=== PATIENT | female | born 1945 | race Caucasian/White ===

== ENCOUNTER → 2016-11-26 | Outpatient (CLI) | payer OTHER ==
--- NOTE | 2016-11-26 12:15 | MA ---
Screening Digital Mammogram With iCAD Analysis Clinical Indications: Routine screening. Technique: Standard cephalocaudal and mediolateral oblique projections were obtained. This examinatio n was processed by the iCAD computer aided detection system. Comparison: November 2015, October 2014, August 2013, July 2012, June 2011, June 2010, January 2009. Breast density: Type B; Scattered fibroglandular densities. Findings: CAD was reviewed. No masses, suspicious calcifications or other signs of malignancy are id entified. There has been no significant change in the appearance of either breast. Impression: Negative mammogram. BI-RADS 1. Recommendation: Routine mammographic screening in one year. [facility] will send a result letter to the patient. Negative mammography should not preclude additional workup of a clinically suspicious finding. The patient's information is entered into a reminder system with a target due date for her next mammo gram.
== END ==
LOC: FIMAGING 09:47
DX: Z12.31 Encounter for screening mammogram for malignant neoplasm of breast (principal)
CPT/HCPCS: G0202

== ENCOUNTER 2017-01-06 11:38 | Emergency (ER) | payer OTHER ==
[2017-01-06 12:06] VITALS: BP 157/88; PULSE 71; RESP 16; TEMP 98.4; O2SAT 91
--- NOTE | 2017-01-06 14:15 | EDPHY ---
H & P Time Seen by Provider: 01/06/17 14:12 HPI/ROS: HPI: 71-year-old female presents to emergency department with chief concern left wrist pain. Onset at 10:00 a.m. when she slipped on a grape while shopping at [employer]. Purely a mechanical fall. Fell on her right knee, and outstretched left hand. Did not strike her head. No headache, neck pain, or back pain. Denies left shoulder, left elbow, or left arm pain. Reports pain of the radial aspect of the left wrist with swelling and mild ecchymosis. Denies weakness, numbness, tingling. Left hand dominant. Denies previous injury of the left wrist. 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 No acute distress. Head: Normalocephalic. Atraumatic. EENT: PERRLA. EOMI. Neck: Supple, nontender. No midline tenderness, full ROM. Respiratory: Breathing unlabored. CV: Chest nontender, atraumatic. Distal pulses 2+. Brisk cap refill all extremities. GI: Deferred Back: No midline thoracic or lumbar tenderness Neuro: Alert. Oriented x 3. Sensation intact all extremities. Skin: Skin warm, dry, intact. No ecchymosis, abrasions, or lacerations. Extremities: No discomfort to palpation of the left shoulder, elbow. Full ROM. Ecchymosis and swelling of the radial aspect of the left wrist. There is discomfort to palpation of the left scaphoid region. Decreased range of motion left wrist. Opposition intact. Neurovascular status intact. 2+ left radial pulse. Right hip, right knee, right ankle, right foot with full range of motion , nontender, atraumatic. DP/PT right lower extremity 2+. Constitutional: Initial Vital Signs Temperature (C) 36.9 C 01/06/17 12:02 Heart Rate 71 01/06/17 12:02 Respiratory Rate 16 01/06/17 12:02 Blood Pressure 157/88 H 01/06/17 12:02 O2 Sat (%) 91 L 01/06/17 12:02 O2 Delivery Mode Room Air Allergies/Adverse Reactions: tramadol Allergy (Severe, Verified 01/06/17 12:07) Other-Enter Comments Home Medications: Medication Instructions Recorded Ascorbic Acid [Vitamin C] 1,000 mg PO DAILY 06/09/15 Aspirin [Aspirin 81mg (*)] 81 mg PO DAILY 06/09/15 Cholecalciferol (Vitamin D3) 5,000 unit PO DAILY 06/09/15 [Vitamin D3] Fish Oil/Dha/Epa [Fish Oil 1,200 1 each PO DAILY 06/09/15 mg Fish Oil] Levothyroxine [Synthroid 125 mcg 125 mcg PO DAILY06 06/09/15 (*)] Multivitamins [Multivitamin (*)] 1 each PO DAILY 06/09/15 Rosuvastatin Calcium [Crestor 5mg] 2.5 mg PO MOTUWETHFRSA 06/09/15 Vit C/Dl-E AC/Lut/Copper/Znox 1 each PO BID 06/09/15 [Preservision Softgel] Fluticasone Nasal 08/25/16 Albuterol 01/06/17 Medical Decision Making - Diagnostics Imaging: Left Hand - 3 views Indication: Fall. Pain. Technique: AP, oblique, and lateral views. Comparison: None Findings: The bones are anatomically aligned. No acute fracture. Minimal osteoarthritis involves the interphalangeal joints and first metacarpocarpal joint. Impression: Negative. No acute fracture. Left Wrist Series, 4 views Indication: Pain. Fall. Comparison: None Findings: The demineralized bones are anatomically aligned. No acute fracture. Joint spaces are preserved. Mild productive arthropathy involves the first metacarpocarpal joint. The scapholunate ligament is borderline wide (3 mm). A small benign erosion is present along the distal navicular bone. Impression: 1. No acute fracture. 2. Laxity versus tear of the scapholunate ligament. Dictated By: Jose Hong MD ED Course/Re-evaluation: 71-year-old female presents to emergency department with injury of the left wrist. She sustained a mechanical fall when she slipped on a grape at [employer] today. She denies other injury. No neck or back pain. Left wrist x-ray shows possible scapholunate dissociation, patient has positive scaphoid tenderness of the left hand. Patient placed in a Velcro wrist splint- neurovascular status intact after application, referred to hand specialist on- call Dr. Kraft Differential Diagnosis: Differential diagnosis includes but is not limited to fracture, occult fracture , strain, ligament injury Departure - Departure Disposition: Home, Routine, Self-Care Clinical Impression: Left wrist injury, Scapholunate instability of left wrist Condition: Good Instructions: Wrist Injury (ED) Additional Instructions: Plan: You may use 400 mg of ibuprofen every 6 hours for fever, inflammation, or pain. Always take ibuprofen with food and stay well hydrated while taking. Do not exceed the maximum allowable dose in a 24 hour period which is 2400 mg. ice every 1-2 hours for 20 minutes for the the next 2-3 days Wear Velcro wrist splint while up and about Follow up with hand specialist Dr. Kraft listed in your paperwork by Friday or of this week--When you call to schedule appointment, please let the office know you are an "ER follow up" appointment" Minimize activity of the left wrist Referrals: Bruna Mercado MD [Primary Care Provider] - As per Instructions Musa Kraft MD [Medical Doctor] - As per Instructions
== END 2017-01-06 14:45 | disposition home or self-care (01) ==
DX: S69.92XA Unspecified injury of left wrist, hand and finger(s), initial encounter (principal); M25.332 Other instability, left wrist; Z87.891 Personal history of nicotine dependence; Z79.82 Long term (current) use of aspirin; W01.0XXA Fall on same level from slipping, tripping and stumbling without subsequent striking against object, initial encounter; Y92.512 Supermarket, store or market as the place of occurrence of the external cause; Y99.8 Other external cause status; Y93.89 Activity, other specified

== ENCOUNTER → 2017-11-07 | Outpatient (CLI) | payer OTHER ==
[~2017-11-07] MED LIST: GADOBUTROL 10 ML VIAL IVP ONE
== END ==
LOC: FIMAGING 08:33
PROVIDERS: ATTEND Psychiatry & Neurology Neurology
DX: R29.810 Facial weakness (principal)
CPT/HCPCS: 70553; 93880; A9585

== ENCOUNTER 2017-11-11 22:02 | Emergency (ER) | payer OTHER ==
[2017-11-11 22:11] VITALS: BP 148/93; PULSE 96; RESP 18; TEMP 98.4; O2SAT 90
--- NOTE | 2017-11-11 23:32 | EDPHY ---
H & P Stated Complaint: hx of tga, says found pt unconscious for 5-10 mins, now amnesia Time Seen by Provider: 11/11/17 22:56 HPI/ROS: HPI The patient presents with an episode of collapse associated with amnesia. The patient had a relatively normal day today, saw her primary care doctor, went to see a movie. She when out to dinner and had 2 glasses of wine. She went home and was in the hot tub for about 15 min. Her had gone to bed and was lying in bed when he heard a thud and he noticed that she had collapsed on the ground and was unconscious. It took her a few minutes to wake up but then she was able to stand up, though walks with an unsteady gait. Her noticed that the patient was very confused and did not remember what happened during the entire day today. She was also confused about upcoming events and could not recall a trip to [facility] which she is taking in a few weeks. Currently, the patient denies any complaints at all, she says she feels fine. She denies any chest pain, shortness of breath, headache, vomiting, vision changes, dizziness, lightheadedness. She has had 2 previous episodes which were identical according to her . These were in 2009 in 2014. She was seen in the emergency department in 2015 and was diagnosed with transient global amnesia after an evaluation versus presyncope. She has been followed by Neurology ever since. She had a neurology evaluation last week and underwent MRI of her brain about 1 week ago which was completely normal she says.. REVIEW OF SYSTEMS Constitutional: No fever, no chills. Eyes: No discharge. ENT: No sore throat. Cardiovascular: No chest pain, no palpitations. Respiratory: No cough, no shortness of breath. Gastrointestinal: No abdominal pain, no vomiting. Genitourinary: No hematuria. Musculoskeletal: No back pain. Skin: No rashes. Neurological: No headache. PMHx: History of transient global amnesia Soc Hx: Lives at home with , has multiple grandchildren, likes to travel PHYSICAL General Appearance: Alert, no distress Head, atraumatic Eyes: Pupils equal and round no pallor or injection ENT, Mouth: Mucous membranes moist Respiratory: There are no retractions, lungs are clear to auscultation Cardiovascular: Regular rate and rhythm Gastrointestinal: Abdomen is soft and non-tender, no masses, bowel sounds normal Neurological: A&O x4, cranial nerves 2-12 intact, 5/5 strength in upper and lower extremities which is symmetric, normal gait; no recall of the events of the last 24 hr Skin: Warm and dry, no rashes Musculoskeletal: Neck is supple non tender Extremities: symmetrical, full range of motion Psychiatric: Patient is oriented X 3, there is no agitation Source: Patient, Family Exam Limitations: Physical impairment - Personal History Tetanus Vaccine Date: < 10 years - Medical/Surgical History Hx Asthma: No Hx Chronic Respiratory Disease: No Hx Diabetes: No Hx Cardiac Disease: Yes Hx Renal Disease: No Hx Cirrhosis: No Hx Alcoholism: No Hx HIV/AIDS: No Hx Splenectomy or Spleen Trauma: No Other PMH: hypothyroid,high cholesterol,temporary global amnesia, bilateral cataract surgery, hysterectomy.R elbow ORIF. - Social History Smoking Status: Former smoker Constitutional: Initial Vital Signs Temperature (C) 36.9 C 11/11/17 22:06 Heart Rate 96 11/11/17 22:06 Respiratory Rate 18 11/11/17 22:06 Blood Pressure 148/93 H 11/11/17 22:06 O2 Sat (%) 90 L 11/11/17 22:06 O2 Delivery Mode Room Air Allergies/Adverse Reactions: tramadol Allergy (Severe, Verified 11/11/17 22:11) Other-Enter Comments Home Medications: Medication Instructions Recorded Ascorbic Acid [Vitamin C] 1,000 mg PO DAILY 06/09/15 Aspirin [Aspirin 81mg (*)] 81 mg PO DAILY 06/09/15 Cholecalciferol (Vitamin D3) 5,000 unit PO DAILY 06/09/15 [Vitamin D3] Fish Oil/Dha/Epa [Fish Oil 1,200 1 each PO DAILY 06/09/15 mg Fish Oil] Levothyroxine [Synthroid 125 mcg 125 mcg PO DAILY06 06/09/15 (*)] Multivitamins [Multivitamin (*)] 1 each PO DAILY 06/09/15 Rosuvastatin Calcium [Crestor 5mg] 2.5 mg PO MOTUWETHFRSA 06/09/15 Vit C/Dl-E AC/Lut/Copper/Znox 1 each PO BID 06/09/15 [Preservision Softgel] Fluticasone Nasal 08/25/16 Albuterol 03/20/17 Medical Decision Making Differential Diagnosis: This is a 72-year-old female, previously diagnosed with transient global amnesia who presents from home with an episode of collapse and subsequent amnesia. The patient has no recall of the event whatsoever. However, her heard her fall and he awoke to find her lying on the ground unconscious. She was able to wake fairly quickly and walk, initially with an unsteady gait which became more steady quickly. Her neurologic exam currently is normal except she does not recall any of the events of today. Her reports that her short-term memory seems to be improving since she has been in the emergency department. Differential diagnosis includes transient global amnesia, TIA, syncope, presyncope, arrhythmia, electrolyte disturbance, intracranial hemorrhage. I explained to the patient and would like to proceed with CT scan of head, EKG, laboratory testing. However both she and her declined any further testing. They feel this episode is identical to her prior episodes and previously all testing has been unrevealing. They would prefer to take her home to get some rest and have her follow up with her neurologist and primary care doctor in the morning. I explained that without the above testing we cannot rule out serious pathology such is life-threatening arrhythmia, intracranial hemorrhage, electrolyte disturbance. They accept these risks and would still like to go home. They are able to come back to the emergency department if her condition changes. They will be discharged home. I have advised them that if they change their mind they can return at any time. Departure - Departure Disposition: Home, Routine, Self-Care Clinical Impression: Loss of consciousness, Amnesia Condition: Good Instructions: Transient Global Amnesia (ED) Additional Instructions: Please follow-up with your primary care doctor and neurologist in 1-2 days. You should return to the emergency room if you would like to pursue further testing for this event. Referrals: Bruna Mercado MD [Primary Care Provider] - As per Instructions
== END 2017-11-11 23:36 | disposition home or self-care (01) ==
DX: R41.3 Other amnesia (principal); R55 Syncope and collapse; Z87.891 Personal history of nicotine dependence; Z79.82 Long term (current) use of aspirin

== ENCOUNTER 2017-11-12 11:39 | Emergency (ER) | payer OTHER ==
[2017-11-12 11:44] VITALS: RESP 18; TEMP 97.9
--- NOTE | 2017-11-12 12:07 | EDPHY ---
H & P Stated Complaint: seen in ed yesteerday post fall/is now concerned r/t pain at l clavicle Time Seen by Provider: 11/12/17 12:06 HPI/ROS: HPI: This is a 72-year-old female presents with Chief Complaint: seen in ed yesterday post fall/is now concerned r/t pain at l clavicle Location: Left collarbone Quality: Bruising Duration: Less than 12 hr Signs and Symptoms: No bleeding, no radiation, no numbness, no weakness, no tingling, no incontinence, no decreased range of motion, + swelling, + pain Timing: Gradual onset Severity: [id number] Context: Patient is left hand dominant, presents with complaints of left collarbone bruising and pain with coughing episodes. Patient is able to use her left shoulder and arm without any difficulty. He was seen in the emergency room last night status post collapse with amnesia. reports that she accidentally fell out of bed and landed between the wall in bed. At baseline walks with unsteady gait. Yesterday was offered head CT scan, EKG, laboratory testing, urinalysis but patient declined as this was like her other episodes. and patient both feel that there baseline today. They are just requesting an x-ray of the collarbone. Denies paresthesias/weakness/ decreased range of movement. Modifying Factors: Comment: ROS: see HPI Constitutional: No fever, no chills, no weight loss Eyes: No blurred vision Respiratory: No shortness of breath, no cough Cardiovascular: No chest pain Gastrointestinal: No nausea, no vomiting no diarrhea Genitourinary: No dysuria Extremities: No myalgias Neurologic: No weakness, no numbness Skin: No rashes Hematologic: No bruising, no bleeding MEDICAL/SURGICAL/SOCIAL HISTORY: Medical/surgical history: hypothyroid,high cholesterol,temporary global amnesia , bilateral cataract surgery, hysterectomy.R elbow ORIF. Social history: Lives at home with her . Has children and grandchildren. CONSTITUTIONAL: Pleasant elderly white female, awake and alert, no obvious distress HEENT: Atraumatic and normocephalic, PERRL, EOMI. Tympanic membranes clear. Oropharynx clear, no exudate and moist pink mucosa. Airway patent. No lymphadenopathy. No meningismus. Cardiovascular: Normal S1/S2, regular rate, regular rhythm, without murmur rub or gallop. PULMONARY/CHEST: Symmetrical and nontender. Clear to auscultation bilaterally. Good air movement. No accessory muscle usage. ABDOMEN: Soft, nondistended, nontender, no rebound, no guarding, no peritoneal signs, no masses or organomegaly. No CVAT. EXTREMITIES: 2/2 pulses, strength 5/5, left SHOULDER: Crepitus noted with any movement; Arc test abduction to 180, abduction to 45, horizontal flexion 130 , horizontal extension to 45, deltoid strength 5/5. No pain with Neer test/ Mahoney test (impingement). No Tenderness to palpation over AC joint. Distal aspect of collarbone shows ecchymosis; no tenting of skin; no crepitus. no deformities, no clubbing, no cyanosis or edema. NEUROLOGICAL: no focal neuro deficits. GCS 15. SKIN: Warm and dry, no erythema. no rash. Good capillary refill. Source: Patient, Family () Exam Limitations: No limitations - Personal History Current Tetanus/Diphtheria Vaccine: Yes Tetanus Vaccine Date: < 10 years - Medical/Surgical History Hx Asthma: No Hx Chronic Respiratory Disease: No Hx Diabetes: No Hx Cardiac Disease: Yes Hx Renal Disease: No Hx Cirrhosis: No Hx Alcoholism: No Hx HIV/AIDS: No Hx Splenectomy or Spleen Trauma: No Other PMH: hypothyroid,high cholesterol,temporary global amnesia, bilateral cataract surgery, hysterectomy.R elbow ORIF. - Social History Smoking Status: Former smoker Constitutional: Initial Vital Signs Temperature (C) 36.6 C 11/12/17 11:41 Heart Rate 97 11/12/17 11:41 Respiratory Rate 18 11/12/17 11:41 Blood Pressure 163/118 H 11/12/17 11:41 O2 Sat (%) 91 L 11/12/17 11:41 O2 Delivery Mode Room Air Allergies/Adverse Reactions: tramadol Allergy (Severe, Verified 11/12/17 11:40) Other-Enter Comments Home Medications: Medication Instructions Recorded Ascorbic Acid [Vitamin C] 1,000 mg PO DAILY 06/09/15 Aspirin [Aspirin 81mg (*)] 81 mg PO DAILY 06/09/15 Cholecalciferol (Vitamin D3) 5,000 unit PO DAILY 06/09/15 [Vitamin D3] Fish Oil/Dha/Epa [Fish Oil 1,200 1 each PO DAILY 06/09/15 mg Fish Oil] Levothyroxine [Synthroid 125 mcg 125 mcg PO DAILY06 06/09/15 (*)] Multivitamins [Multivitamin (*)] 1 each PO DAILY 06/09/15 Rosuvastatin Calcium [Crestor 5mg] 2.5 mg PO MOTUWETHFRSA 06/09/15 Vit C/Dl-E AC/Lut/Copper/Znox 1 each PO BID 06/09/15 [Preservision Softgel] Fluticasone Nasal 08/25/16 Albuterol 01/06/17 oxyCODONE/APAP 5/325 [Percocet 1 - 2 tab PO Q4H PRN #10 tab 11/12/17 5/325 (*)] Medical Decision Making - Diagnostics Imaging Results: Imaging Impressions Shoulder X-Ray 11/12/17 11:49 Impression: Nothing acute identified. 2. Left Clavicle, 2 views History: Pain, recent dislocation Comparison: Chest x-ray July 07, 2015 Findings: There is a fracture deformity of the mid left clavicle shaft that may be acute. It is overlapping approximately 3 cm. Impression: Indeterminant age midclavicular shaft fracture with overlap. The appearance is certainly new since June 2015. Correlation with the site of symptoms is recommended. Clavicle X-Ray 11/12/17 12:12 Impression: Nothing acute identified. 2. Left Clavicle, 2 views History: Pain, recent dislocation Comparison: Chest x-ray July 07, 2015 Findings: There is a fracture deformity of the mid left clavicle shaft that may be acute. It is overlapping approximately 3 cm. Impression: Indeterminant age midclavicular shaft fracture with overlap. The appearance is certainly new since June 2015. Correlation with the site of symptoms is recommended. Procedures: Procedure: Splint placement. A left sling was applied the Emergency Room pharmacy technician program director. After application of the splint I returned and re-examined the patient. The splint was adequately immobilizing the joint and distal to the splint the patient's circulation and sensation was intact. ED Course/Re-evaluation: Left collarbone x-ray, left shoulder x-ray ordered No signs of neurovascular compromise/tenting of skin/compartment syndrome/ extremities and joints examined above and below area of concern and are neurovascularly intact. Left collarbone x-ray my read shows midshaft fracture; mildly displaced; overlapping Placed in sling Patient reports that she does not tolerate tramadol; Percocet given with adequate pain relief; follow-up with Dr. Kumar. This patient was seen under the supervision of my secondary supervising physician. I evaluated care for this patient independently. Differential Diagnosis: Differential diagnosis lose but is not limited to collarbone fracture, AC joint sprain, humerus fracture, contusion, left shoulder sprain. Departure - Departure Disposition: Home, Routine, Self-Care Clinical Impression: Closed left clavicular fracture Qualifiers: Encounter type: initial encounter Clavicle location: shaft Fracture alignment: displaced Qualified Code(s): S42.022A - Displaced fracture of shaft of left clavicle, initial encounter for closed fracture Condition: Good Instructions: Clavicle Fracture (ED), Closed Reduction Internal Fixation of an Upper Extremity Fracture (DC) Additional Instructions: Wear the sling except to shower until seen by orthopedics. Take Tylenol 650 mg every 4 hours and/or Ibuprofen 600 mg every 8 hours with food as needed for pain. Use Percocet every 6 hours as needed for severe/breakthrough pain. Do not use Tylenol and Percocet concominantly. Apply ice for 30 minutes at a time; 2-3 times per day for the next 1-2 days. Follow up with Orthopedics in 3-5 days at which time they will evaluate and recommend with you if conservative management versus surgery is indicated. Referrals: Bruna Mercado MD [Primary Care Provider] - As per Instructions Harris Kumar MD [Medical Doctor] - As per Instructions Prescriptions: oxyCODONE/APAP 5/325 [Percocet 5/325 (*)] 1 - 2 tab PO Q4H PRN #10 tab PRN Reason: Pain, Severe
[2017-11-12] MEDS ORDERED: OXYCODONE/APAP 5/325 TAB PO ONE (13:01)
[2017-11-12 13:15] VITALS: BP 152/76; PULSE 74; O2SAT 98
== END 2017-11-12 13:16 | disposition home or self-care (01) ==
DX: S42.022D Displaced fracture of shaft of left clavicle, subsequent encounter for fracture with routine healing (principal); Z79.82 Long term (current) use of aspirin; Z87.891 Personal history of nicotine dependence; W06.XXXD Fall from bed, subsequent encounter
CPT/HCPCS: 73000; 73030; 99283; A4565

== ENCOUNTER 2017-11-13 12:18 | Observation (INO) | payer OTHER ==
--- NOTE | 2017-11-13 13:08 | EDPHY ---
H & P Stated Complaint: Dizziness, falls 24 hours, visit yesterday. Time Seen by Provider: 11/13/17 13:03 HPI/ROS: HPI: This is a 72-year-old female who presents with Chief Complaint: Dizziness, falls 24 hours, visit yesterday. Location: Head Quality: Dizziness Duration: 24 hr Signs and Symptoms: No fever, no chest pain, no shortness of breath, no diarrhea, no nausea, no vomiting Timing: Intermittent episodes Severity: Faux-du-pyzkchui Context: Patient has a history of temporary global amnesia,presents to the emergency room for the 3rd time with complaints of dizziness yesterday evening causing her to feel "woozy" and multiple falls. reports he was able to catch her and there was no hitting of her head. Although 2 days ago, patient also fell at that time and hit her head. She was offered a head CT scan and laboratory examination the emergency room but both patient and politely declined. I saw patient yesterday for left shoulder pain. Diagnosed her with a left minimally displaced collarbone fracture; she was placed in a sling. Patient was recently increased from 81 mg to 325 mg of aspirin within the last week. Denies fever, shortness of breath, chest pain, radiation, weakness, aphasia. Patient looks to her to complete the history. Modifying Factors: None Comment: ROS: see HPI Constitutional: No fever, no chills, no weight loss Eyes: No blurred vision Respiratory: No shortness of breath, no cough Cardiovascular: No chest pain Gastrointestinal: No nausea, no vomiting, no diarrhea Genitourinary: No dysuria Extremities: No myalgias Neurologic: No weakness, no numbness Skin: No rashes Hematologic: No bruising, no bleeding MEDICAL/SURGICAL/SOCIAL HISTORY: Medical/surgical history: hypothyroid,high cholesterol,temporary global amnesia , bilateral cataract surgery, hysterectomy.R elbow ORIF. Social history: CONSTITUTIONAL: Elderly pleasant nontoxic appearing female, talkative, awake and alert, no obvious distress HEENT: Atraumatic and normocephalic, PERRL, EOMI. Tympanic membranes clear. Oropharynx clear, no exudate and moist pink mucosa. Airway patent. No lymphadenopathy. No meningismus. Cardiovascular: Normal S1/S2, regular rate, regular rhythm, without murmur rub or gallop. PULMONARY/CHEST: Symmetrical and nontender. Clear to auscultation bilaterally. Good air movement. No accessory muscle usage. ABDOMEN: Soft, nondistended, nontender, no rebound, no guarding, no peritoneal signs, no masses or organomegaly. No CVAT. EXTREMITIES: 2/2 radial pulses, strength 5/5, left clavicle shows ecchymosis. Left SHOULDER: Arc test abduction to 1000, abduction to 45, horizontal flexion 100, horizontal extension to 45, deltoid strength 5/5. No pain with Neer test/Mahoney test (impingement). No Tenderness to palpation over AC joint. no clubbing, no cyanosis or edema. NEUROLOGICAL: no focal neuro deficits. GCS 15. Memory deficits noted. SKIN: Warm and dry, no erythema. no rash. Good capillary refill. Source: Patient, Family () - Personal History Current Tetanus/Diphtheria Vaccine: Unsure Current Tetanus Diphtheria and Acellular Pertussis (TDAP): Unsure Tetanus Vaccine Date: < 10 years - Medical/Surgical History Hx Asthma: No Hx Chronic Respiratory Disease: No Hx Diabetes: No Hx Cardiac Disease: Yes Hx Renal Disease: No Hx Cirrhosis: No Hx Alcoholism: No Hx HIV/AIDS: No Hx Splenectomy or Spleen Trauma: No Other PMH: hypothyroid,high cholesterol,temporary global amnesia, bilateral cataract surgery, hysterectomy.R elbow ORIF. - Social History Smoking Status: Former smoker Constitutional: Initial Vital Signs Temperature (C) 36.7 C 11/13/17 12:45 Heart Rate 89 11/13/17 12:45 Respiratory Rate 16 11/13/17 12:45 Blood Pressure 195/130 H 11/13/17 12:45 O2 Sat (%) 93 11/13/17 12:45 O2 Delivery Mode Room Air Allergies/Adverse Reactions: tramadol Allergy (Severe, Verified 11/13/17 12:45) Other-Enter Comments Home Medications: Medication Instructions Recorded Ascorbic Acid [Vitamin C] 1,000 mg PO DAILY 06/09/15 Cholecalciferol (Vitamin D3) 5,000 unit PO DAILY 06/09/15 [Vitamin D3] Multivitamins [Multivitamin (*)] 1 each PO DAILY 06/09/15 Fluticasone Nasal [Flonase Nasal 1 sprays NASAL DAILY PRN 08/25/16 [facility] (RX)] Albuterol [Proventil Inhaler HFA 1 - 2 puffs IH DAILY PRN 01/06/17 (*)] Aspirin [Aspirin 325 mg (*)] 325 mg PO DAILY 11/13/17 C/E/Zn/Cu/OM3/DHA/EPA/LUT/ZEAX 2 each PO DAILY 11/13/17 [Preservision Areds 2 Softgel] Escitalopram Oxalate [Lexapro] 10 mg PO DAILY 11/13/17 Levothyroxine [Synthroid 100 mcg 100 mcg PO DAILY06 11/13/17 (*)] [place]-3 Fatty Acids [Fish Oil 1000 1,000 mg PO DAILY 11/13/17 mg (*)] Omeprazole [Prilosec 20 mg] 20 mg PO DAILY 11/13/17 Phospserin/[place]-3/Dha/Epa 1 each PO DAILY 11/13/17 [Vayacog Capsules] Rosuvastatin Calcium [Crestor 10mg 10 mg PO DAILY 11/13/17 (RX)] Medical Decision Making - Diagnostics EKG Interpretation: 12 lead EKG: Indication: Dizziness Rhythm: Normal sinus rhythm, rate 84 beats per minute [place]: Normal Intervals: Normal QRS: Normal ST segments: Nonspecific changes INTERPRETATION: No acute ischemic changes The 12 lead EKG was interpreted by myself and with attending. Imaging Results: Imaging Impressions Head CT 11/13/17 13:08 Impression: 1. Subarachnoid hemorrhage in the right sylvian fissure and over the right frontal lobe. 2. Tiny right frontal hemorrhage in the periventricular white matter. 3. Additional findings as above. Findings discussed with Re Foster PA-C, on November 13, 2017 at 1346 hours. ED Course/Re-evaluation: EKG, labs, urinalysis, head CT scan ordered 1355: Called by radiologist who advised that there is a subarachnoid hemorrhage in the right sylvian fissure. New from MR on 11/07/2017. Patient noted to be hypertensive of systolic 180-190 upon arrival. Urinalysis shows signs of infection; urine culture sent; IV Rocephin given ED decision to consult for admission. Spoke with Neurology, Dr. Zamora, who kindly agrees to admit to provide further care. This patient was seen under the supervision of my secondary supervising physician. I evaluated care for this patient independently. Differential Diagnosis: Head injury including but not limited to concussion, skull fracture, intraparenchymal contusion, subarachnoid, subdural and epidural hematoma. - Data Points Laboratory Results: Laboratory Results 11/13/17 13:14 11/13/17 13:14 11/13/17 11/13/17 13:14 13:14 WBC 10.30 10^3/uL H 10^3/uL (3.80-9.50) RBC 4.51 10^6/uL 10^6/uL (4.18-5.33) Hgb 14.1 g/dL g/dL (12.6-16.3) Hct 41.7 % % (38.0-47.0) MCV 92.5 fL fL (81.5-99.8) MCH 31.3 pg pg (27.9-34.1) MCHC 33.8 g/dL g/dL (32.4-36.7) RDW 13.2 % % (11.5-15.2) Plt Count 292 10^3/uL 10^3/uL (150-400) MPV 8.6 fL L fL (8.7-11.7) Neut % (Auto) 64.0 % % (39.3-74.2) Lymph % (Auto) 23.8 % % (15.0-45.0) Cache % (Auto) 10.9 % % (4.5-13.0) Eos % (Auto) 0.3 % L % (0.6-7.6) Baso % (Auto) 0.6 % % (0.3-1.7) Nucleat RBC Rel Count 0.0 % % (0.0-0.2) Absolute Neuts (auto) 6.60 10^3/uL H 10^3/uL (1.70-6.50) Absolute Lymphs (auto) 2.45 10^3/uL 10^3/uL (1.00-3.00) Absolute Monos (auto) 1.12 10^3/uL H 10^3/uL (0.30-0.80) Absolute Eos (auto) 0.03 10^3/uL 10^3/uL (0.03-0.40) Absolute Basos (auto) 0.06 10^3/uL 10^3/uL (0.02-0.10) Absolute Nucleated RBC 0.00 10^3/uL 10^3/uL (0-0.01) Immature Gran % 0.4 % % (0.0-1.1) Immature Gran # 0.04 10^3/uL 10^3/uL (0.00-0.10) Sodium 136 mEq/L mEq/L (135-145) Potassium 4.5 mEq/L mEq/L (3.5-5.2) Chloride 99 mEq/L mEq/L (97-110) Carbon Dioxide 26 mEq/l mEq/l (22-31) Anion Gap 11 mEq/L mEq/L (8-16) BUN 17 mg/dL mg/dL (7-23) Creatinine 0.6 mg/dL mg/dL (0.6-1.0) Estimated GFR > 60 Glucose 115 mg/dL H mg/dL (70-100) Calcium 9.8 mg/dL mg/dL (8.5-10.4) Total Bilirubin 0.5 mg/dL mg/dL (0.1-1.4) Conjugated Bilirubin 0.3 mg/dL mg/dL (0.0-0.5) Unconjugated Bilirubin 0.2 mg/dL mg/dL (0.0-1.1) AST 35 IU/L IU/L (14-46) ALT 31 IU/L IU/L (9-52) Alkaline Phosphatase 103 IU/L IU/L (38-126) Troponin I < 0.012 ng/mL ng/mL (0.000-0.034) Total Protein 7.1 g/dL g/dL (6.3-8.2) Albumin 4.2 g/dL g/dL (3.5-5.0) Departure - Departure Disposition: [facility] Acute Clinical Impression: Subarachnoid hemorrhage Hypertension Qualifiers: Hypertension type: essential hypertension Qualified Code(s): I10 - Essential ( primary) hypertension Condition: Fair
--- NOTE | 2017-11-13 13:15 | CPEKG ---
Heart Rate: 84 RR Interval: 714 P-R Interval: 144 QRSD Interval: 64 QT Interval: 372 QTC Interval: 440 P [place]: 74 QRS [place]: 51 T Wave Broughton: 43 EKG Severity - NORMAL ECG - EKG Impression: SINUS RHYTHM Electronically Signed By: Yon Fuentes 13-Nov-2017 14:50:25
[2017-11-13 13:25] LABS: PLATELET COUNT 292 10^3/uL (150-400)
[2017-11-13] MEDS ORDERED: cefTRIAXone 1 GM in STERILE WATER INJ 10 ML IV ONE (15:19)
[2017-11-13] MEDS ORDERED: FLUTICASONE NASAL 120 SPRAYS/16 GM MDI NS PRN (20:47)
[2017-11-13] MEDS ORDERED: ALBUTEROL 60 PUFFS/8 GM MDI IH PRN (20:47)
[2017-11-13] MEDS ORDERED: ONDANSETRON 4 MG/2 ML VIAL IVP PRN (20:58)
[2017-11-13] MEDS ORDERED: ACETAMINOPHEN 325 MG TAB PO PRN (20:58)
[2017-11-13] MEDS ORDERED: ONDANSETRON DISINTEGRATING 4 MG TAB PO PRN (20:58)
[2017-11-13] MEDS ORDERED: NS 1,000 ML IV SCH (21:00)
--- NOTE | 2017-11-13 21:06 | GCON ---
[f rep st] CONSULTATION NEUROSURGERY CONSULTATION DATE OF CONSULTATION: 11/13/2017 TIME SEEN: The patient was seen and evaluated and [facility] at 4 p.m. HPI: The patient is a 72-year-old lady with some unusual recent episodes, which she and her call transient global amnesia. Apparently, she gets woozy and then apparently has syncopal episodes. They then say that her memory is delayed for approximately 4-5 hours after these episodes. She did have a fall about 2 days ago where she fell and had a clavicle fracture. She then again got dizzy i n the middle of the night last night and fell, but did not hit her head. Again, today, she was somew hat dizzy so she came into the ER, and a CT of the head showed a very tiny amount of right sylvian tr aumatic subarachnoid hemorrhage. There is no shift or mass effect. She is currently completely asym ptomatic and feels fine with the exception of the shoulder pain. Her dizziness is gone. She does linn ve an outpatient neurologist, Dr. Lizette Pitts, in [place], and they have been working up her syncop al issues. REVIEW OF SYSTEMS: A 10-point review of systems is negative other than described above in HPI. PAST MEDICAL AND SURGICAL HISTORY: 1. Hypothyroidism. 2. Hypercholesterolemia. 3. Temporary global amnesia. 4. Bilateral cataract. 5. Hysterectomy. 6. Right elbow open reduction internal fixation. SOCIAL HISTORY: The patient is . She is accompanied by her . She denies any alcohol, tobacco, or other drug use. FAMILY HISTORY: Negative for any neurologic disease and remaining medical history is noncontributory to this admission. ALLERGIES: Tramadol. MEDICATIONS: 1. Vitamin C. 2. Vitamin D. 3. Multivitamin. 4. Flonase. 5. Albuterol. 6. Aspirin. 7. Lexapro. 8. Synthroid. 9. Fish oil. 10. Prilosec. 11. Rosuvastatin. PHYSICAL EXAMINATION: VITAL SIGNS: Currently, she is afebrile with normal stable vital signs. GENE RAL: She is awake, alert, and oriented x3. HEENT: Pupils are equal, round, reactive to light. Ext raocular movements are intact. Face symmetric. Tongue is midline. Palate is symmetric. EXTREMITIE S: She has 5/5 strength at the deltoids, biceps, triceps, wrist flexion, extension, and fisher eel bilater ally. Lower extremities: She has 5/5 strength of the hip flexors and extensors, knee flexors and ex tensors, and plantar and dorsiflexion bilaterally. NEUROLOGIC: Her sensation is normal, deep tendon reflexes are normal, and her speech is normal. IMAGING: See HPI. LABORATORY DATA: White count is 10.3, hemoglobin 14.1, hematocrit 41.7, platelet count is 292,000. Sodium is 136, potassium 4.5, BUN 17, creatinine 0.6, glucose 115. ASSESSMENT AND PLAN: The patient is a 72-year-old woman who has suffered multiple recent falls with what she is describing as temporary global amnesia. She is in the process of getting these falls wor ked up. With her fall of 2 days ago, it appears as though she may have had a tiny traumatic subarach noid hemorrhage. I do not think that had anything to do with any of her symptoms that caused her to come to the hospital, namely the dizziness, however this seems to be more related to her underlying p athology. I do not think that any further CT scans or imaging for the subarachnoid hemorrhage are ne cessary and the medicine team is going to work her up for the other issues. We will see the patient again tomorrow morning to be sure that she is neurologically stable, but othe rwise will likely sign off. Please let us know if we can be of any further assistance in the future. I do not think that it is necessary to stop her aspirin given this tiny amount of traumatic subarac hnoid hemorrhage. Thanks for the kind consultation. /[id number]/MODL
[2017-11-13] MEDS ORDERED: IOPAMIDOL (ISOVUE 370) 100 ML BTL IV ONE (21:15)
[2017-11-13] MEDS ORDERED: OXYCODONE/APAP 5/325 TAB PO PRN (21:20)
--- NOTE | 2017-11-13 21:52 | GHP ---
[f rep st] HISTORY AND PHYSICAL DATE OF ADMISSION: 11/13/2017 HISTORY OF PRESENT ILLNESS: The patient is a pleasant 72-year-old female, with a history of transien t global amnesia which has in her been described as some loss of memory with falls. She has actually been in the ER a couple of times over the last few days with falls and she actually hit her head and wreath maker her shoulder. She was here on the , the , and then again today. She declined head C T a couple of days ago but ultimately got one today, showing a small subarachnoid hemorrhage. She al so fractured her mid left clavicle. She re-presented today with the complaints of dizziness causing her to feel woozy with falls. She linn s never had an outpatient desk monitor. She has never had an EEG. She denies any history of prio r cardiac morbidity. On the , she was diagnosed with a clavicular fracture and given a sling. She was seen by Neurosurgery, who felt that further management of her subarachnoid hemorrhage was unn ecessary given its small size. To clarify, it sounds like she had an episode 2 days ago where she fell and hit her clavicle and then she got dizzy last night and fell but did not hit her head. Again, she felt dizzy today where she h ad a small amount of subarachnoid and intraparenchymal hemorrhage. The patient denies exertional angina. She does have a history of hyperlipidemia and she takes an asp irin daily. REVIEW OF SYSTEMS: A complete 10-point review of systems was conducted and negative except as noted in the HPI. PAST MEDICAL HISTORY: 1. Hypothyroidism. 2. Hyperlipidemia. 3. Reactive airway disease. 4. Reflux. ALLERGIES: Tramadol. HOME MEDICATIONS: 1. Aspirin. 2. Ascorbic acid. 3. Albuterol. 4. Oxycodone. 5. PreserVision. 6. Vitamin D3. 7. Escitalopram. 8. Levothyroxine. 9. Multivitamin. 10. Fish oil. 11. Omeprazole. 12. Vayacog capsules. 13. Rosuvastatin. SOCIAL HISTORY: No tobacco, no alcohol. 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 FAMILY HISTORY: Parents . PHYSICAL EXAM: VITAL SIGNS: Today, presenting blood pressure 195/130, pulse 89, breathing 16 times a minute, 92% on room air. She has become tachycardic. She had orthostatic vital signs checked whic h showed that while her heart rate went from 116 to 131, she did not become hypotensive. GENERAL: N o acute distress. HEENT: Sclerae anicteric. Oropharynx clear. Mucous membranes are moist. NECK: Supple without lymphadenopathy or JVD. LUNGS: Clear to auscultation bilaterally. HEART: S1, S2. Tachycardic. ABDOMEN: Soft, nontender, nondistended. LOWER EXTREMITIES: Without edema. Calves a re nontender. She has bruising over the left shoulder and clavicle area. SKIN: Without rash. NEUR OLOGIC: Nonfocal. STUDIES: EKG interpreted by me shows sinus at 84 with normal axis and intervals. Q-wave in lead 3 t hat is pretty small. No ST or T-wave changes. Head CT shows subarachnoid hemorrhage in the right sy lvian fissure and over the right frontal lobe, entire right frontal hemorrhage with periventricular w thelma matter. I discussed the case with Dr. Roc Zamora of Neurosurgery. LABORATORY DATA: White count 10.3, hematocrit 42, platelets of 292,000. Sodium 136, potassium 4.5, chloride 99, bicarb 26, BUN 17, creatinine 0.6, glucose 115. Troponin negative. UA shows 5-10 white cells. ASSESSMENT AND PLAN: This is a 72-year-old female with falls with injury, characterized as transient global amnesia. 1. Transient global amnesia. This is not consistent with this diagnosis. Typically, these people h ave no other neurologic symptoms other than a lapse of memory that this slowly resolves. I have seri ous concerns that this test represents this. 2. Falls with injury. This is concerning for seizures and/or cardiac arrhythmia. I have placed the patient on telemetry. I have ordered an EEG for the morning. She should be discharged with a 30-da y event monitor at least. Cardiology can be consulted in the morning on the . 3. Sinus tachycardia with falls. This warrants evaluation for pulmonary embolism. I will also chec k a TSH. I have ordered a CT angiogram. Certainly, if it is positive for pulmonary embolism, then a nticoagulation will need to be discussed with Neurosurgery. 4. Hyperlipidemia. Continue her statin. 5. Reactive airway disease. Continue her albuterol. DISPOSITION: Inpatient status. /[id number]/MODL
[2017-11-13] MEDS ORDERED: hydrALAZINE 20 MG/ML VIAL IVP PRN (22:24)
[2017-11-14 05:27] LABS: PLATELET COUNT 255 10^3/uL (150-400)
[2017-11-14] MEDS ORDERED: OXYCODONE/APAP 5/325 TAB PO PRN (06:00)
[2017-11-14] MEDS ORDERED: LEVOTHYROXINE 100 MCG TAB PO SCH (06:00)
[2017-11-14 07:56] VITALS: BP 137/77; PULSE 94; RESP 15; TEMP 98.5; O2SAT 91
--- NOTE | 2017-11-14 08:44 | SOAPPROG ---
SOAP Progress Note Assessment/Plan: Assessment: 72 female with left clavicle fracture. minimally painful small old TSAH on CTH. Neuro intact. Plan: We will sign off. No follow up needed. Discussed with Dr. Zamora Subjective: Awake, alert, feeling fine. Denies JIMENES or focal neuro changes She wants to go home Objective: Vital Signs Temp Pulse Resp BP Pulse Ox 36.9 C 94 15 137/77 H 91 L 11/14/17 07:51 11/14/17 07:51 11/14/17 07:51 11/14/17 07:51 11/14/17 07:51 Laboratory Results 11/14/17 05:17 11/14/17 05:17 11/13/17 11/14/17 11/15/17 05:59 05:59 05:59 Intake Total 1325 Balance 1325 Neuro: A+0x4 no facial droop no pronator drift equal strength throughout follows commands ICD10 Worksheet Patient Problems: Problems Problem Status Onset Hypertension Acute Subarachnoid hemorrhage Acute TIA (transient ischemic attack) Acute
[2017-11-14] MEDS ORDERED: MULTIVITAMINS 1 EACH TAB PO SCH (09:00)
[2017-11-14] MEDS ORDERED: PRESERVISION AREDS2 FORMULA EYE VIT 1 EACH PO SCH (09:00)
[2017-11-14] MEDS ORDERED: CHOLECALCIFEROL VIT D3 2,000 UNITS TAB/CAP PO SCH (09:00)
[2017-11-14] MEDS ORDERED: ESCITALOPRAM OXALATE 10 MG TAB PO SCH (09:00)
[2017-11-14] MEDS ORDERED: ASCORBIC ACID 500 MG TAB PO SCH (09:00)
[2017-11-14] MEDS ORDERED: ENOXAPARIN 40 MG/0.4 ML SYR SC SCH (09:00)
[2017-11-14] MEDS ORDERED: ROSUVASTATIN CALCIUM 10 MG TAB PO SCH (09:00)
[2017-11-14] MEDS ORDERED: ASPIRIN 325 MG TAB PO SCH (09:00)
[2017-11-14] MEDS ORDERED: VAYACOG PO SCH (09:00)
[2017-11-14] MEDS ORDERED: OMEGA-3 FATTY ACIDS 1,000 MG CAP PO SCH (09:00)
[2017-11-14] MEDS ORDERED: PANTOPRAZOLE SODIUM 40 MG TAB PO SCH (09:00)
--- NOTE | 2017-11-14 12:50 | GDS ---
[f rep st] DISCHARGE SUMMARY ALL DIAGNOSES: 1. Multiple recent falls. 2. History of transient global amnesia. 3. Subarachnoid hemorrhage. 4. Broken clavicle. 5. Sinus tachycardia. 6. Hyperlipidemia. 7. Reactive airways disease. HOSPITAL COURSE: A 72-year-old female with multiple falls over the last 3 days , described as loss of consciousness, no real postictal period. Workup here included telemetry monitoring, which is negative for arrhythmia. Additionally, she had a CT angiogram, which was negative for pulmonary embolus. She had a head CT, which showed a subarachnoid hemorrhage. She was seen by Neurosurgery, who has cleared her for discharge, recommends no followup for this. I offered her ongoing admission to further evaluate the etiology of her falls versus syncope. She is very anxious for discharge at this time. I offered an inpatient EEG, echocardiogram, cardiology evaluation. She would prefer to do this as an outpatient. I have set her up to olive picker a Holter monitor at [facility] today after discharge. She also has an outpatient echocardiogram ordered. She will also make a followup in the next 3-4 days, with a aircraft painter apprentice or PA/ACCOUNTS RECEIVABLE BOOKKEEPER , to review the results of this testing. She will follow up with her neurologist , Lizette Candelario in [place], for outpatient EEG. I have stressed to her that I am very concerned about her multiple falls. She expresses understanding and will follow up appropriately. BILLING: I spent more than 30 minutes on the day of discharge coordinating care. Addendum: urine culture with GNR NLF. Previous cultures with e. coli, susceptible to ancef. RX called into pharmacy for keflex x 6 days. Left for patient. /[id number]/MODL MTDD
== END 2017-11-14 14:08 | disposition home or self-care (01) ==
LOC: INTOOBSV 14:01 → F2N 16:32
PROVIDERS: ADMIT Neurological Surgery; ATTEND Student in an Organized Health Care Education/Training Program
DX: S06.6X0A Traumatic subarachnoid hemorrhage without loss of consciousness, initial encounter (principal); R29.6 Repeated falls; S42.022A Displaced fracture of shaft of left clavicle, initial encounter for closed fracture; N39.0 Urinary tract infection, site not specified; B96.20 Unspecified Escherichia coli [E. coli] as the cause of diseases classified elsewhere; Z16.11 Resistance to penicillins; R42 Dizziness and giddiness; R41.3 Other amnesia; R03.0 Elevated blood-pressure reading, without diagnosis of hypertension; R00.0 Tachycardia, unspecified; E78.5 Hyperlipidemia, unspecified; J98.4 Other disorders of lung; E03.9 Hypothyroidism, unspecified; W19.XXXD Unspecified fall, subsequent encounter; K21.9 Gastro-esophageal reflux disease without esophagitis; Z79.82 Long term (current) use of aspirin; Z87.891 Personal history of nicotine dependence; Z66 Do not resuscitate
CPT/HCPCS: 70450; 71275; 92507; 92523; 93005; 96374; 97161; 99285; G0378; G8978; G8979; G8980; G9168; G9169; G9170; J0360; J0696; Q9967; 84481-90

== ENCOUNTER 2017-11-24 15:37 | Emergency (ER) | payer OTHER ==
--- NOTE | 2017-11-24 17:40 | CPEKG ---
Heart Rate: 77 RR Interval: 779 P-R Interval: 160 QRSD Interval: 64 QT Interval: 384 QTC Interval: 435 P [place]: 76 QRS Guinda: 58 T Wave Guinda: 50 EKG Severity - NORMAL ECG - EKG Impression: SINUS RHYTHM Electronically Signed By: Catrina Tsai 24-Nov-2017 23:30:07
--- NOTE | 2017-11-24 17:52 | EDPHY ---
H & P Stated Complaint: BP high today Time Seen by Provider: 11/24/17 16:57 HPI/ROS: Chief complaint: High blood pressure History of present illness: This is a 72-year-old female with multiple medical problems including a recent fall resulting in a subarachnoid hemorrhage who presents to the emergency department for high blood pressure. Patient does not have a history of high blood pressure. She is not currently treated for blood pressure. She has been monitoring her blood pressure at home with a home device and has noted her blood pressure which has been elevated over the last few days with maximum elevation today in the low 200s over 100s. In discussion with patient she states she has a minor headache although she has had a headache since she injured her head a few weeks ago. She denies other associated signs or symptoms including no cough, no trouble breathing, no chest pain, no changes in urinary habits, no pain or swelling in the legs or other parts of the body. Review of systems: A 10 point review of systems was obtained and other than described above was negative - Personal History Current Tetanus Diphtheria and Acellular Pertussis (TDAP): Yes Tetanus Vaccine Date: < 10 years - Medical/Surgical History Hx Asthma: No Hx Chronic Respiratory Disease: No Hx Diabetes: No Hx Cardiac Disease: Yes Hx Renal Disease: No Hx Cirrhosis: No Hx Alcoholism: No Hx HIV/AIDS: No Hx Splenectomy or Spleen Trauma: No Other PMH: hypothyroid,high cholesterol,temporary global amnesia, bilateral cataract surgery, hysterectomy.R elbow ORIF., mild asthma - Social History Smoking Status: Former smoker - Physical Exam Exam: General Appearance: Alert, no distress. Eyes: Pupils equal and round no pallor or injection. ENT, Mouth: Mucous membranes moist. Respiratory: There are no retractions, lungs are clear to auscultation. Cardiovascular: Regular rate and rhythm. Gastrointestinal: Abdomen is soft and non tender, no masses, bowel sounds normal. Neurological: Alert and oriented x4. Cranial nerves 2-12 grossly intact. Strength and sensation intact and symmetrical. No meningismus. She is ambulating well. Skin: Warm and dry, no rashes. Musculoskeletal: Neck is supple non tender. Extremities are symmetrical, full range of motion. Psychiatric: Patient is oriented X 3, there is no agitation. Constitutional: Initial Vital Signs Temperature (C) 36.9 C 11/24/17 16:00 Heart Rate 76 11/24/17 16:00 Respiratory Rate 18 11/24/17 16:00 Blood Pressure 176/121 H 11/24/17 16:00 O2 Sat (%) 94 11/24/17 16:00 O2 Delivery Mode Room Air Allergies/Adverse Reactions: tramadol Allergy (Unknown, Verified 11/24/17 15:58) Other-Enter Comments Home Medications: Medication Instructions Recorded Albuterol [Proventil Inhaler HFA 1 - 2 puffs IH DAILY PRN 01/06/17 (*)] Aspirin [Aspirin 325 mg (*)] 325 mg PO DAILY 11/13/17 Escitalopram Oxalate [Lexapro 10 10 mg PO DAILY 11/13/17 MG] Levothyroxine [Synthroid 100 mcg 100 mcg PO DAILY06 11/13/17 (*)] Omeprazole [Prilosec 20 mg] 20 mg PO DAILY 11/13/17 Rosuvastatin Calcium [Crestor] 10 mg PO DAILY 11/13/17 Lisinopril 10 mg PO DAILY #14 tablet 11/24/17 Medical Decision Making - Diagnostics Imaging Results: Imaging Impressions Head CT 11/24/17 17:08 Impression: Stable right posterior frontal periventricular hemorrhage without new or extended hemorrhage. Results called to Sachin Gee MA at 5:35 PM. General information for patients regarding this examination can be found at [email or web address]. If you have questions or comments about this report, please contact me at (hospital) or [phone] (cell). Imaging: Discussed imaging studies w/ machine scallop cutter Radiologist ED Course/Re-evaluation: Patient is discussed with my secondary supervising physician Dr. Catrina Tsai. Patient presents to the emergency department hypertensive. She has a mild headache. She is well appearing. Physical exam is benign including a nonfocal neurologic exam. CT scan of the head is stable compared to previous one. Blood studies are unremarkable. I do not appreciate evidence of end- organ damage. I have consulted with the physician assistant professor surgical technology relationship assoc for patient 's primary care doctor. We have agreed to start patient on lisinopril 10 mg orally once daily. She is given a dose this evening and will start continue tomorrow. She will follow up with her primary care doctor tomorrow for recheck. In addition she has an appointment with a hospital nurse liaison in 3 days. Home care is discussed. Strict return precautions are given. The patient voiced understanding and agreement with plan. Differential Diagnosis: Included but not limited to hypertension, hypertensive urgency, hypertensive emergency - Data Points Laboratory Results: Laboratory Results 11/24/17 17:53 11/24/17 17:53 18 11/24/17 17:53 17:53 WBC 8.15 10^3/uL 10^3/uL (3.80-9.50) RBC 3.84 10^6/uL L 10^6/uL (4.18-5.33) Hgb 12.3 g/dL L g/dL (12.6-16.3) Hct 35.7 % L % (38.0-47.0) MCV 93.0 fL fL (81.5-99.8) MCH 32.0 pg pg (27.9-34.1) MCHC 34.5 g/dL g/dL (32.4-36.7) RDW 13.8 % % (11.5-15.2) Plt Count 424 10^3/uL H 10^3/uL (150-400) MPV 8.0 fL L fL (8.7-11.7) Neut % (Auto) 60.0 % % (39.3-74.2) Lymph % (Auto) 27.1 % % (15.0-45.0) [place] % (Auto) 8.8 % % (4.5-13.0) Eos % (Auto) 2.6 % % (0.6-7.6) Baso % (Auto) 1.1 % % (0.3-1.7) Nucleat RBC Rel Count 0.0 % % (0.0-0.2) Absolute Neuts (auto) 4.89 10^3/uL 10^3/uL (1.70-6.50) Absolute Lymphs (auto) 2.21 10^3/uL 10^3/uL (1.00-3.00) Absolute Monos (auto) 0.72 10^3/uL 10^3/uL (0.30-0.80) Absolute Eos (auto) 0.21 10^3/uL 10^3/uL (0.03-0.40) Absolute Basos (auto) 0.09 10^3/uL 10^3/uL (0.02-0.10) Absolute Nucleated RBC 0.00 10^3/uL 10^3/uL (0-0.01) Immature Gran % 0.4 % % (0.0-1.1) Immature Gran # 0.03 10^3/uL 10^3/uL (0.00-0.10) Sodium 130 mEq/L L mEq/L (135-145) Potassium 4.3 mEq/L mEq/L (3.5-5.2) Chloride 93 mEq/L L mEq/L (97-110) Carbon Dioxide 24 mEq/l mEq/l (22-31) Anion Gap 13 mEq/L mEq/L (8-16) BUN 11 mg/dL mg/dL (7-23) Creatinine 0.6 mg/dL mg/dL (0.6-1.0) Estimated GFR > 60 Glucose 98 mg/dL mg/dL (70-100) Calcium 9.8 mg/dL mg/dL (8.5-10.4) Troponin I < 0.012 ng/mL ng/mL (0.000-0.034) Medications Given: Discontinued Medications Lisinopril (Zestril) 10 mg PO EDNOW ONE Stop: 11/24/17 18:30 Last Admin: 11/24/17 19:00 Dose: 10 mg Departure - Departure Disposition: Home, Routine, Self-Care Clinical Impression: Hypertension Qualifiers: Hypertension type: unspecified Qualified Code(s): I10 - Essential (primary) hypertension Condition: Good Instructions: Hypertension (ED) Additional Instructions: Follow up with your primary care doctor tomorrow for recheck If symptoms worsen or new symptoms develop return to the emergency room for recheck Referrals: Bruna Mercado MD [Primary Care Provider] - As per Instructions Prescriptions: Lisinopril 10 mg PO DAILY #14 tablet
[2017-11-24 18:07] LABS: PLATELET COUNT 424 10^3/uL (150-400)
[2017-11-24] MEDS ORDERED: LISINOPRIL 20 MG TAB PO ONE (18:29)
[2017-11-24 19:38] VITALS: BP 186/111; PULSE 75; RESP 16; TEMP 97.9; O2SAT 96
== END 2017-11-24 19:39 | disposition home or self-care (01) ==
DX: I10 Essential (primary) hypertension (principal); J45.909 Unspecified asthma, uncomplicated; Z87.891 Personal history of nicotine dependence; Z79.82 Long term (current) use of aspirin

== ENCOUNTER → 2017-12-24 | Outpatient (CLI) | payer OTHER | LOC: BMCIMAGING 16:23 | PROVIDERS: ATTEND Family Medicine Geriatric Medicine | DX: J98.11 Atelectasis (principal); J84.10 Pulmonary fibrosis, unspecified ==

== ENCOUNTER → 2018-01-07 | Outpatient (CLI) | payer OTHER | LOC: FIMAGING 14:03 | PROVIDERS: ATTEND Family Medicine Geriatric Medicine | DX: Z12.31 Encounter for screening mammogram for malignant neoplasm of breast (principal) ==

== ENCOUNTER 2018-07-04 15:04 | Observation (INO) | payer OTHER ==
--- NOTE | 2018-07-04 15:24 | EDPHY ---
H & P Time Seen by Provider: 07/04/18 15:23 HPI/ROS: CHIEF COMPLAINT: Cough and shortness of breath HISTORY OF PRESENT ILLNESS: Patient got sick on Friday with a cough. Increasing shortness of breath since then. Worse with walking or exertion but not positional. Associated with cough and yellow sputum but no fever or chills. No leg swelling. Symptoms moderate today. REVIEW OF SYSTEMS: Eye: no change in vision ENT: Recent congestion with seasonal allergies. Cardiac: no chest pain or syncope Pulmonary: HPI Abdomen: no vomiting, diarrhea, abdominal pain Musculoskeletal: No leg swelling Skin: no rash Neuro: no headache Constitutional: no fever : no urinary symptoms A comprehensive 10 point review of systems is otherwise negative aside from elements mentioned in the history of present illness. PAST MEDICAL HISTORY: Includes hypothyroid, high cholesterol, global amnesia, cataract surgery, hysterectomy, right elbow surgery. Asthma, still uses Spiriva Social history: Nonsmoker General Appearance: Alert and conversant, cooperative. Eyes: No scleral icterus. ENT, Mouth: Normal mucous membranes. Respiratory: Speaks in full sentences but mildly tachypneic. Bilateral expiratory wheezes with prolonged expiratory phase but symmetric breath sounds. Cardiovascular: Regular rate and rhythm. Gastrointestinal: Abdomen is soft and non tender. Neurological: Alert, face symmetric, normal motor and sensory in extremities. Skin: Warm and dry, no rashes. Musculoskeletal: No peripheral edema. Psychiatric: Not agitated. Emergency Department course/MDM: Presents with clinical evidence of reactive airway disease. Albuterol and Atrovent, steroids discussed and consented. Chest x-ray and labs. EKG. Low suspicion for PE or ACS. 1616: Chest x-ray reviewed with Dr. Fox shows bronchitis pattern but no definite infiltrate. Results discussed with the patient at this time, plan to treat for asthma. 1724: Discussed with [place]; hypoxic at 89% on RA, admit for oxygen and nebs and steroids. Smoking Status: Former smoker Constitutional: Initial Vital Signs Temperature (C) 37.3 C 07/04/18 15:08 Heart Rate 92 07/04/18 15:08 Respiratory Rate 18 07/04/18 15:08 Blood Pressure 173/103 H 07/04/18 15:08 O2 Sat (%) 90 L 07/04/18 15:08 O2 Delivery Mode Room Air Allergies/Adverse Reactions: tramadol Allergy (Unknown, Verified 11/24/17 15:58) Other-Enter Comments Home Medications: Medication Instructions Recorded Albuterol [Proventil Inhaler HFA 1 - 2 puffs IH DAILY PRN 01/06/17 (*)] Aspirin [Aspirin 325 mg (*)] 325 mg PO DAILY 11/13/17 Escitalopram Oxalate [Lexapro 10 10 mg PO DAILY 11/13/17 MG] Levothyroxine [Synthroid 100 mcg 100 mcg PO DAILY06 11/13/17 (*)] Omeprazole [Prilosec 20 mg] 20 mg PO DAILY 11/13/17 Rosuvastatin Calcium [Crestor] 10 mg PO DAILY 11/13/17 Lisinopril 10 mg PO DAILY #14 tablet 11/24/17 Medical Decision Making - Diagnostics EKG Interpretation: 12-lead EKG interpreted by me; official reading is in computer system. My interpretation is sinus rhythm rate 84, normal intervals, no ischemic changes. Imaging Results: Imaging Impressions Chest X-Ray 07/04/18 15:35 Impression: 1. Moderate perihilar bronchitis, with no convincing evidence of an acute infiltrate. 2. [id number] retrocardiac hiatal hernia. 3. Sequela of old granulomatous disease. 4. Old moderate T7 compression fracture, and a left clavicular fracture contour deformity. Findings were discussed with ESE CANTRELL MD at 16:15, on 07/04/2018. - Data Points Laboratory Results: Laboratory Results 07/04/18 15:00 07/04/18 15:00 07/04/18 07/04/18 15:00 15:00 WBC 12.25 10^3/uL H 10^3/uL (3.80-9.50) RBC 4.76 10^6/uL 10^6/uL (4.18-5.33) Hgb 15.4 g/dL g/dL (12.6-16.3) Hct 43.8 % % (38.0-47.0) MCV 92.0 fL fL (81.5-99.8) MCH 32.4 pg pg (27.9-34.1) MCHC 35.2 g/dL g/dL (32.4-36.7) RDW 13.5 % % (11.5-15.2) Plt Count 335 10^3/uL 10^3/uL (150-400) MPV 8.5 fL L fL (8.7-11.7) Neut % (Auto) 68.9 % % (39.3-74.2) Lymph % (Auto) 17.1 % % (15.0-45.0) [place] % (Auto) 10.0 % % (4.5-13.0) Eos % (Auto) 3.3 % % (0.6-7.6) Baso % (Auto) 0.5 % % (0.3-1.7) Nucleat RBC Rel Count 0.0 % % (0.0-0.2) Absolute Neuts (auto) 8.44 10^3/uL H 10^3/uL (1.70-6.50) Absolute Lymphs (auto) 2.09 10^3/uL 10^3/uL (1.00-3.00) Absolute Monos (auto) 1.23 10^3/uL H 10^3/uL (0.30-0.80) Absolute Eos (auto) 0.40 10^3/uL 10^3/uL (0.03-0.40) Absolute Basos (auto) 0.06 10^3/uL 10^3/uL (0.02-0.10) Absolute Nucleated RBC 0.00 10^3/uL 10^3/uL (0-0.01) Immature Gran % 0.2 % % (0.0-1.1) Immature Gran # 0.03 10^3/uL 10^3/uL (0.00-0.10) Sodium 132 mEq/L L mEq/L (135-145) Potassium 4.2 mEq/L mEq/L (3.3-5.0) Chloride 97 mEq/L mEq/L (97-110) Carbon Dioxide 22 mEq/l mEq/l (22-31) Anion Gap 13 mEq/L mEq/L (8-16) BUN 18 mg/dL mg/dL (7-23) Creatinine 0.5 mg/dL L mg/dL (0.6-1.0) Estimated GFR > 60 Glucose 119 mg/dL H mg/dL (70-100) Calcium 9.9 mg/dL mg/dL (8.5-10.4) Troponin I < 0.012 ng/mL ng/mL (0.000-0.034) Medications Given: Discontinued Medications Albuterol (Proventil Neb) 3 ml IH EDNOW ONE Stop: 07/04/18 15:36 Last Admin: 07/04/18 16:05 Dose: 3 ml Albuterol (Proventil Neb) 3 ml IH EDNOW ONE Stop: 07/04/18 16:22 Last Admin: 07/04/18 16:53 Dose: 3 ml Albuterol/Ipratropium (Duoneb) 3 ml IH EDNOW ONE Stop: 07/04/18 15:36 Last Admin: 07/04/18 16:05 Dose: 3 ml Methylprednisolone Sodium Succinate (Solu-Medrol) 125 mg IVP EDNOW ONE Stop: 07/04/18 15:36 Last Admin: 07/04/18 16:05 Dose: 125 mg Departure - Departure Disposition: [facility] Inpatient Acute Clinical Impression: Acute bronchitis Qualifiers: Bronchitis organism: unspecified organism Qualified Code(s): J20.9 - Acute bronchitis, unspecified Asthma exacerbation Qualifiers: Asthma severity: moderate Asthma persistence: unspecified Qualified Code(s): J45.901 - Unspecified asthma with (acute) exacerbation Condition: Good Referrals: Bruna Mercado MD [Primary Care Provider] - As per Instructions
[2018-07-04] MEDS ORDERED: ALBUTEROL 3 ML DEYVIAL IH ONE ×2 (15:35→16:21)
[2018-07-04] MEDS ORDERED: IPRATROPIUM/ALBUTEROL 3 ML DEYVIAL IH ONE (15:35)
[2018-07-04] MEDS ORDERED: methylPREDNISolone SOD SUCC 125 MG/2 ML VIAL IVP ONE (15:35)
[2018-07-04 15:54] LABS: PLATELET COUNT 335 10^3/uL (150-400)
--- NOTE | 2018-07-04 16:11 | CPEKG ---
Test Reason : OPEN Blood Pressure : / mmHG Vent. Rate : 084 BPM Atrial Rate : 085 BPM P-R Int : 143 ms QRS Dur : 068 ms QT Int : 374 ms P-R-T Axes : 082 062 053 degrees QTc Int : 443 ms Sinus rhythm Confirmed by Jovanni Tong ([id number]) on 07/04/2018 4:10:43 PM Referred By: Confirmed By:Jovanni Tong
[2018-07-04] MEDS ORDERED: ONDANSETRON DISINTEGRATING 4 MG TAB PO PRN (17:52)
[2018-07-04] MEDS ORDERED: ONDANSETRON 4 MG/2 ML VIAL IVP PRN (17:52)
[2018-07-04] MEDS ORDERED: ALBUTEROL 3 ML DEYVIAL IH PRN (17:52)
--- NOTE | 2018-07-04 18:19 | PDGENHP ---
History and Physical - Chief Complaint shortness of breath - History of Present Illness 73yo F with h/o reactive airways disease who presents with gradual worsening of shortness of breath over few days. Reports she's had a sensation of being short of breath along with a chronic cough since a fall in October of this year, however, she was having more trouble catching her breath yesterday and today than usual so she came to ED. She attributes this to the smoke in the air. Also reports mild worsening of cough with some yellow sputum that started earlier this week. No fevers, chills, sick contacts, sore throat, runny nose. No pleuritic pain. No leg swelling or chest pain. In the ED, she was found to be wheezy with O2 sat <88% (although not documented) . She received nebs and steroids but O2 sat still not >88% so admitted for observation. Case discussed with ED provider Dr Jovanni Tong. Prior records reviewed, including obs admission from 10/2017. History Information - Allergies/Home Medication List Allergies/Adverse Reactions: tramadol Allergy (Unknown, Verified 11/24/17 15:58) Other-Enter Comments Home Medications: Albuterol [Proventil Inhaler HFA (*)] 1 - 2 puffs IH Q4 PRN 01/06/17 [Last Taken 07/04/18] Aspirin [Aspirin 325 mg (*)] 325 mg PO DAILY 11/13/17 [Last Taken 11/12/17] Levothyroxine [Synthroid 100 mcg (*)] 100 mcg PO DAILY06 11/13/17 [Last Taken ] Omeprazole [Prilosec 20 mg] 20 mg PO DAILY 11/13/17 [Last Taken 07/04/18] Rosuvastatin Calcium [Crestor] 10 mg PO DAILY 11/13/17 [Last Taken 07/04/18] Calcium Carbonate [[place]yster [place] Calcium 500 mg (*)] 1,000 mg PO DAILY 07/04/18 [ Last Taken 07/04/18] Cholecalciferol Vit D3 [Vitamin D3 2000 units tab (OTC)] 5,000 units PO DAILY [Last Taken 07/04/18] Escitalopram Oxalate [Lexapro] 10 mg PO DAILY 07/04/18 [Last Taken 07/04/18] Herbals/Supplements -Info Only 1 ea PO DAILY 07/04/18 [Last Taken Unknown] Melatonin [Melatonin 3 MG (*)] 3 mg PO HS 07/04/18 [Last Taken 07/03/18] Metoprolol Succinate Xr [Toprol Xl 25 mg (*)] 25 mg PO DAILY 07/04/18 [Last Taken 07/04/18] Multivitamins [Multivitamin (*)] 1 each PO DAILY 07/04/18 [Last Taken 07/04/18] [place]-3 Fatty Acids [Fish Oil 1000 mg (*)] 1,000 mg PO DAILY 07/04/18 [Last Taken 07/04/18] Tiotropium Inhaler [Spiriva Inhaler] 18 mcg IH DAILY 07/04/18 [Last Taken ] I have personally reviewed and updated: family history, medical history, social history, surgical history - Past Medical History Additional medical history: hypothyroidism, reactive airways disease, GERD, HLD , small subarachnoid hemorrhage after fall (10/2017) without need for surgical intervention, transient global amnesia - Surgical History Additional surgical history: hysterectomy - Family History Additional family history: no known PE/DVT - Social History Smoking Status: Former smoker (quit 35 years ago) Alcohol Use: None Drug Use: None Additional social history: works in the [employer] Review of Systems Review of Systems: ROS: 10pt was reviewed & negative except for what was stated in HPI & below Physical Exam Physical Exam: Temp Pulse Resp BP Pulse Ox 37.3 C 91 18 148/85 H 97 07/04/18 15:08 07/04/18 17:52 07/04/18 17:52 07/04/18 17:52 07/04/18 17:53 O2 (L/minute) 2 Constitutional: no apparent distress, appears nourished, not in pain Eyes: PERRL, anicteric sclera, EOMI Ears, Nose, Mouth, Throat: moist mucous membranes, hearing normal, ears appear normal, no oral mucosal ulcers Cardiovascular: no murmur, rub, or gallop, tachycardia, No JVD, No edema Respiratory: no respiratory distress, no rales or rhonchi, clear to auscultation Gastrointestinal: normoactive bowel sounds, soft, non-tender abdomen, no palpable masses Skin: warm, normal color, no rashes or abrasions, no fluctuance, no induration, No mottled Musculoskeletal: full muscle strength, no muscle tenderness, normal joint ROM, no joint effusions Neurologic: AAOx3, CN II-XII Intact, No weakness Psychiatric: interacting appropriately, not anxious, not encephalopathic, thought process linear Lab Data & Imaging Review 07/04/18 15:00 07/04/18 15:00 WBC 12.25 10^3/uL (3.80-9.50) H 07/04/18 15:00 RBC 4.76 10^6/uL (4.18-5.33) 07/04/18 15:00 Hgb 15.4 g/dL (12.6-16.3) 07/04/18 15:00 Hct 43.8 % (38.0-47.0) 07/04/18 15:00 MCV 92.0 fL (81.5-99.8) 07/04/18 15:00 MCH 32.4 pg (27.9-34.1) 07/04/18 15:00 MCHC 35.2 g/dL (32.4-36.7) 07/04/18 15:00 RDW 13.5 % (11.5-15.2) 07/04/18 15:00 Plt Count 335 10^3/uL (150-400) 07/04/18 15:00 MPV 8.5 fL (8.7-11.7) L 07/04/18 15:00 Neut % (Auto) 68.9 % (39.3-74.2) 07/04/18 15:00 Lymph % (Auto) 17.1 % (15.0-45.0) 07/04/18 15:00 [place] % (Auto) 10.0 % (4.5-13.0) 07/04/18 15:00 Eos % (Auto) 3.3 % (0.6-7.6) 07/04/18 15:00 Baso % (Auto) 0.5 % (0.3-1.7) 07/04/18 15:00 Nucleat RBC Rel Count 0.0 % (0.0-0.2) 07/04/18 15:00 Absolute Neuts (auto) 8.44 10^3/uL (1.70-6.50) H 07/04/18 15:00 Absolute Lymphs (auto) 2.09 10^3/uL (1.00-3.00) 07/04/18 15:00 Absolute Monos (auto) 1.23 10^3/uL (0.30-0.80) H 07/04/18 15:00 Absolute Eos (auto) 0.40 10^3/uL (0.03-0.40) 07/04/18 15:00 Absolute Basos (auto) 0.06 10^3/uL (0.02-0.10) 07/04/18 15:00 Absolute Nucleated RBC 0.00 10^3/uL (0-0.01) 07/04/18 15:00 Immature Gran % 0.2 % (0.0-1.1) 07/04/18 15:00 Immature Gran # 0.03 10^3/uL (0.00-0.10) 07/04/18 15:00 Sodium 132 mEq/L (135-145) L 07/04/18 15:00 Potassium 4.2 mEq/L (3.3-5.0) 07/04/18 15:00 Chloride 97 mEq/L (97-110) 07/04/18 15:00 Carbon Dioxide 22 mEq/l (22-31) 07/04/18 15:00 Anion Gap 13 mEq/L (8-16) 07/04/18 15:00 BUN 18 mg/dL (7-23) 07/04/18 15:00 Creatinine 0.5 mg/dL (0.6-1.0) L 07/04/18 15:00 Estimated GFR > 60 07/04/18 15:00 Glucose 119 mg/dL (70-100) H 07/04/18 15:00 Calcium 9.9 mg/dL (8.5-10.4) 07/04/18 15:00 Troponin I < 0.012 ng/mL (0.000-0.034) 07/04/18 15:00 Visualized and Interpreted Chest x-ray results: Yes Visualized and Interpreted imaging results: Yes Interpretation: CXR: no infiltrate, peribronchial cuffing in perihilar area c/w bronchitis, old granulomas, clear costophrenic angles, hiatal hernia ( interpreted by me) Visualized and Interpreted EKG results: Yes EKG additional interpertation: ECG: NSR, no ischemia, no right heart strain ( interpreted by me) Assessment & Plan Assessment: 73yo F with h/o reactive airways disease who presents with few days of worsening dyspnea and cough being admitted for bronchitis and hypoxia. Plan: #Acute bronchitis leading to exacerbation of reactive airways disease: Likely triggered by smoke vs viral; won't check RVP at this time as won't exchange clerk. CXR without infiltrate. Schedule duonebs, start prednisone, albuterol PRN. #Acute hypoxemia: Related to above. Supplemental O2 to keep sat>90%. #Leukocytosis: Due to above. Not septic. Monitor. #Hyponatremia: Mild and suspect appears a bit dry. Will start IVF and recheck in AM. #HTN: BP mildly elevated on admit. Continue home meds for now. #Hypothyroid: Continue home LT4. #GERD: On PPI. #Depression: On escitalopram. Diet: regular VTE ppx: LMWH Code: DNR Dispo: Admit under observation for management of above. Likely discharge tomorrow AM, possibly with supplemental O2.
[2018-07-04] MEDS ORDERED: NS 1,000 ML IV SCH (18:45)
[2018-07-04] MEDS: ACETAMINOPHEN 325 MG TAB PO PRN (19:15)
[2018-07-04] MEDS ORDERED: MELATONIN 3 MG TAB PO SCH (21:00)
[2018-07-04] MEDS: IPRATROPIUM/ALBUTEROL 3 ML DEYVIAL IH SCH (21:57)
[2018-07-05] MEDS: ACETAMINOPHEN 325 MG TAB PO PRN ×2 (04:17→11:38)
[2018-07-05 05:20] LABS: PLATELET COUNT 330 10^3/uL (150-400)
[2018-07-05] MEDS ORDERED: LEVOTHYROXINE 100 MCG TAB PO SCH (06:00)
[2018-07-05] MEDS: IPRATROPIUM/ALBUTEROL 3 ML DEYVIAL IH SCH ×2 (06:05→12:01)
[2018-07-05] MEDS ORDERED: ESCITALOPRAM OXALATE 10 MG TAB PO SCH (09:00)
[2018-07-05] MEDS ORDERED: CALCIUM CARBONATE 500 MG TAB PO SCH (09:00)
[2018-07-05] MEDS ORDERED: ENOXAPARIN 40 MG/0.4 ML SYR SC SCH (09:00)
[2018-07-05] MEDS ORDERED: METOPROLOL SUCCINATE XR 25 MG TAB PO SCH (09:00)
[2018-07-05] MEDS ORDERED: PANTOPRAZOLE SODIUM 40 MG TAB PO SCH (09:00)
[2018-07-05] MEDS ORDERED: ROSUVASTATIN CALCIUM 10 MG TAB PO SCH (09:00)
[2018-07-05] MEDS ORDERED: ASPIRIN 325 MG TAB PO SCH (09:00)
[2018-07-05] MEDS ORDERED: predniSONE 20 MG TAB PO SCH (09:00)
[2018-07-05] MEDS ORDERED: CHOLECALCIFEROL VIT D3 2,000 UNITS TAB/CAP PO SCH (09:00)
--- NOTE | 2018-07-05 09:06 | PDHOMEO2F ---
Home Oxygen Face to Face Home Orders: I certify that a physician or a nurse practitioner or physician's assistant teacher primary has had a [id number] encounter with this patient on the date of this order due to the diagnosis listed, which relates to the primary reason the patient requires home oxygen. Alternative treatments have been tried, or considered, and deemed ineffective. It is anticipated that supplemental oxygen will result in improvement with treatment. Home oxygen qualifying diagnosis: COPD SpO2 on room air (%): 87 Frequency of home oxygen needed: continuous Home oxygen liters per minute: 2 Home oxygen delivery device: nasal cannula Concentrator: Yes E-tanks for mobility and back up: Yes If ordering portable O2, is the patient mobile in the home?: Yes I certify that, based on these findings, the home oxygen is medically necessary for this patient for the following length of time. Length of time home oxygen needed: 99 years
[2018-07-05 12:53] VITALS: BP 150/89
--- NOTE | 2018-07-05 14:46 | GDS ---
DISCHARGE DIAGNOSES: 1. Acute hypoxemic respiratory failure. 2. Acute bronchitis. 3. Chronic obstructive pulmonary disease exacerbation. 4. Leukocytosis. 5. Hyponatremia. 6. Hypertension. 7. Hypothyroidism. PHYSICAL EXAM: GENERAL: The patient is alert. VITAL SIGNS: Afebrile at 36.9, pulse is 87, respira tory rate 16, blood pressure is 137/91. She is saturating 87% on room air, greater than 90% on 2 L. I have seen and evaluated the patient on the day of discharge. HOSPITAL COURSE: Patient is a 73-year-old female who presented to the emergency room with complaints of shortness of breath. She was evaluated and diagnosed with: 1. Acute bronchitis. This is likely viral in nature and should resolve independently, and respond w ell to treatment. 2. COPD exacerbation. The patient has been initiated on steroid therapy, as well as breathing treat ments and albuterol. She will be discharged with prednisone to follow up in the outpatient setting w ith her primary care physician. 3. Acute hypoxemic respiratory failure. The patient has been prescribed outpatient oxygen therapy, secondary to a saturation of 87% on room air. She will follow with her primary care physician regard ing this oxygen supplementation. 4. Leukocytosis in the setting of acute infectious response. 5. Hyponatremia, likely close to the patient's baseline. 6. Hypertension. This is stable. DISPOSITION: The patient will be discharged home independently with supplemental oxygen. PENDING STUDIES: There are no pending studies. DISCHARGE MEDICATIONS: Please refer to EMR form. I have provided the patient a prescription for pre dnisone 40 mg daily for a total of 4 days. I have not discontinued any of her other previously presc ribed home medications to the best of my knowledge. FOLLOWUP: Followup will be with her primary care physician, Dr. Bruna Mercado, on , 07/09/2018 . /[id number]/MODL
== END 2018-07-05 13:58 | disposition home or self-care (01) ==
LOC: F3E 18:46
PROVIDERS: ADMIT Internal Medicine; ATTEND Internal Medicine
DX: J96.01 Acute respiratory failure with hypoxia (principal); J20.9 Acute bronchitis, unspecified; J44.0 Chronic obstructive pulmonary disease with (acute) lower respiratory infection; J44.1 Chronic obstructive pulmonary disease with (acute) exacerbation; E87.1 Hypo-osmolality and hyponatremia; E03.9 Hypothyroidism, unspecified; Z87.891 Personal history of nicotine dependence; K21.9 Gastro-esophageal reflux disease without esophagitis; Z91.81 History of falling
CPT/HCPCS: 71046; 93005; 96374; 99285; G0378; J2930; J7512; J7613; J1650

== ENCOUNTER 2018-07-30 19:49 | Inpatient (IN) | payer OTHER ==
[2018-07-30] MEDS ORDERED: NS 500 ML IV ONE (20:03)
[2018-07-30] MEDS ORDERED: methylPREDNISolone SOD SUCC 125 MG/2 ML VIAL IVP ONE (20:03)
[2018-07-30] MEDS ORDERED: IPRATROPIUM/ALBUTEROL 3 ML DEYVIAL IH ONE ×2 (20:03→21:00)
--- NOTE | 2018-07-30 20:59 | EDPHY ---
H & P Time Seen by Provider: 07/30/18 20:01 HPI/ROS: HPI Cough, COPD exacerbation. 73-year-old female by private vehicle with her . This patient has a history of COPD. Was seen in the emergency department with complaint of cough and difficulty breathing on July 04. She was treated with nebulizers and discharged with a short course of steroids. No antibiotics. She reports that she has had continued cough since then. She reports that about a week ago she started having more back pain after she had a coughing fit at night. She describes this is mid back pain. She has had no loss of sensation or weakness in her extremities. No bowel or bladder incontinence. She reports a worsening cough since this morning. She reports more shortness of breath and difficulty breathing since early this afternoon. No fever. ROS: Constitutional: No fever, no chills. No weakness. Eyes: No discharge. No changes in vision. ENT: No sore throat. No nasal congestion or rhinorrhea. Respiratory: As above. Cardiac: No chest pain, no palpitations. Gastrointestinal: No abdominal pain, no vomiting, no diarrhea. Genitourinary: No hematuria. No dysuria or increased frequency with urination. Musculoskeletal: As above. No neck pain. No myalgias or arthralgias. Skin: No rashes. Neurological: No headache. No focal weakness or altered sensation. Past medical history: Hypothyroid, hyperlipidemia, transient global amnesia, cataract surgery, hysterectomy, COPD she is on albuterol and Spiriva for this, she is also on oxygen at 2 L by nasal cannula at home. Social history: Former smoker. She is here with her . No alcohol. Physical Exam: General Appearance: Alert, she is not in distress. Intermittent wet sounding cough. This patient is responding to questions appropriately and in full sentences. This patient appears well-hydrated and well-nourished. Eyes: Pupils equal and round no pallor or injection. No lid edema, erythema or injection. ENT, Mouth: Mucous membranes are moist. The pharyngeal tissues are unremarkable. No edema or swelling. No asymmetry suggestive of abscess. No erythema or exudates. Respiratory: There are no retractions, lung sounds are diminished bilaterally with an intermittent wet cough. No tachypnea. Cardiovascular: Regular rate and rhythm. Borderline tachycardia. No murmur appreciated. Gastrointestinal: Abdomen is soft and nontender, no masses, bowel sounds normal. No focal tenderness at McBurney's point. No Guzman sign. Neurological: Motor sensory function is grossly intact. Cranial nerves are normal. Gait is normal. Skin: Warm and dry, no rashes. Musculoskeletal: Neck is supple and nontender. Extremities are symmetrical. All joints range without pain or impingement. Psychiatric: No agitation. No depression. Database: EKG: EKG time is 9:31 p.m.; EKG shows a narrow complex normal sinus tachycardia with a ventricular rate of 126. The WA, QRS, QT intervals are within normal limits. There are no ST-T wave changes indicative of ischemic or injury pattern. No evidence of right heart strain. Interpreted by me. Imaging: Chest x-ray PA and lateral; the cardiac mediastinal silhouette is unremarkable. She has a new moderate compression fracture at T6. She had a moderate to severe compression fracture at T7 on July 04, this compression fracture at T7 is now severe. No evidence of infiltrate or pneumothorax. No acute cardiopulmonary disease process noted. Discussed with staff radiologist Dr. Aidan Hassan. Procedures: Emergency department course: Triage vital signs reviewed. She is borderline tachycardic. She is hypertensive. Room air pulse oximetry is 89-90%. On 2 L of nasal cannula oxygen she comes up into the mid to high 90s. An IV was placed. She was placed on a radiographer cardiac catheterization. She was initially given 2 albuterol/Atrovent nebulizer treatments [id number] and 125 mg of IV Solu-Medrol. 8:30 p.m., patient re-evaluated. She is tachycardic in the low 120s. This is likely secondary to beta agonist therapy. She could be a bit dehydrated as well. She will be given 250 cc to 500 cc of IV normal saline. 9:10 p.m., the patient was re-evaluated, lung sounds are still diminished. There has been no change in her neurologic status. Her pulse oximetry is in the high 90s on 2 L of nasal cannula oxygen. Results of her chest x-ray and diagnosis of new thoracic vertebra compression fractures discussed with her. Her bed was laid flat to 10 degrees with a pillow at her head secondary to the compression fractures. She will be given another albuterol/Atrovent nebulizer treatment and 2 g of IV magnesium. EKG and standard blood work obtained. I spoke with the on-call hospitalist Dr. Guzmán. He accepts this patient for admission. Spine/neuro surge versus IR consult for evaluation of compression fractures deferred to hospitalist. Results of blood work pending at the time of admission to the floor. Blood work results will be followed up on by the hospitalist service. Patient's remaining emergency department course under my care uneventful. She was admitted in stable condition [facility] with telemetry. Differential Diagnosis: The differential diagnosis on this patient includes but is not limited to COPD exacerbation, bronchitis, acute thoracic vertebral compression fractures. Pneumonia unlikely. This represents a partial list of diagnoses considered. These considerations are based on history, physical exam, past history, reassessment and diagnostic testing. Smoking Status: Former smoker Constitutional: Initial Vital Signs Temperature (C) 36.8 C 07/30/18 19:52 Heart Rate 102 H 07/30/18 19:52 Respiratory Rate 20 07/30/18 19:52 Blood Pressure 182/108 H 07/30/18 19:52 O2 Sat (%) 90 L 07/30/18 19:52 O2 Delivery Mode Nasal Cannula,Humidified O2 (L/minute) 1 Allergies/Adverse Reactions: tramadol Allergy (Unknown, Verified 07/30/18 21:23) Other-Enter Comments Home Medications: Medication Instructions Recorded Albuterol [Proventil Inhaler HFA 1 - 2 puffs IH Q4 PRN 01/06/17 (*)] Levothyroxine [Synthroid 100 mcg 100 mcg PO DAILY06 11/13/17 (*)] Rosuvastatin Calcium [Crestor] 10 mg PO DAILY 11/13/17 Cholecalciferol Vit D3 [Vitamin D3 5,000 units PO DAILY 07/04/18 2000 units tab (OTC)] Escitalopram Oxalate [Lexapro 10 10 mg PO DAILY 07/04/18 MG] Metoprolol Succinate Xr [Toprol Xl 25 mg PO DAILY 07/04/18 25 mg (*)] Multivitamins [Multivitamin (*)] 1 each PO DAILY 07/04/18 [place]-3 Fatty Acids [Fish Oil 1000 1,000 mg PO DAILY 07/04/18 mg (*)] Tiotropium Inhaler [Spiriva 18 mcg IH DAILY 07/04/18 Inhaler (RX)] Acetaminophen [Tylenol ES 500 mg 500 mg PO Q6 07/30/18 (*)] Montelukast Sodium [Singulair 10 10 mg PO HS 07/30/18 mg (*)] Medical Decision Making - Data Points Laboratory Results: Laboratory Results 07/31/18 05:00 07/31/18 09:40 07/31/18 07/31/18 09:40 05:00 Neut % (Auto) 67.5 % % (39.3-74.2) Lymph % (Auto) 29.5 % % (15.0-45.0) [place] % (Auto) 1.5 % L % (4.5-13.0) Eos % (Auto) 0.0 % L % (0.6-7.6) Baso % (Auto) 0.2 % L % (0.3-1.7) Nucleat RBC Rel Count 0.0 % % (0.0-0.2) Absolute Neuts (auto) 9.66 10^3/uL H 10^3/uL (1.70-6.50) Absolute Lymphs (auto) 4.22 10^3/uL H 10^3/uL (1.00-3.00) Absolute Monos (auto) 0.21 10^3/uL L 10^3/uL (0.30-0.80) Absolute Eos (auto) 0.00 10^3/uL L 10^3/uL (0.03-0.40) Absolute Basos (auto) 0.03 10^3/uL 10^3/uL (0.02-0.10) Absolute Nucleated RBC 0.00 10^3/uL 10^3/uL (0-0.01) Immature Gran % 1.3 % H % (0.0-1.1) Immature Gran # 0.19 10^3/uL H 10^3/uL (0.00-0.10) RBC/WBC/PLT Morphology TNP Smudge Cells 1+ H Platelet Estimate INCREASED H (ADEQ) Sodium 121 mEq/L L mEq/L (135-145) Potassium 4.5 mEq/L mEq/L (3.3-5.0) Chloride 81 mEq/L L mEq/L (97-110) Carbon Dioxide 27 mEq/l mEq/l (22-31) Anion Gap 13 mEq/L mEq/L (6-14) BUN 8 mg/dL mg/dL (7-23) Creatinine 0.4 mg/dL L mg/dL (0.6-1.0) Estimated GFR > 60 Glucose 184 mg/dL H mg/dL (70-100) Calcium 9.7 mg/dL mg/dL (8.5-10.4) Medications Given: Acetaminophen (Tylenol) 650 mg PO Q4HRS PRN PRN Reason: Pain, Mild/Fever, Can Take PO Stop: 01/26/19 22:12 Last Admin: 07/31/18 17:18 Dose: 650 mg Albuterol (Proventil Neb) 3 ml IH Q2HRS PRN PRN Reason: Short of Breath/Dyspnea Stop: 01/26/19 22:12 Last Admin: 07/30/18 23:28 Dose: 3 ml Albuterol/Ipratropium (Duoneb) 3 ml IH Q6HRS [place] Stop: 01/27/19 05:59 Last Admin: 07/31/18 15:00 Dose: 3 ml Cholecalciferol (Vitamin D) 5,000 units PO DAILY [place] Stop: 01/27/19 08:59 Last Admin: 07/31/18 08:26 Dose: 5,000 units Escitalopram Oxalate (Lexapro) 10 mg PO DAILY [place] Stop: 01/27/19 08:59 Last Admin: 07/31/18 08:25 Dose: 10 mg Guaifenesin/Dextromethorphan (Robitussin Dm Oral Liquid) 10 ml PO Q4HRS PRN PRN Reason: Cough, Moderate Stop: 01/27/19 05:37 Last Admin: 07/31/18 11:55 Dose: 10 ml Levothyroxine Sodium (Synthroid) 100 mcg PO DAILY06 [place] Stop: 01/27/19 05:59 Last Admin: 07/31/18 05:47 Dose: 100 mcg Metoprolol Succinate (Toprol Xl) 25 mg PO DAILY [place] Stop: 01/27/19 08:59 Last Admin: 07/31/18 08:26 Dose: 25 mg Multivitamins (Tab-A-Kady) 1 each PO DAILY [place] Stop: 01/27/19 08:59 Last Admin: 07/31/18 08:26 Dose: 1 each Wtkym-1-Iqod Ethyl Esters (Fish Oil) 1,000 mg PO DAILY [place] Stop: 01/27/19 08:59 Last Admin: 07/31/18 08:25 Dose: 1,000 mg Prednisone (Prednisone) 40 mg PO DAILY [place] Stop: 01/27/19 08:59 Last Admin: 07/31/18 08:27 Dose: 40 mg Rosuvastatin Calcium (Crestor) 10 mg PO DAILY [place] Stop: 01/27/19 08:59 Last Admin: 07/31/18 08:25 Dose: 10 mg Discontinued Medications Albuterol/Ipratropium (Duoneb) 6 ml IH EDNOW ONE Stop: 07/30/18 20:04 Last Admin: 07/30/18 20:29 Dose: 6 ml Albuterol/Ipratropium (Duoneb) 3 ml IH EDNOW ONE Stop: 07/30/18 21:01 Last Admin: 07/30/18 21:26 Dose: 3 ml Sodium Chloride (Ns) 500 mls @ 1,000 mls/hr IV EDNOW ONE PRN Reason: Protocol Stop: 07/30/18 20:32 Last Admin: 07/30/18 20:29 Dose: 500 mls Magnesium Sulfate (Magnesium Sulf 2 Gm (Premix)) 50 mls @ 50 mls/hr IV EDNOW ONE Stop: 07/30/18 21:59 Last Admin: 07/30/18 21:25 Dose: 50 mls Dextrose (D5w) 1,000 mls @ 200 mls/hr IV CONT [place] Stop: 01/27/19 00:59 Last Admin: 07/31/18 01:07 Dose: 1,000 mls Dextrose (D5w) 1,000 mls @ 50 mls/hr IV CONT [place] Stop: 01/27/19 06:29 Last Admin: 07/31/18 06:33 Dose: 1,000 mls Sodium Chloride (Ns) 1,000 mls @ 50 mls/hr IV CONT [place] Stop: 08/01/18 06:44 Last Admin: 07/31/18 11:10 Dose: 1,000 mls Methylprednisolone Sodium Succinate (Solu-Medrol) 125 mg IVP EDNOW ONE Stop: 07/30/18 20:04 Last Admin: 07/30/18 20:29 Dose: 125 mg Point of Care Test Results: Chemistry 07/30/18 21:11 POC Troponin I 0.00 ng/mL ng/mL (0.00-0.08) Departure - Departure Disposition: [facility] Inpatient Acute Clinical Impression: COPD exacerbation, Thoracic compression fracture Condition: Fair
[2018-07-30] MEDS ORDERED: MAGNESIUM SULF 2 GM/WATER 50 ML IV ONE (21:00)
[2018-07-30 21:18] LABS: PLATELET COUNT 456 10^3/uL (150-400)
--- NOTE | 2018-07-30 21:36 | CPEKG ---
Test Reason : OPEN Blood Pressure : / mmHG Vent. Rate : 126 BPM Atrial Rate : 126 BPM P-R Int : 142 ms QRS Dur : 077 ms QT Int : 315 ms P-R-T Axes : 079 041 014 degrees QTc Int : 457 ms Sinus tachycardia Confirmed by Catrina Tsai ([id number]) on 07/30/2018 9:35:37 PM Referred By: Confirmed By:Catrina Tsai
[2018-07-30] MEDS ORDERED: ONDANSETRON 4 MG/2 ML VIAL IVP PRN (22:13)
[2018-07-30] MEDS ORDERED: ONDANSETRON DISINTEGRATING 4 MG TAB PO PRN (22:13)
[2018-07-30] MEDS ORDERED: ALBUTEROL 3 ML DEYVIAL IH PRN (22:13)
--- NOTE | 2018-07-30 23:08 | PDGENHP ---
History and Physical - Chief Complaint SOB - History of Present Illness 73 yo F w/ COPD, HTN presents with shortness of breath. The patient was discharged from [facility] on 07/04 after treatment for COPD exacerbation, which was presumed to be triggered by viral bronchitis. She was discharged with 5 day course of prednisone and did well initially. Over the last 3-4 days, however, she tells me her dry cough was returned and she has developed progressive wheezing and shortness of breath. She denies any infectious symptoms such as fever, sore throat, runny nose, body aches. She has been compliant with her home Spiriva and albuterol PRN. Additionally, she has developed some thoracic back pain, which she thinks is related to a coughing fit. She describes this as mild to moderate. Case discussed with Dr. Guzmán, records reviewed in EMR including most recent DC summary by Teresita Scruggs dated 07/05/18. History Information - Allergies/Home Medication List Allergies/Adverse Reactions: tramadol Allergy (Unknown, Verified 07/30/18 21:23) Other-Enter Comments Home Medications: Albuterol [Proventil Inhaler HFA (*)] 1 - 2 puffs IH Q4 PRN 01/06/17 [Last Taken 07/30/18] Levothyroxine [Synthroid 100 mcg (*)] 100 mcg PO DAILY06 11/13/17 [Last Taken ] Rosuvastatin Calcium [Crestor] 10 mg PO DAILY 11/13/17 [Last Taken 07/04/18] Cholecalciferol Vit D3 [Vitamin D3 2000 units tab (OTC)] 5,000 units PO DAILY [Last Taken 07/04/18] Escitalopram Oxalate [Lexapro 10 MG] 10 mg PO DAILY 07/04/18 [Last Taken ] Metoprolol Succinate Xr [Toprol Xl 25 mg (*)] 25 mg PO DAILY 07/04/18 [Last Taken 07/04/18] Multivitamins [Multivitamin (*)] 1 each PO DAILY 07/04/18 [Last Taken 07/04/18] [place]-3 Fatty Acids [Fish Oil 1000 mg (*)] 1,000 mg PO DAILY 07/04/18 [Last Taken 07/04/18] Tiotropium Inhaler [Spiriva Inhaler (RX)] 18 mcg IH DAILY 07/04/18 [Last Taken 07/04/18] Acetaminophen [Tylenol ES 500 mg (*)] 500 mg PO Q6 07/30/18 [Last Taken 07/30/18 ] Montelukast Sodium [Singulair 10 mg (*)] 10 mg PO HS 07/30/18 [Last Taken Unknown] I have personally reviewed and updated: family history, medical history - Past Medical History Additional medical history: hypothyroidism, reactive airways disease, GERD, HLD , small subarachnoid hemorrhage after fall (10/2017) without need for surgical intervention, transient global amnesia - Surgical History Additional surgical history: hysterectomy - Family History Additional family history: no known PE/DVT - Social History Smoking Status: Former smoker Additional social history: works in the [employer] Review of Systems Review of Systems: ROS: 10pt was reviewed & negative except for what was stated in HPI & below Physical Exam Physical Exam: Temp Pulse Resp BP Pulse Ox 36.4 C 106 H 19 156/95 H 91 L 07/30/18 22:55 07/30/18 22:55 07/30/18 22:55 07/30/18 22:55 07/30/18 22:55 O2 (L/minute) 2 Constitutional: no apparent distress, not in pain Eyes: PERRL, EOMI Ears, Nose, Mouth, Throat: moist mucous membranes, no oral mucosal ulcers Cardiovascular: regular rate and rhythym, no murmur, rub, or gallop Respiratory: no respiratory distress, expiratory wheeze Gastrointestinal: normoactive bowel sounds, soft, non-tender abdomen Skin: warm, normal color Musculoskeletal: full muscle strength, no muscle tenderness Neurologic: AAOx3, CN II-XII Intact Psychiatric: interacting appropriately, not anxious Lab Data & Imaging Review 07/30/18 21:10 07/30/18 21:10 WBC 14.50 10^3/uL (3.80-9.50) H 07/30/18 21:10 RBC 3.81 10^6/uL (4.18-5.33) L 07/30/18 21:10 Hgb 12.3 g/dL (12.6-16.3) L 07/30/18 21:10 Hct 33.3 % (38.0-47.0) L 07/30/18 21:10 MCV 87.4 fL (81.5-99.8) 07/30/18 21:10 MCH 32.3 pg (27.9-34.1) 07/30/18 21:10 MCHC 36.9 g/dL (32.4-36.7) H 07/30/18 21:10 RDW 12.2 % (11.5-15.2) 07/30/18 21:10 Plt Count 456 10^3/uL (150-400) H 07/30/18 21:10 MPV 7.9 fL (8.7-11.7) L 07/30/18 21:10 Neut % (Auto) Not Reported 07/30/18 21:10 Lymph % (Auto) Not Reported 07/30/18 21:10 [place] % (Auto) Not Reported 07/30/18 21:10 Eos % (Auto) Not Reported 07/30/18 21:10 Baso % (Auto) Not Reported 07/30/18 21:10 Nucleat RBC Rel Count Not Reported 07/30/18 21:10 Absolute Neuts (auto) Not Reported 07/30/18 21:10 Absolute Lymphs (auto) Not Reported 07/30/18 21:10 Absolute Monos (auto) Not Reported 07/30/18 21:10 Absolute Eos (auto) Not Reported 07/30/18 21:10 Absolute Basos (auto) Not Reported 07/30/18 21:10 Absolute Nucleated RBC Not Reported 07/30/18 21:10 Immature Gran % Not Reported 07/30/18 21:10 Seg Neutrophils % 78.0 % 07/30/18 21:10 Band Neutrophils % 3.0 % 07/30/18 21:10 Lymphocytes % 12.0 % 07/30/18 21:10 Monocytes % 5.0 % 07/30/18 21:10 Eosinophils % 2.0 % 07/30/18 21:10 Basophils % 0.0 % 07/30/18 21:10 Metamyelocytes % 0.0 % 07/30/18 21:10 Myelocytes % 0.0 % 07/30/18 21:10 Promyelocytes % 0.0 % 07/30/18 21:10 Blast Cells % 0.0 % 07/30/18 21:10 Immature Gran # Not Reported 07/30/18 21:10 Absolute Seg Neuts 11.31 10^/uL (1.70-6.50) H 07/30/18 21:10 Absolute Band Neuts 0.44 10^3/uL (0.00-0.70) 07/30/18 21:10 Absolute Lymphocytes 1.74 10^3/uL (1.00-3.00) 07/30/18 21:10 Absolute Monocytes 0.73 10^3/uL (0.30-0.80) 07/30/18 21:10 Absolute Eosinophils 0.29 10^3/uL (0.03-0.40) 07/30/18 21:10 Absolute Basophils 0.00 10^3/uL (0.02-0.10) L 07/30/18 21:10 Absolute Metamyelocyte 0.00 10^3/mL (0.00-0.00) 07/30/18 21:10 Absolute Myelocytes 0.00 10^3/mL (0.00-0.00) 07/30/18 21:10 Absolute Promyelocytes 0.00 10^3/uL (0.00-0.00) 07/30/18 21:10 Absolute Plasma Cells 0.00 10^3/uL (0.00-0.00) 07/30/18 21:10 Nucleated RBCs 0 /100 WBC (0-0) 07/30/18 21:10 Absolute Blast Cells 0.00 10^3/uL (0.00-0.00) 07/30/18 21:10 Plasma Cells % 0.0 % 07/30/18 21:10 Platelet Estimate INCREASED (ADEQ) H 07/30/18 21:10 Sodium 116 mEq/L (135-145) L* 07/30/18 21:10 Potassium 4.1 mEq/L (3.3-5.0) 07/30/18 21:10 Chloride 79 mEq/L (97-110) L 07/30/18 21:10 Carbon Dioxide 27 mEq/l (22-31) 07/30/18 21:10 Anion Gap 10 mEq/L (6-14) 07/30/18 21:10 BUN 13 mg/dL (7-23) 07/30/18 21:10 Creatinine 0.5 mg/dL (0.6-1.0) L 07/30/18 21:10 Estimated GFR > 60 07/30/18 21:10 Glucose 124 mg/dL (70-100) H 07/30/18 21:10 Calcium 9.1 mg/dL (8.5-10.4) 07/30/18 21:10 POC Troponin I 0.00 ng/mL (0.00-0.08) 07/30/18 21:11 NT-Pro-B Natriuret Pep 164 pg/mL (0-450) 07/30/18 21:10 Specimen Hemolysis 104 07/30/18 21:10 Imaging Review: Imaging Impressions Chest X-Ray 07/30/18 20:07 Impression: 1. COPD/emphysema, with basilar atelectasis, without definite evidence of pneumonia. 2. New moderate T6 compression fracture, with slight increase in a severe compression fracture at T7. Findings discussed with Catrina Tsai M.D., on July 30, 2018 at 2055. Visualized and Interpreted EKG results: Yes EKG Interpretation: Positive for: other (Sinus tachycardia) Assessment & Plan Assessment: 73 yo F w/ COPD presents with COPD exacerbation, hyponatremia, and compression fracture. Plan: 1. COPD exacerbation, recurrent - She presents today with progressive SOB, wheezing, and cough. She denies new infectious symptoms, CXR (personally reviewed/interpreted) without evidence of pneumonia. She initially felt well after discharge on 07/05 after treatment for COPD exacerbation, but her symptoms slowly returned after discontinuation of steroids. - Restart prednisone 40 mg qD, may need taper - Duonebs QID, albuterol PRN - Will observe off of antibiotics, check procalcitonin 2. Hyponatremia - Acute on chronic; she presents today with Na of 116 without neurologic symptoms. Her last sodium known was 132 on 07/05. She denies any change in her usual fluid intake. - S/p 500 mL NS in the ED prior to lab results - Recheck BMP now and respond accordingly - Obtain [place], Yelena - Will start 2 L fluid restriction noting high suspicion for SIADH - Renal consult if not correcting appropriately 3. Back pain - Likely related to new moderate T6 compression fracture, with slight increase in a severe compression fracture at T7 seen on XR. Patient only describes this as mildly bothersome at the moment. - Conservative pain control for now - Will need evaluation/treatment for osteoporosis as outpatient - I do not feel evaluation for kyphoplasty is indicated at the moment unless symptoms prove difficult to manage conservatively 4. Hypertension - Continue home metoprolol 5. Hypothyroid - Continue LTX Diet - Regular, 2 L fluid restriction Code - Full Ppx - SCDs Dispo - Admit under observation status
[2018-07-30] MEDS ORDERED: ALBUTEROL 60 PUFFS/8 GM MDI IH PRN (23:16)
[2018-07-31] MEDS ORDERED: D5W 1,000 ML IV SCH ×3 (01:00→11:15)
[2018-07-31] MEDS: ACETAMINOPHEN 325 MG TAB PO PRN ×3 (03:32→17:18)
[2018-07-31 05:32] LABS: PLATELET COUNT 457 10^3/uL (150-400)
[2018-07-31] MEDS: IPRATROPIUM/ALBUTEROL 3 ML DEYVIAL IH SCH ×4 (05:34→21:25)
[2018-07-31] MEDS ORDERED: BENZONATATE 100 MG CAP PO PRN (05:38)
[2018-07-31] MEDS: LEVOTHYROXINE 100 MCG TAB PO SCH (05:47)
[2018-07-31] MEDS: GUAIFENESIN/DM 10 ML UDCUP PO PRN ×3 (05:47→11:55)
[2018-07-31] MEDS: OMEGA-3 FATTY ACIDS 1,000 MG CAP PO SCH (08:25)
[2018-07-31] MEDS: ESCITALOPRAM OXALATE 10 MG TAB PO SCH (08:25)
[2018-07-31] MEDS: ROSUVASTATIN CALCIUM 10 MG TAB PO SCH (08:25)
[2018-07-31] MEDS: METOPROLOL SUCCINATE XR 25 MG TAB PO SCH (08:26)
[2018-07-31] MEDS: CHOLECALCIFEROL VIT D3 2,000 UNITS TAB/CAP PO SCH (08:26)
[2018-07-31] MEDS: MULTIVITAMINS 1 EACH TAB PO SCH (08:26)
[2018-07-31] MEDS: predniSONE 20 MG TAB PO SCH (08:27)
--- NOTE | 2018-07-31 10:29 | ASMTCMCOM ---
CM Note CM Note Notes: 07/31/2018 Case Management Note Pt admitted for treatment of COPD exacerbation. Pt has had multiple admissions since Oct. Met w/pt and [place] [phone] to discuss d/c needs. There are no therapy evals ordered at this time. Pt is ambulating in the room without difficulty. 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 Discussed benefits of palliative care. Provided hand out. Pt is interested in outpatient consult for palliative care. Notified MD. Discussed multiple agencies. Pt chose [facility]. Referral sent via [employer]. Case Management d/c poc: anticipating home independent with [facility] support. Case Management to follow. Date Signed: 07/31/2018 10:28 AM Electronically Signed By:Kallie Ortega RN
[2018-07-31] MEDS ORDERED: NS 1,000 ML IV SCH (10:45)
--- NOTE | 2018-07-31 11:04 | PDCONSULT ---
Safety Tech Note: Assessment/Plan: Hyponatremia: low urine sodium, could be from poor oral intake but more likely related to COPD exacerbation. Na now improving from 116 to 121 despite getting D5W overnight. - Goal sodium is 122-124 by tomorrow am, want to correct slowly. - Will continue D5W at 50ml/hr to prevent overcorrection. - Will check TSH and am cortisol. - Will continue to monitor q6h. Thank you for the interesting consult. Nephrology will continue to follow, please call if you have any additional questions or concerns. H & P Stated Complaint: resp. diff for a few days Time Seen by Provider: 07/30/18 20:01 HPI/ROS: HPI: Ms. Mota is a 73 yo F with h/o COPD who was admitted with hyponatremia and COPD exacerbation. Pt presented with worsening dyspnea and cough, feeling better today with prednisone. She was last on prednisone a month ago for an exacerbation. Pt denies any h/o hyponatremia, noted that sodium this year has been running 130-132 but prior to that had always been wnl. She was 116 on presentation last night, was given 500ml NS and na went up to 138. She was given 200ml D5W and came back down to 119, now 121 with continuing D5W at 50ml/ hr this am. ROS: positive per HPI, rest of 10-point ROS negative - Personal History Current Tetanus/Diphtheria Vaccine: Yes Current Tetanus Diphtheria and Acellular Pertussis (TDAP): Yes Tetanus Vaccine Date: < 10 years - Medical/Surgical History Hx Asthma: No Hx Chronic Respiratory Disease: Yes Hx Diabetes: No Hx Cardiac Disease: Yes Hx Renal Disease: No Hx Cirrhosis: No Hx Alcoholism: No Hx HIV/AIDS: No Hx Splenectomy or Spleen Trauma: No Other PMH: hypothyroid,high cholesterol,temporary global amnesia, bilateral cataract surgery, hysterectomy.R elbow ORIF., mild asthma - Family History Significant Family History: No pertinent family hx - Social History Smoking Status: Former smoker - Physical Exam Exam: General: alert and oriented, no acute distress Eyes: EOMI, PERRL OP: Clear, MMM Neck: supple, no thyromegaly CV: RRR, no edema BLE Resp: nonlabored respirations on NC, +wheezing Abd: Soft, NT/ND Neuro: CN II-XII grossly intact, no asterixis Psych: cooperative, appropriate mood and affect Skin: C/D/I, no rash Constitutional: Initial Vital Signs Temperature (C) 36.8 C 07/30/18 19:52 Heart Rate 102 H 07/30/18 19:52 Respiratory Rate 20 07/30/18 19:52 Blood Pressure 182/108 H 07/30/18 19:52 O2 Sat (%) 90 L 07/30/18 19:52 O2 Delivery Mode Nasal Cannula O2 (L/minute) 2 Allergies/Adverse Reactions: tramadol Allergy (Unknown, Verified 07/30/18 21:23) Other-Enter Comments Home Medications: Medication Instructions Recorded Albuterol [Proventil Inhaler HFA 1 - 2 puffs IH Q4 PRN 01/06/17 (*)] Levothyroxine [Synthroid 100 mcg 100 mcg PO DAILY06 11/13/17 (*)] Rosuvastatin Calcium [Crestor] 10 mg PO DAILY 11/13/17 Cholecalciferol Vit D3 [Vitamin D3 5,000 units PO DAILY 07/04/18 2000 units tab (OTC)] Escitalopram Oxalate [Lexapro 10 10 mg PO DAILY 07/04/18 MG] Metoprolol Succinate Xr [Toprol Xl 25 mg PO DAILY 07/04/18 25 mg (*)] Multivitamins [Multivitamin (*)] 1 each PO DAILY 07/04/18 [place]-3 Fatty Acids [Fish Oil 1000 1,000 mg PO DAILY 07/04/18 mg (*)] Tiotropium Inhaler [Spiriva 18 mcg IH DAILY 07/04/18 Inhaler (RX)] Acetaminophen [Tylenol ES 500 mg 500 mg PO Q6 07/30/18 (*)] Montelukast Sodium [Singulair 10 10 mg PO HS 07/30/18 mg (*)] Lab and Imaging 07/31/18 05:00 07/31/18 09:40 WBC 14.31 10^3/uL (3.80-9.50) H 07/31/18 05:00 RBC 3.86 10^6/uL (4.18-5.33) L 07/31/18 05:00 Hgb 12.2 g/dL (12.6-16.3) L 07/31/18 05:00 Hct 33.8 % (38.0-47.0) L 07/31/18 05:00 MCV 87.6 fL (81.5-99.8) 07/31/18 05:00 MCH 31.6 pg (27.9-34.1) 07/31/18 05:00 MCHC 36.1 g/dL (32.4-36.7) 07/31/18 05:00 RDW 12.1 % (11.5-15.2) 07/31/18 05:00 Plt Count 457 10^3/uL (150-400) H 07/31/18 05:00 MPV 7.8 fL (8.7-11.7) L 07/31/18 05:00 Neut % (Auto) 67.5 % (39.3-74.2) 07/31/18 05:00 Lymph % (Auto) 29.5 % (15.0-45.0) 07/31/18 05:00 [place] % (Auto) 1.5 % (4.5-13.0) L 07/31/18 05:00 Eos % (Auto) 0.0 % (0.6-7.6) L 07/31/18 05:00 Baso % (Auto) 0.2 % (0.3-1.7) L 07/31/18 05:00 Nucleat RBC Rel Count 0.0 % (0.0-0.2) 07/31/18 05:00 Absolute Neuts (auto) 9.66 10^3/uL (1.70-6.50) H 07/31/18 05:00 Absolute Lymphs (auto) 4.22 10^3/uL (1.00-3.00) H 07/31/18 05:00 Absolute Monos (auto) 0.21 10^3/uL (0.30-0.80) L 07/31/18 05:00 Absolute Eos (auto) 0.00 10^3/uL (0.03-0.40) L 07/31/18 05:00 Absolute Basos (auto) 0.03 10^3/uL (0.02-0.10) 07/31/18 05:00 Absolute Nucleated RBC 0.00 10^3/uL (0-0.01) 07/31/18 05:00 Immature Gran % 1.3 % (0.0-1.1) H 07/31/18 05:00 Seg Neutrophils % 78.0 % 07/30/18 21:10 Band Neutrophils % 3.0 % 07/30/18 21:10 Lymphocytes % 12.0 % 07/30/18 21:10 Monocytes % 5.0 % 07/30/18 21:10 Eosinophils % 2.0 % 07/30/18 21:10 Basophils % 0.0 % 07/30/18 21:10 Metamyelocytes % 0.0 % 07/30/18 21:10 Myelocytes % 0.0 % 07/30/18 21:10 Promyelocytes % 0.0 % 07/30/18 21:10 Blast Cells % 0.0 % 07/30/18 21:10 Immature Gran # 0.19 10^3/uL (0.00-0.10) H 07/31/18 05:00 Absolute Seg Neuts 11.31 10^/uL (1.70-6.50) H 07/30/18 21:10 Absolute Band Neuts 0.44 10^3/uL (0.00-0.70) 07/30/18 21:10 Absolute Lymphocytes 1.74 10^3/uL (1.00-3.00) 07/30/18 21:10 Absolute Monocytes 0.73 10^3/uL (0.30-0.80) 07/30/18 21:10 Absolute Eosinophils 0.29 10^3/uL (0.03-0.40) 07/30/18 21:10 Absolute Basophils 0.00 10^3/uL (0.02-0.10) L 07/30/18 21:10 Absolute Metamyelocyte 0.00 10^3/mL (0.00-0.00) 07/30/18 21:10 Absolute Myelocytes 0.00 10^3/mL (0.00-0.00) 07/30/18 21:10 Absolute Promyelocytes 0.00 10^3/uL (0.00-0.00) 07/30/18 21:10 Absolute Plasma Cells 0.00 10^3/uL (0.00-0.00) 07/30/18 21:10 Nucleated RBCs 0 /100 WBC (0-0) 07/30/18 21:10 RBC/WBC/PLT Morphology TNP 07/31/18 05:00 Absolute Blast Cells 0.00 10^3/uL (0.00-0.00) 07/30/18 21:10 Plasma Cells % 0.0 % 07/30/18 21:10 Smudge Cells 1+ H 07/31/18 05:00 Platelet Estimate INCREASED (ADEQ) H 07/31/18 05:00 Sodium 121 mEq/L (135-145) L 07/31/18 09:40 Potassium 4.5 mEq/L (3.3-5.0) 07/31/18 09:40 Chloride 81 mEq/L (97-110) L 07/31/18 09:40 Carbon Dioxide 27 mEq/l (22-31) 07/31/18 09:40 Anion Gap 13 mEq/L (6-14) 07/31/18 09:40 BUN 8 mg/dL (7-23) 07/31/18 09:40 Creatinine 0.4 mg/dL (0.6-1.0) L 07/31/18 09:40 Estimated GFR > 60 07/31/18 09:40 Glucose 184 mg/dL (70-100) H 07/31/18 09:40 Serum Osmolality 295 mosmo/kg (280-297) 07/30/18 23:32 Calcium 9.7 mg/dL (8.5-10.4) 07/31/18 09:40 POC Troponin I 0.00 ng/mL (0.00-0.08) 07/30/18 21:11 NT-Pro-B Natriuret Pep 164 pg/mL (0-450) 07/30/18 21:10 Procalcitonin 0.03 ng/mL (0.02-0.10) 07/30/18 23:32 Specimen Hemolysis 104 07/30/18 21:10 Urine Osmolality 207 mosmo/kg (300-900) L 07/31/18 00:58 Ur Random Creatinine 27.7 mg/dL 07/31/18 00:58 Ur Random Sodium 18 mEq/L (30-90) L 07/31/18 00:58
--- NOTE | 2018-07-31 11:32 | HOSPPROG ---
Hospitalist Progress Note Assessment/Plan: 73 yo F w/ COPD presents with COPD exacerbation, hyponatremia, and compression fracture. 1. COPD exacerbation, recurrent - She presents today with progressive SOB, wheezing, and cough. She denies new infectious symptoms, CXR (personally reviewed/interpreted) without evidence of pneumonia. She initially felt well after discharge on 07/05 after treatment for COPD exacerbation, but her symptoms slowly returned after discontinuation of steroids. - cont prednisone 40 mg qD, will taper slowly - Duonebs QID, albuterol PRN - Will observe off of antibiotics 2. Hyponatremia - Acute on chronic; Admitted with Na of 116 without neurologic symptoms. -cont with D5W per Nephrology -Low Urine Na noted 3. Back pain - Likely related to new moderate T6 compression fracture, with slight increase in a severe compression fracture at T7 seen on XR. Patient only describes this as mildly bothersome at the moment. - Conservative pain control for now - Will need evaluation/treatment for osteoporosis as outpatient - I do not feel evaluation for kyphoplasty is indicated at the moment unless symptoms prove difficult to manage conservatively 4. Hypertension - Continue home metoprolol 5. Hypothyroid - Continue LTX, check TSH Diet - Regular Code - Full Ppx - SCDs Dispo - change to inpatient Subjective: SOB is improving. Na is still low. No neuro deficits Objective: Vital Signs Temp Pulse Resp BP Pulse Ox 36.6 C 87 18 141/80 H 95 07/31/18 07:30 07/31/18 10:43 07/31/18 10:43 07/31/18 08:26 07/31/18 10:43 Laboratory Results 07/31/18 05:00 07/31/18 09:40 07/30/18 07/31/18 08/01/18 05:59 05:59 05:59 Intake Total 801 Output Total 1100 200 Balance -1100 601 - Physical Exam Constitutional: no apparent distress Eyes: PERRL Ears, Nose, Mouth, Throat: moist mucous membranes, hearing normal Cardiovascular: regular rate and rhythym, No edema Respiratory: no respiratory distress, reduced air movement, expiratory wheeze Gastrointestinal: normoactive bowel sounds, soft, non-tender abdomen Skin: warm Neurologic: AAOx3 Psychiatric: interacting appropriately, not anxious, not encephalopathic ICD10 Worksheet Patient Problems: Problems Problem Status Onset COPD exacerbation Acute Thoracic compression fracture Acute Acute bronchitis Acute Asthma exacerbation Acute Subarachnoid hemorrhage Acute TIA (transient ischemic attack) Acute
--- NOTE | 2018-07-31 12:29 | PDMN ---
Medical Necessity Medical necessity: MCG M100- COPD exacerbation- progressive SOB with wheezing and cough. acute exacerbation with O2 needs further tx needed, also with hyponatremia( nephrology consult) compression fx - ( conservative pain control for now) > 2 MN. status changed to INPT 07/31/18 for ongoing tx, further eval and monitoring
[2018-07-31] MEDS ORDERED: SODIUM CHLORIDE 1,000 MG TAB PO ONE (20:44)
[2018-07-31] MEDS: LIDOCAINE 4%/MENTHOL 1% PATCH TD SCH (21:42)
[2018-07-31] MEDS: MONTELUKAST SODIUM 10 MG TAB PO SCH (21:43)
[2018-07-31] MEDS: METHOCARBAMOL 500 MG TAB PO SCH (21:43)
[2018-08-01] MEDS: ACETAMINOPHEN 325 MG TAB PO PRN ×3 (02:52→22:01)
[2018-08-01] MEDS: IPRATROPIUM/ALBUTEROL 3 ML DEYVIAL IH SCH ×4 (05:53→21:17)
[2018-08-01 06:03] LABS: PLATELET COUNT 488 10^3/uL (150-400)
[2018-08-01] MEDS: LEVOTHYROXINE 100 MCG TAB PO SCH (06:45)
[2018-08-01] MEDS: CHOLECALCIFEROL VIT D3 2,000 UNITS TAB/CAP PO SCH (08:59)
[2018-08-01] MEDS: predniSONE 20 MG TAB PO SCH (08:59)
[2018-08-01] MEDS: MULTIVITAMINS 1 EACH TAB PO SCH (08:59)
[2018-08-01] MEDS: OMEGA-3 FATTY ACIDS 1,000 MG CAP PO SCH (08:59)
[2018-08-01] MEDS: ESCITALOPRAM OXALATE 10 MG TAB PO SCH (08:59)
[2018-08-01] MEDS: METHOCARBAMOL 500 MG TAB PO SCH ×3 (09:01→20:08)
[2018-08-01] MEDS: METOPROLOL SUCCINATE XR 25 MG TAB PO SCH (09:01)
[2018-08-01] MEDS: ROSUVASTATIN CALCIUM 10 MG TAB PO SCH (09:01)
[2018-08-01] MEDS: PATCH REMOVAL 1 EA PATCH TD SCH (10:00)
[2018-08-01] MEDS ORDERED: PROTOCOL MAGNESIUM 1 DOSE IV PRN (10:42)
--- NOTE | 2018-08-01 10:46 | HOSPPROG ---
Hospitalist Progress Note Assessment/Plan: 73 yo F w/ COPD presents with COPD exacerbation, hyponatremia, and compression fracture. 1. COPD exacerbation, recurrent - She presents today with progressive SOB, wheezing, and cough. She denies new infectious symptoms, CXR (personally reviewed/interpreted) without evidence of pneumonia. She initially felt well after discharge on 07/05 after treatment for COPD exacerbation, but her symptoms slowly returned after discontinuation of steroids. - cont prednisone 40 mg qD, will taper slowly. No change today. - Duonebs QID, albuterol PRN - cont observe off of antibiotics 2. Hyponatremia - Acute on chronic; Admitted with Na of 116 without neurologic symptoms. -per Nephrology -Low Urine Na noted 3. Back pain - Likely related to new moderate T6 compression fracture, with slight increase in a severe compression fracture at T7 seen on XR. Patient only describes this as mildly bothersome at the moment. - Conservative pain control for now - Will need evaluation/treatment for osteoporosis as outpatient - I do not feel evaluation for kyphoplasty is indicated at the moment unless symptoms prove difficult to manage conservatively. She feels she can ambulate without significant discomfort. She will walk around the halls today. -Home Robaxin 4. Hypertension - Continue home metoprolol 5. Hypothyroid - Continue LTX, TSH: 3.7 6. HLD: cont Crestor 7. Leukocytosis, steroid mediated Diet - Regular Code - Full Ppx - SCDs Dispo - cont inpatient. Will await further Nephrology reccs Subjective: breathing is better. Still with low serum sodium but overall improved Objective: Vital Signs Temp Pulse Resp BP Pulse Ox 36.7 C 94 14 150/91 H 92 08/01/18 07:43 08/01/18 07:43 08/01/18 07:43 08/01/18 07:43 08/01/18 07:43 Laboratory Results 08/01/18 04:57 08/01/18 04:57 07/31/18 08/01/18 08/02/18 05:59 05:59 05:59 Intake Total 260 Output Total 150 Balance 110 - Physical Exam Constitutional: no apparent distress Eyes: PERRL Ears, Nose, Mouth, Throat: moist mucous membranes, hearing normal Cardiovascular: regular rate and rhythym Respiratory: reduced air movement, expiratory wheeze Gastrointestinal: normoactive bowel sounds, soft, non-tender abdomen Skin: warm Musculoskeletal: full muscle strength Neurologic: AAOx3 Psychiatric: interacting appropriately, not anxious, not encephalopathic Lymph, Heme, Immunologic: No petechiae ICD10 Worksheet Patient Problems: Problems Problem Status Onset COPD exacerbation Acute Thoracic compression fracture Acute Acute bronchitis Acute Asthma exacerbation Acute Subarachnoid hemorrhage Acute TIA (transient ischemic attack) Acute
[2018-08-01] MEDS: oxyCODONE IR 5 MG TAB PO PRN (11:17)
--- NOTE | 2018-08-01 15:47 | SOAPPROG ---
SOAP Progress Note Assessment/Plan: Assessment: hyponatremia, improving COPD, stable unusual Sosm on admit, would like to repeat and check for possible paraproteinemia Plan: continue current Rx follow Na repeat her seum and urine OSM check for paraproteinemia 08/01/18 15:44 Subjective: resting enjoying her [employer] book no cp sob nausea vomiting or pain slept OK last night appetite OK spirits good Objective: Vital Signs Temp Pulse Resp BP Pulse Ox 36.8 C 86 14 156/88 H 96 08/01/18 11:59 08/01/18 11:59 08/01/18 11:59 08/01/18 11:59 08/01/18 11:59 Laboratory Results 08/01/18 04:57 08/01/18 12:50 07/31/18 08/01/18 08/02/18 05:59 05:59 05:59 Intake Total 260 Output Total 150 Balance 110 Physical Exam - Physical Exam General Appearance: alert, thin Neck: normal inspection Respiratory: No rales, No rhonchi, No wheezing Cardiac/Chest: regular rate, rhythm, No edema, No friction rub Abdomen: normal bowel sounds, non-tender, soft Extremities: non-tender, No pedal edema Neuro/Psych: alert, normal mood/affect, oriented x 3 ICD10 Worksheet Patient Problems: Problems Problem Status Onset COPD exacerbation Acute Thoracic compression fracture Acute Acute bronchitis Acute Asthma exacerbation Acute Subarachnoid hemorrhage Acute TIA (transient ischemic attack) Acute
[2018-08-01] MEDS: LIDOCAINE 4%/MENTHOL 1% PATCH TD SCH (20:09)
[2018-08-01] MEDS: MONTELUKAST SODIUM 10 MG TAB PO SCH (20:15)
[2018-08-02] MEDS: LEVOTHYROXINE 100 MCG TAB PO SCH (05:17)
[2018-08-02 05:58] LABS: PLATELET COUNT 496 10^3/uL (150-400)
[2018-08-02] MEDS: ACETAMINOPHEN 325 MG TAB PO PRN (06:28)
[2018-08-02] MEDS: IPRATROPIUM/ALBUTEROL 3 ML DEYVIAL IH SCH ×2 (06:34→09:27)
[2018-08-02] MEDS: oxyCODONE IR 5 MG TAB PO PRN (07:25)
[2018-08-02] MEDS: ESCITALOPRAM OXALATE 10 MG TAB PO SCH (07:25)
[2018-08-02] MEDS: METHOCARBAMOL 500 MG TAB PO SCH (07:25)
[2018-08-02] MEDS: METOPROLOL SUCCINATE XR 25 MG TAB PO SCH (07:25)
[2018-08-02] MEDS: CHOLECALCIFEROL VIT D3 2,000 UNITS TAB/CAP PO SCH (09:35)
[2018-08-02] MEDS: OMEGA-3 FATTY ACIDS 1,000 MG CAP PO SCH (09:37)
[2018-08-02] MEDS: MULTIVITAMINS 1 EACH TAB PO SCH (09:37)
[2018-08-02] MEDS: predniSONE 20 MG TAB PO SCH (09:37)
[2018-08-02] MEDS: ROSUVASTATIN CALCIUM 10 MG TAB PO SCH (09:37)
[2018-08-02] MEDS: PATCH REMOVAL 1 EA PATCH TD SCH (09:42)
[2018-08-02 11:12] VITALS: BP 132/92
--- NOTE | 2018-08-02 12:33 | PDDCSUM ---
Discharge Summary Discharge Summary: 73 yo F w/ COPD presents with COPD exacerbation, hyponatremia, and compression fracture. Her resp symptoms are much improved and she will d/c with a steroid taper. She was found to have hyponatremia per below. she and her family are requesting discharge and they will be d/c today. Nephrology provided consultation for the hyponatremia. She will have fluid restriction. Na is better. DDX 1. COPD exacerbation, recurrent - Admitted with progressive SOB, wheezing, and cough. She denies new infectious symptoms, CXR (personally reviewed/interpreted ) without evidence of pneumonia. She initially felt well after discharge on after treatment for COPD exacerbation, but her symptoms slowly returned after discontinuation of steroids. - cont prednisone 40 mg qD, will taper slowly. - albuterol PRN - no antibiotics 2. Hyponatremia - Acute on chronic; Admitted with Na of 116 without neurologic symptoms. -Low Urine Na initially. -Etiology is likely volume depletion and underlying SiADH. Much improved. Na 130 on discharge. will cont with fluid restriction 3. Back pain - Likely related to new moderate T6 compression fracture, with slight increase in a severe compression fracture at T7 seen on XR. Patient only describes this as mildly bothersome at the moment. - Conservative pain control for now - Will need evaluation/treatment for osteoporosis as outpatient - I do not feel evaluation for kyphoplasty is indicated at the moment unless symptoms prove difficult to manage conservatively. She feels she can ambulate without significant discomfort. She is able to walk around the halls w/o difficulty. 4. Hypertension - Continue home metoprolol 5. Hypothyroid - Continue LTX, TSH: 3.7 6. HLD: cont Crestor 7. Leukocytosis, steroid mediated Exam: NAD 2LO2 MILDLY DECREASED LUNG SOUND S/NT/ND NO LED EDEMA MEDS: SEE MED REC F/U: WITH PCP NEXT WEEK TOTAL TIME SPENT ON D/C IS 40 MINS. Included coordination with Nephrology and nurse.
--- NOTE | 2018-08-02 14:16 | ASMTLACE ---
LACE Length of stay for Answers: 2 days current admission Acuity / Level of Answers: Yes Care: Did the patient have an inpatient admission? Comorbidities - select Answers: Chronic pulmonary disease all that apply Other Notes: Hypothyroid; HLD; GERD # of Emergency department Answers: 1-2 visits in the last 6 months Score: 9 Date Signed: 08/02/2018 02:16 PM Electronically Signed By:Lucina Pop RN
--- NOTE | 2018-08-02 16:50 | PDIAF ---
- Diagnosis Diagnosis: copd exacerbation Code Status: Full Code - Medication Management Discharge Medications: Medications to Continue on Transfer Albuterol [Proventil Inhaler HFA (*)] 1 - 2 puffs IH Q4 PRN 01/06/17 [Last Taken 07/30/18] Levothyroxine [Synthroid 100 mcg (*)] 100 mcg PO DAILY06 11/13/17 [Last Taken ] Rosuvastatin Calcium [Crestor] 10 mg PO DAILY 11/13/17 [Last Taken 07/04/18] Cholecalciferol Vit D3 [Vitamin D3 2000 units tab (OTC)] 5,000 units PO DAILY [Last Taken 07/04/18] Escitalopram Oxalate [Lexapro 10 MG] 10 mg PO DAILY 07/04/18 [Last Taken ] Metoprolol Succinate Xr [Toprol Xl 25 mg (*)] 25 mg PO DAILY 07/04/18 [Last Taken 07/04/18] Multivitamins [Multivitamin (*)] 1 each PO DAILY 07/04/18 [Last Taken 07/04/18] [place]-3 Fatty Acids [Fish Oil 1000 mg (*)] 1,000 mg PO DAILY 07/04/18 [Last Taken 07/04/18] Tiotropium Inhaler [Spiriva Inhaler (RX)] 18 mcg IH DAILY 07/04/18 [Last Taken 07/04/18] Acetaminophen [Tylenol ES 500 mg (*)] 500 mg PO Q6 07/30/18 [Last Taken 07/30/18 ] Montelukast Sodium [Singulair 10 mg (*)] 10 mg PO HS 07/30/18 [Last Taken Unknown] Lidocaine 4%/Menthol 1% [[place] Hot Lidocaine/Menthol 4%/1% Patch (*)] 1 patch TD HS #30 patch 08/02/18 [Last Taken Unknown] predniSONE 40 mg PO DAILY #10 tablet 08/02/18 [Last Taken Unknown] Discharge Medications: Refer to the Discharge Home Medication list for PRN reason. - Orders Services needed: Home Care, Physical Therapy Home Care Face to Face: I certify that this patient was under my care and that I had the required [id number] encounter meeting the encounter requirements on the discharge day. My findings support the fact that the patient is homebound as defined in Home Care Face to Face Continued: [facility] Chapter 7 Medicare Benefits Manual 30.1.1 , The condition of the patient is such that there exists a normal inability to leave home and consequently, leaving home would require a considerable and taxing effort. Isolation Type: None Diet Recommendation: other (please restrict to 1500 ml fluid daily) Diet Texture: Regular Texture Diet Additional Instructions: Activity: as tolerated follow up: with PCP next week, please make appointment. At your appointment, please make sure to check your Sodium. Please also discuss your COPD (Lungs) and your back pain. Diet: please restrict your total daily fluid intake to 1500 ml - Follow Up Care Current Providers and Referrals: Bruna Mercado MD [Primary Care Provider] - As per Instructions
--- NOTE | 2018-08-02 17:29 | ASDISCHSUM ---
Discharge Information Plan Status:Home with Home Health Medically Cleared to Leave: Discharge Date:08/02/2018 02:34 PM D/C Disposition:Home Health Service ADT D/C Disposition:Home, Routine, Self-Care Projected Discharge Date:08/02/2018 11:00 AM Transportation at D/C:Family Discharge Delay Reason: Follow-Up Date:08/02/2018 11:00 AM Discharge Slot: Final Diagnosis: Placement Information Referral Type:Palliative Care Referral ID:[id number] Provider Name: Address 1: Phone Number: Address 2: Fax Number: City: Selection Factors: State: Referral Type:*Home Health Care Services Referral ID:[id number] Provider Name:[facility] Address 1:[address] [facility] [address] Address 2: City:[place] Selection Factors: State:[place] Patient Contact Information Contact Name:SALMA Relationship: Address:[address] [place] [address] City:[place] Alternate Phone: State/Zip Code:[place] [address] Email: Financial Information Financial Class:Medicare Advantage Plans Primary Plan Desc:[employer] PPO Primary Plan Number:[id number] Secondary Plan Desc: Secondary Plan Number: Assessment Information LACE LACE Length of stay for Answers: 2 days current admission Acuity / Level of Answers: Yes Care: Did the patient have an inpatient admission? Comorbidities - select Answers: Chronic pulmonary disease all that apply Other Notes: Hypothyroid; HLD; GERD # of Emergency department Answers: 1-2 visits in the last 6 months Score: 9 Date Signed: 08/02/2018 02:16 PM Electronically Signed By:Lucina Pop RN [facility] Progress Note CM Note CM Note Notes: 07/31/2018 Case Management Note Pt admitted for treatment of COPD exacerbation. Pt has had multiple admissions since Oct. Met w/pt and [place] [phone] to discuss d/c needs. There are no therapy evals ordered at this time. Pt is ambulating in the room without difficulty. 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 Discussed benefits of palliative care. Provided hand out. Pt is interested in outpatient consult for palliative care. Notified MD. Discussed multiple agencies. Pt chose [facility]. Referral sent via [employer]. Case Management d/c poc: anticipating home independent with [facility] Palliative support. Case Management to follow. Date Signed: 07/31/2018 10:28 AM Electronically Signed By:Kallie Ortega RN Intervention Information
== END 2018-08-02 14:34 | disposition home or self-care (01) | DRG 191 ==
LOC: F3E 21:40 → OBSVTOIN 07-31 11:53
PROVIDERS: ADMIT Internal Medicine; ATTEND Internal Medicine
DX: J44.1 Chronic obstructive pulmonary disease with (acute) exacerbation (principal); E87.1 Hypo-osmolality and hyponatremia; M48.54XA Collapsed vertebra, not elsewhere classified, thoracic region, initial encounter for fracture; E03.9 Hypothyroidism, unspecified; I10 Essential (primary) hypertension; E78.5 Hyperlipidemia, unspecified; E86.9 Volume depletion, unspecified; Z87.891 Personal history of nicotine dependence
CPT/HCPCS: 84484-PO; 86334-90; 96374; 97116-GP; 97161-GP; G0378; G8978-GP-CJ; G8979-GP-CI; J2930; J3475; J7512; J7613

== ENCOUNTER → 2018-08-17 | Outpatient (CLI) | payer OTHER | LOC: BMCIMAGING 12:37 | PROVIDERS: ATTEND Family Medicine Geriatric Medicine | DX: J98.11 Atelectasis (principal); S22.070A Wedge compression fracture of T9-T10 vertebra, initial encounter for closed fracture ==

== ENCOUNTER → 2018-08-20 | Outpatient (CLI) | payer OTHER ==
[~2018-08-20] MED LIST changes: -GADOBUTROL 10 ML VIAL IVP ONE; +IOPAMIDOL (ISOVUE-300) 100 ML BTL ONE
== END ==
LOC: FIMAGING 15:17
PROVIDERS: ATTEND Family Medicine Geriatric Medicine
DX: J43.9 Emphysema, unspecified (principal); J98.11 Atelectasis; R59.0 Localized enlarged lymph nodes; K44.9 Diaphragmatic hernia without obstruction or gangrene; M53.84 Other specified dorsopathies, thoracic region
CPT/HCPCS: 71260; Q9967

== ENCOUNTER 2019-01-05 11:21 | Inpatient (IN) | payer OTHER ==
--- NOTE | 2019-01-05 11:34 | EDPHY ---
H & P Time Seen by Provider: 01/05/19 11:24 HPI/ROS: CHIEF COMPLAINT: Slurred speech, unsteady gait HISTORY OF PRESENT ILLNESS: 73-year-old female with oxygen-dependent COPD presents with slurred speech and unsteady gait. She was sitting at the breakfast table with her . Sudden onset of slurred speech at 10:30 a.m.. She stood up, was quite unsteady and fell backwards, striking her head on the floor. helped her up and performed a stroke eval at home; no unilateral weakness present. Oxygen saturation was normal at home. brought pt to ED, pt able to walk with assistance but more unsteady than usual. The slurred speech has resolved. At triage, oxygen saturation was 74% on room air, improved with usual O2 by NC. Denies SOB, recent URI, headache or neck pain. REVIEW OF SYSTEMS: complete 10 point ROS reviewed and is negative except for the noted elements in the HPI Source: Patient, Family - Personal History Tetanus Vaccine Date: < 10 years - Medical/Surgical History Hx Asthma: No Hx Chronic Respiratory Disease: Yes Hx Diabetes: No Hx Cardiac Disease: Yes Hx Renal Disease: No Hx Cirrhosis: No Hx Alcoholism: No Hx HIV/AIDS: No Hx Splenectomy or Spleen Trauma: No Other PMH: Oxygen dependent COPD, hypothyroid, high cholesterol, transient global amnesia, bilateral cataract surgery, hysterectomy, R elbow ORIF - Social History Smoking Status: Former smoker Alcohol Use: Sober Additional Social History: - Physical Exam Exam: General Appearance: Alert, talkative, speech is fluent and clear Eyes: No conjunctival erythema, PERRLA, EOMI ENT, Mouth: no oral trauma, no facial bony tenderness Neck: Nontender, full range of motion without pain Respiratory: lungs clear bilaterally Cardiovascular: Regular rate and rhythm Abdomen: Abdomen is soft and nontender Skin: No abrasions Back: No midline T/L/S tenderness Extremities: Pelvis is stable and nontender; no extremity tenderness or deformity, full range of motion without pain Neurological: A&Ox3, normal motor function, normal sensory exam, cranial nerves intact, unsteady gai Psychiatric: Mood and affect normal Constitutional: Initial Vital Signs Temperature (C) 36.9 C 01/05/19 11:26 Heart Rate 84 01/05/19 11:26 Respiratory Rate 17 01/05/19 11:26 Blood Pressure 131/91 H 01/05/19 11:26 O2 Sat (%) 79 L 01/05/19 11:26 O2 Delivery Mode Nasal Cannula O2 (L/minute) 2 Allergies/Adverse Reactions: tramadol Allergy (Unknown, Verified 07/30/18 21:23) Other-Enter Comments Home Medications: Medication Instructions Recorded Albuterol [Proventil Inhaler HFA 1 - 2 puffs IH Q4 PRN 01/06/17 (*)] Levothyroxine [Synthroid 100 mcg 100 mcg PO DAILY06 11/13/17 (*)] Rosuvastatin Calcium [Crestor] 10 mg PO DAILY 11/13/17 Cholecalciferol Vit D3 [Vitamin D3 5,000 units PO DAILY 07/04/18 2000 units tab (OTC)] Multivitamins [Multivitamin (*)] 1 each PO DAILY 07/04/18 Keystone-3 Fatty Acids [Fish Oil 1000 1,000 mg PO DAILY 07/04/18 mg (*)] Tiotropium Inhaler [Spiriva 18 mcg IH DAILY 07/04/18 Inhaler (RX)] Acetaminophen [Tylenol ES 500 mg 500 mg PO Q6 PRN 07/30/18 (*)] Ascorbic Acid [Vitamin C 500 mg 1,000 mg PO DAILY 01/05/19 (*)] Beclomethasone Qvar 80 [Qvar 80 1 inh IH BID 01/05/19 Redihaler (*)] C/E/Zn/Cu/OM3/DHA/EPA/LUT/ZEAX 2 each PO DAILY 01/05/19 [Preservision Areds 2 Softgel] DULoxetine [Cymbalta 20 MG (RX)] 20 mg PO DAILY 01/05/19 Metoprolol Succinate Xr [Toprol Xl 50 mg PO DAILY 01/05/19 50 mg (*)] Medical Decision Making - Diagnostics EKG Interpretation: EKG interpreted by me: NSR, rate 82, no ST/T changes. Interpretation: normal EKG Imaging Results: Head CT 01/05/19 11:31 Impression: 1. Stable moderate to marked atrophy. 2. No hemorrhage, mass effect, or definite acute peripheral infarct. 3. Stable moderate nonspecific hypodensities in the white matter of bilateral cerebral hemispheres. Differential diagnosis includes microvascular ischemic disease, post-infectious/post-inflammatory sequela, atypical demyelinating disease, or migraine-related sequela. Small white matter lacunar infarcts may also have this appearance. 3. Soft tissue contusion over the left frontal bone. If symptoms worsen, additional imaging may be necessary. Findings discussed with Radha Pablo M.D. at 11:51 hour, 01/05/2019. Imaging: Discussed imaging studies w/ heat treat furnace operator Radiologist ED Course/Re-evaluation: This patient presents as a stroke alert. On my initial exam, symptoms have resolved and her speech is clear. NIH stroke score is 0. TPA not indicated. CT scan of the brain reveals no acute hemorrhage or infarct. Repeat exam is normal and stroke score is 0-1 (did not recall year). However, with ambulation , she is listing to the left, which is abnormal for her. She usually has an unsteady gait, but worsened today. Telemedicine consulted. Pt evaluated by Dr. Ochoa of telemedicine. Agrees that TPA is not indicated in this pt. Advises MRI and EEG, as well as further w/u of TIA. Neuro exam x 3 unchanged. The hospitalist service was consulted for admission. Differential Diagnosis: includes though not limited to CVA, TIA, ICH, hypoglycemia, electrolyte abn, hypoxia, intoxicants, ACS - Data Points Laboratory Results: Laboratory Results 01/06/19 04:52 01/06/19 04:52 Medications Given: Acetaminophen (Tylenol) 500 mg PO Q6 PRN PRN Reason: Pain, Mild Stop: 07/04/19 19:36 Last Admin: 01/05/19 21:07 Dose: 500 mg Acetaminophen (Tylenol) 650 mg PO Q4HRS PRN PRN Reason: Pain, Mild/Fever, Can Take PO Stop: 07/05/19 09:13 Last Admin: 01/07/19 05:42 Dose: 650 mg Beclomethasone Dipropionate (Qvar Redihaler) 1 inh IH BID [place] Stop: 07/04/19 20:59 Last Admin: 01/07/19 10:43 Dose: 1 inh Duloxetine HCl (Cymbalta) 20 mg PO DAILY [place] Stop: 07/05/19 08:59 Last Admin: 01/06/19 09:14 Dose: 20 mg Enoxaparin Sodium (Lovenox) 30 mg SC DAILY [place] Stop: 07/05/19 15:44 Last Admin: 01/06/19 18:03 Dose: 30 mg Levothyroxine Sodium (Synthroid) 100 mcg PO DAILY06 [place] Stop: 07/05/19 05:59 Last Admin: 01/07/19 05:43 Dose: 100 mcg Metoprolol Succinate (Toprol Xl) 50 mg PO DAILY [place] Stop: 07/05/19 08:59 Last Admin: 01/07/19 06:40 Dose: 50 mg Rosuvastatin Calcium (Crestor) 10 mg PO DAILY [place] Stop: 07/05/19 08:59 Last Admin: 01/06/19 09:13 Dose: 10 mg Tiotropium [place] (Spiriva Handihaler) 18 mcg IH DAILY [place] Stop: 07/05/19 08:59 Last Admin: 01/07/19 10:43 Dose: 1 inh Discontinued Medications Acetaminophen (Tylenol) 500 mg PO ONCE ONE Stop: 01/05/19 16:28 Last Admin: 01/05/19 16:30 Dose: 500 mg Hydralazine HCl (Apresoline) 10 mg PO ONCE ONE Stop: 01/06/19 00:56 Last Admin: 01/06/19 01:16 Dose: 10 mg Sodium Chloride (Ns) 1,000 mls @ 250 mls/hr IV ONCE ONE Stop: 01/05/19 17:15 Last Admin: 01/05/19 13:50 Dose: 1,000 mls Point of Care Test Results: Chemistry 01/05/19 01/05/19 11:48 11:45 POC Sodium 128 mEq/L L mEq/L (135-145) POC Potassium 4.5 mEq/L mEq/L (3.3-5.0) POC Chloride 89 mEq/L L mEq/L (97-110) POC Total CO2 25 mEq/L mEq/L (22-31) POC BUN 11 mg/dL mg/dL (7-23) POC Creatinine 0.7 mg/dL mg/dL (0.6-1.0) POC Glucose 208 mg/dL H mg/dL (70-100) POC Troponin I 0.00 ng/mL ng/mL (0.00-0.08) ISTAT H&H 01/05/19 11:48 POC Hgb 12.2 gm/dL L gm/dL (12.6-16.3) POC Hct 36 % L % (38-47) Departure - Departure Disposition: [facility] Acute Clinical Impression: TIA (transient ischemic attack) Qualifiers: Transient cerebral ischemia type: unspecified Qualified Code(s): G45.9 - Transient cerebral ischemic attack, unspecified Condition: Fair
[2019-01-05 11:57] LABS: PLATELET COUNT 508 10^3/uL (150-400)
[2019-01-05] MEDS ORDERED: NS 1,000 ML IV ONE (13:16)
--- NOTE | 2019-01-05 13:53 | GHP ---
[f rep st] HISTORY AND PHYSICAL DATE OF ADMISSION: 01/05/2019 CHIEF COMPLAINT: Possible stroke/slurred speech. HISTORY OF PRESENT ILLNESS: This is a 73-year-old female with a history of a subarachnoid hemorrhage and subsequent memory issues, presents with an episode of slurred speech. Most history is provided by her . He says that they had had a normal morning, he made her some cereal. While she was eating the cereal she began dropping the spoon twice. She then had some slurred speech. She got up and "wind milled" her arms as she walked backwards, hit the wall and then fell hitting her head prett y significantly. She did not lose consciousness. After that, she seemed to be somewhat confused, th us he brought her into the emergency department. Here a stroke alert was called given these symptoms . She underwent a head CT, which did not show anything acute. She was seen by tele neurology who re commended no tPA. Her NIH stroke scale was somewhere 0-1. Her tells me now her slurred spee ch has resolved. She is still more confused than her baseline; however, she has significantly improv ed since her brought her here. Notably, when she was at home her performed a quick s troke evaluation and did not find any facial droop or weakness. She has chronic back pain; however, 2 weeks ago she was lifting up something heavy and heard a crack in her back. She has not had any changes in her bowel or bladder habits, no weakness or numbness in her lower extremities. PAST MEDICAL/SURGICAL HISTORY: 1. Hypothyroid. 2. Reactive airways disease. 3. GERD. 4. Hyperlipidemia. 5. Subarachnoid hemorrhage after a fall with subsequent memory issues. 6. Two episodes of reported transient global amnesia. 7. Back injury. 8. COPD, on chronic oxygen with chronic respiratory failure. MEDICATIONS: Please see medication reconciliation. ALLERGIES: Tramadol. FAMILY HISTORY: Reviewed and noncontributory. SOCIAL HISTORY: She lives with her . She does not drink or smoke. She does occasionally dri nk. She quit smoking decades ago. REVIEW OF SYSTEMS: A 10-point review of systems is conducted and is negative except per HPI. PHYSICAL EXAM: VITAL SIGNS: Blood pressure is 117/84, heart rate 83, respiration rate 20, saturatin g 95% on 4 L. Temperature 36.5. GENERAL: Ms. Mota is a pleasant female who is resting comfortabl y. No acute distress. HEENT: Shows her to have ecchymosis with a contusion above her left forehead just around the hairline. CARDIOVASCULAR: Exam shows a regular rate and rhythm. No murmurs, rubs, or gallops. PULMONARY: Lungs clear to auscultation bilaterally. ABDOMEN: Soft, nontender, nondis tended. SKIN: Shows no rash. : No Rivera. NEUROLOGIC: Exam shows her to be alert and oriented x2. She has 5/5 strength in her upper and lower extremities. Sensation is intact to light touch in her upper and lower extremities. PSYCHIATRIC: Exam shows normal mood and affect. LABS: Sodium is 126, white count is 1.07, hemoglobin 11.6, platelets are 508. DATA: 1. Discussed with Dr. Pablo. Will admit for TIA work up. 2. Head CT is reviewed and shows chronic issues but nothing acute. 3. EKG, which I personally viewed and interpreted, shows sinus rhythm. There is mild T-wave flatten ing in lead V1 that is not significantly changed from her previous. IMPRESSION AND PLAN: 1. Episode of slurred speech with subsequent confusion: Differential includes TIA, possibly focal s eizure, metabolic encephalopathy. I have placed a Neurology consult. She has already been seen by jennifer bronson neurology, I agree that tPA is not indicated. I have ordered an MRI of her brain, EEG, telemetry monitoring, echocardiogram for further evaluation. She will be monitored on . 2. Back pain: I will further evaluate with an x-ray of her lumbar spine. She has no neurologic def icits from this. If this is abnormal we will consider more advanced imaging. 3. Hyponatremia: This is somewhat acute on chronic. Will order urine electrolytes including sodium and osmolarity. Will empirically give her 1 L of normal saline. Will recheck tomorrow morning. 4. History of a subarachnoid hemorrhage with subsequent memory issues: Her is providing mos t of the history. She is at risk for delirium while she is here. 5. History of transient global amnesia x2. 6. Hypothyroid: Will continue her Synthroid. 7. Chronic obstructive pulmonary disease: Oxygen-dependent. 8. Code status: Do not resuscitate. Confirmed this with her and her , and reviewed her MOST which is scanned into [employer]. 9. Venous thromboembolism risk: She is moderate. If she stays more than 1 midnight we will need to start prophylaxis. /[id number]/MODL
--- NOTE | 2019-01-05 15:04 | CPEKG ---
Test Reason : OPEN Blood Pressure : / mmHG Vent. Rate : 081 BPM Atrial Rate : 082 BPM P-R Int : 150 ms QRS Dur : 074 ms QT Int : 368 ms P-R-T Axes : 074 058 040 degrees QTc Int : 428 ms Sinus rhythm Confirmed by Radha Pablo ([id number]) on 01/05/2019 3:04:13 PM Referred By: Radha Pablo Confirmed By:Radha Pablo
[2019-01-05] MEDS ORDERED: ACETAMINOPHEN 500 MG TAB PO ONE (16:27)
[2019-01-05] MEDS ORDERED: ACETAMINOPHEN 500 MG TAB ONE (16:29)
--- NOTE | 2019-01-05 16:51 | ECHO ---
[email or web address] [address] [address] Main: [phone] Echocardiography Examination Transthoracic Name: LISA CLARK MR#: [id number] Study Date: 01/05/2019 Study Time: 03:31 PM Date of : 1945 Age: 73 year(s) Height: 152.4 cm (60 in.) Weight: 47.63 kg (105 lb.) BSA: 1.42 m2 Gender: Female Examination: Echo Contrast: Image Quality: Adequate Rhythm: Heart Rate: 80 bpm BP: / Indication: TIA Procedure Staff Referring Physician: Credit Advisor: Barbara Olea RDCS Reading Physician: Patrick Munson MD Requesting Provider: Indication: TIA Measurements Chambers AV/MV Label Value Normal Value Label Value Normal Value IVSd, 2D 1.1 cm (0.6cm - 1.1cm) AV PGmax 7 mmHg LVDd, 2D 3.2 cm (3.9cm - 5.3cm) AV PGmean 4 mmHg LVDs, 2D 2.1 cm (2.1cm - 4cm) AV Vmax 1.33 m/s LVEF, 2D 67 % (54% - 74%) KRISTI D (continuity eq. 2.1 cm2 LVEF, BP 59 % (55% - 70%) VTI) LVEF, MOD2 57 % (55% - 70%) MV A Vmax 1.05 m/s LVEF, MOD4 65 % (55% - 70%) MV DT 232 ms LVOT PGmean 2 mmHg MV E' lateral 0.06 m/s LVOT Vmean 0.66 m/s MV E' mean 0.06 m/s LVOTd 1.9 cm (1.8cm - 2cm) MV E' septal 0.05 m/s LVPWd, 2D 1 cm MV E Vmax 0.92 m/s RVDd, 2D 3 cm (1.9cm - 3.8cm) MV E/A 0.88 LADs long. 5.2 cm MV E/E' lateral 15.4 LAESV index, BP 40.1 ml/m2 MV E/E' mean 16.73 RA Area 14.3 cm2 MV E/E' septal 18.9 (0.45 - 1.25) Additional Vessels MV PHT 0.07 s Label Value Normal Value MV PHT 65 ms AoAsc 2.6 cm MVA PHT 3.4 cm2 AoRoot, 2D 2.7 cm (1.4cm - 2.6cm) TV/PV Label Value Normal Value Patient: LISA CLARK Study Date: 01/05/2019 Page 1 of 3 03:31 PM RA Pressure 5 mmHg RVSP 62 mmHg TR Pmax 57 mmHg TR Vmax 3.76 m/s PV PGmax 2 mmHg PV Vmax, Caliper 0.79 m/s (0.6m/s - 0.9m/s) Conclusions Left Ventricle: EF range is estimated at 55 % - 60 %. Mitral Valve: Trivial to mild mitral regurgitation. Aortic Valve: Aortic leaflets are structurally normal. Trivial aortic regurgitation is present. Tricuspid Valve: Mild to moderate tricuspid regurgitation. Right Ventricular systolic pressure is measured at 62 mmHg. Findings Left Ventricle: Left ventricle is normal in size. The ejection fraction, measured by Simpsons method, is 59 %. EF range is estimated at 55 % - 60 %. There are no regional wall motion abnormalities. Grade II Diastolic Dysfunction. No LV hypertrophy. Right Ventricle: Normal size right ventricle. Right ventricular systolic function is normal. Left Atrium: The left atrium is mildly dilated. Mitral Valve: Mitral valve appears structurally normal. Trivial to mild mitral regurgitation. No mitral valve stenosis. Aortic Valve: Aortic leaflets are structurally normal. Trivial aortic regurgitation is present. There is no aortic stenosis. Tricuspid Valve: Tricuspid valve leaflets are structurally normal. Mild to moderate tricuspid regurgitation. No tricuspid valve stenosis. Right Ventricular systolic pressure is measured at 62 mmHg. Pulmonary artery pressure moderately increased. Pulmonic Valve: Pulmonic leaflets are structurally normal. Trivial pulmonic valve regurgitation is present. Aorta: The aortic root size in 2D measures 2.7 cm. The ascending aorta measures 2.6 cm. Aorta Measurements AoRoot, 2D is 2.7 cm. Exam Details Procedure Ordered: Echo Procedure Status: Routine study Image Quality: Adequate Facility Location: Cardiac Echo 1 Patient: LISA CLARK Study Date: 01/05/2019 Page 2 of 3 03:31 PM (No Signature Object) Patient: LISA CLARK Study Date: 01/05/2019 Page 3 of 3 03:31 PM [id number]
[2019-01-05] MEDS ORDERED: ALBUTEROL 60 PUFFS/8 GM MDI IH PRN (19:37)
[2019-01-05] MEDS ORDERED: ACETAMINOPHEN 500 MG TAB PO PRN (19:37)
[2019-01-05] MEDS: BECLOMETHASONE QVAR 80 REDIHALER 120 INH/10.6 GM MDI IH SCH (20:22)
[2019-01-06] MEDS ORDERED: hydrALAZINE 10 MG TAB PO ONE (00:55)
[2019-01-06 05:20] LABS: PLATELET COUNT 424 10^3/uL (150-400)
[2019-01-06] MEDS: LEVOTHYROXINE 100 MCG TAB PO SCH (05:22)
[2019-01-06] MEDS: TIOTROPIUM INHALER 18 MCG/DOSE 5 DOSE/MDI IH SCH (08:47)
[2019-01-06] MEDS: BECLOMETHASONE QVAR 80 REDIHALER 120 INH/10.6 GM MDI IH SCH ×2 (08:47→22:13)
[2019-01-06] MEDS: METOPROLOL SUCCINATE XR 50 MG TAB PO SCH (09:12)
[2019-01-06] MEDS: ROSUVASTATIN CALCIUM 10 MG TAB PO SCH (09:13)
[2019-01-06] MEDS ORDERED: ONDANSETRON DISINTEGRATING 4 MG TAB PO PRN (09:14)
[2019-01-06] MEDS ORDERED: ONDANSETRON 4 MG/2 ML VIAL IVP PRN (09:14)
[2019-01-06] MEDS: DULoxetine 20 MG CAP PO SCH (09:14)
--- NOTE | 2019-01-06 09:33 | NEUROPROG ---
Assessment: [id number] - Neurology Consult: - CC: Slurred Speech with possible TIA - HPI: 01/06/19: Pt has a history of a fall with SAH and subsequent memory issues. She has also had two episodes of transient global amnesia. On the morning of she became confused, began slurring her speech, and then fell backwards striking her head. Since then her cognition had been improving. She was brought to [facility] where head CT showed no bleed and brain MRI showed no stroke or any acute intracranial abnl. She does have chronic back pain and was also noted to have a lumbar compression fracture. Pts sodium on admission was 126. Her neurologic exam on 01/06/19 showed no focal abnl. Given history of her confusional episode on 01/05/19 (slurred speech, confusion, and fall) seems less likely to represent a TIA and more likely to represent an acute confusional state in an elderly individual predisposed to getting them (low sodium, history of SAH with brain injury, recurrent TGA) I would not recommend any antiplatelet therapy. Pt has prior head bleed and continues to be a fall risk further making me feel antiplatelet therapy would seem to represent more harm then benefit. I will check EEG to ensure no epileptic discharges as well. - PMHx: hypothyroidism, RAD, GERD, HLD, SAH af a fall with subsequent memory issues, 2 episodes of TGA, back injury, COPD - Home Meds: crestor 10 mg qd - SHx: FHx: NC - ROS: Pt denied acute fever, total vision loss, active severe chest pain, respiratory failure, total body severe rash, total bowel/bladder incontinence, psychosis, active seizures, or active bleeding - O: VS reviewed General: Alert Eyes: Fundoscopic exam not able to visualize optic disks CV: Heart RRR, no murmur, no carotid bruit Lungs: Clear to auscultation bilaterally, no rhonchi or rales Neuro: - Mental: . Oriented x person/place but not date . concentration appears normal . speech fluency/comprehension normal . memory appears normal . fund of knowledge appear intact - Cranial Nerves: . II: PERRL, VFFTC . III/IV/: EOMI, no nystagmus, normal smooth pursuits, no Ptosis . V: facial sensation intact to LT . VII: face symmetric to eye closure and smile . VIII: hearing intact to conversation . IX/X: uvula raises symmetrically . XI: SCM 5/5 B/L strength . XII: tongue protrudes midline w/nl strength - Motor: . Tone: normal tone in all 4 extremity . Strength: no pronator drift, strength 5/5 throughout (B/L delt, bic, tri, hand smalltalk developer, hf/he, df/pf) - Reflexes: B/L bic 2/4 - Sensory: all 4 extremity intact to light touch - Coord: NATHANIEL wnl - Gait: deferred - Labs: 01/05/19- Na 126L - Rads: 01/05/19- TTE: no cardiac thrombus noted, EF 55-60% 01/05/19- Head CT wo con: no hemorrhage 01/05/19- Brain MRI wo: no stroke, mod atrophy, severe CMVD, L frontal scalp and subgaleal hemorrhage, no intracranial bleed (I personally visualized the images on 01/05/19) - Assessment: 1. Acute Confusional State: Given history of her confusional episode on 01/05/19 (slurred speech, confusion, and fall) seems less likely to represent a TIA and more likely to represent an acute confusional state in an elderly individual predisposed to getting them (low sodium, history of SAH with brain injury, recurrent TGA) I would not recommend any antiplatelet therapy. Pt has prior head bleed and continues to be a fall risk further making me feel antiplatelet therapy would seem to represent more harm then benefit. I will check EEG to ensure no epileptic discharges as well. - Plan: - EEG - Agree with PT/OT/speech consults - If EEG shows no concerning findings neurology will sign off as there does not appear to be any further inpt neurologic w/u needed Objective: Vital Signs Temp Pulse Resp BP Pulse Ox 36.8 C 88 16 158/97 H 96 01/06/19 04:00 01/06/19 09:12 01/06/19 08:49 01/06/19 09:12 01/06/19 08:49 Laboratory Results 01/06/19 04:52 01/06/19 04:52 01/05/19 01/06/19 01/07/19 05:59 05:59 05:59 Output Total 1100 Balance -1100 Allergies/Adverse Reactions: tramadol Allergy (Unknown, Verified 07/30/18 21:23) Other-Enter Comments
[2019-01-06] MEDS: ACETAMINOPHEN 325 MG TAB PO PRN ×2 (13:59→22:12)
--- NOTE | 2019-01-06 15:31 | HOSPPROG ---
Hospitalist Progress Note Assessment/Plan: 73 yo F w slurred speech and recent fall ?TIA; not a TIA hyponatremia: acute suspect this is the source of her slurred speech and fall SIADH fluid restrict, q8 Na and ensure w meals fall: PT/OT >? seizure: eeg ordered htn: continue meds dispo: change to inpt proph: add lmwh (h/o SAH noted) Subjective: c ase d/w dr cash. no AF tele. alert Objective: Vital Signs Temp Pulse Resp BP Pulse Ox 36.6 C 84 22 H 171/86 H 96 01/06/19 12:00 01/06/19 12:00 01/06/19 12:00 01/06/19 12:00 01/06/19 12:00 Laboratory Results 01/06/19 04:52 01/06/19 04:52 01/05/19 01/06/19 01/07/19 05:59 05:59 05:59 Output Total 1100 300 Balance -1100 -300 - Physical Exam Constitutional: no apparent distress, appears nourished Eyes: PERRL, anicteric sclera, other (facial bruising) Ears, Nose, Mouth, Throat: moist mucous membranes, hearing normal Cardiovascular: regular rate and rhythym, no murmur, rub, or gallop Respiratory: no respiratory distress, no rales or rhonchi Gastrointestinal: normoactive bowel sounds, soft, non-tender abdomen Genitourinary: no bladder fullness, No faulkner in urethra Skin: warm, normal color Musculoskeletal: full muscle strength Neurologic: AAOx3 ICD10 Worksheet Patient Problems: Problems Problem Status Onset Acute bronchitis Acute Asthma exacerbation Acute COPD exacerbation Acute Subarachnoid hemorrhage Acute TIA (transient ischemic attack) Acute Thoracic compression fracture Acute
--- NOTE | 2019-01-06 16:11 | PDMN ---
Medical Necessity Medical necessity: Change to inpt as of 01/06/19 @ 15:32, pt meets inpt criteria per MD order and Neurology GRG. 73 y/o w/hx SAH and subsequent memory issues presented w/slurred speech, recent fall, and more confused than baseline, initially admitted as possible TIA vs possible focal seizure vs metabolic encephalopathy, hyponatremic w/Na of 126. Upgraded to inpt for persistent acute hyponatremia (last Na125) and further workup needed to determine etiology of symptoms (unlikely TIA), EEG pending, fluid restriction, q8hr Na checks. Add'l PMH includes RAD, COPD (on chronic O2 w/resp failure), back injury, and two episodes of reported transient global amnesia. Est LOS>2MN for ongoing eval/ management of above.
--- NOTE | 2019-01-06 16:25 | ASMTCMCOM ---
CM Note CM Note Notes: Pts case discussed w/ Dr. Alvarez and KELLY Garcia. Pt is a 73 y/o female admitted for a TIA. [facility] has cleared pt to d/c without any needs. Neurology has been following this pt. Needs are TBD at this time. CM to follow. Plan: TBD Date Signed: 01/06/2019 04:25 PM Electronically Signed By:RADHA Drummond
[2019-01-06] MEDS: ENOXAPARIN 30 MG/0.3 ML SYR SC SCH (18:03)
[2019-01-07] MEDS: ACETAMINOPHEN 325 MG TAB PO PRN ×3 (05:42→22:21)
[2019-01-07] MEDS: LEVOTHYROXINE 100 MCG TAB PO SCH (05:43)
--- NOTE | 2019-01-07 06:13 | CPEEG ---
[f rep st] ELECTROENCEPHALOGRAM INPATIENT EEG PROCEDURE NOTE DATE OF STUDY: 01/06/2019 DATE OF INTERPRETATION: 01/06/2019 This is an EEG performed for 20 minutes and 34 seconds. There is significant eye movement artifact, possibly obscuring subtle underlying abnormalities. However, there are no clear abnormalities noted on this testing. There are no epileptiform discharges or focal slowing. Posterior dominant rhythm b est estimated at 8.5 Hz, but difficult to determine due to eye movement artifact. IMPRESSION: Overall normal electroencephalogram with no evidence of epileptiform discharges or seizu re activity. /[id number]/MODL
[2019-01-07] MEDS: METOPROLOL SUCCINATE XR 50 MG TAB PO SCH (06:40)
[2019-01-07] MEDS: TIOTROPIUM INHALER 18 MCG/DOSE 5 DOSE/MDI IH SCH (10:43)
[2019-01-07] MEDS: BECLOMETHASONE QVAR 80 REDIHALER 120 INH/10.6 GM MDI IH SCH ×2 (10:43→22:01)
[2019-01-07] MEDS: DULoxetine 20 MG CAP PO SCH (10:49)
[2019-01-07] MEDS: ENOXAPARIN 30 MG/0.3 ML SYR SC SCH (10:49)
[2019-01-07] MEDS: ROSUVASTATIN CALCIUM 10 MG TAB PO SCH (10:49)
--- NOTE | 2019-01-07 16:19 | HOSPPROG ---
Hospitalist Progress Note Assessment/Plan: 73 yo F w slurred speech and recent fall ?TIA; not a TIA hyponatremia: acute suspect this is the source of her slurred speech and fall SIADH fluid restrict, q8 Na and ensure w meals fell today despite fluid restriction start salt tabs fall: PT/OT ? seizure: eeg probably negative given low suspicion, will call this negative htn: continue meds dispo: change to inpt proph: add lmwh (h/o SAH noted) Subjective: case d/w dr cash Objective: Vital Signs Temp Pulse Resp BP Pulse Ox 36.7 C 91 19 151/99 H 94 01/07/19 12:00 01/07/19 12:00 01/07/19 12:00 01/07/19 12:00 01/07/19 12:00 Laboratory Results 01/07/19 15:45 01/06/19 01/07/19 01/08/19 05:59 05:59 05:59 Intake Total 250 Output Total 900 250 Balance -650 -250 - Physical Exam Constitutional: no apparent distress, appears nourished Eyes: PERRL, other (facial bruising) Ears, Nose, Mouth, Throat: moist mucous membranes, hearing normal Cardiovascular: regular rate and rhythym, no murmur, rub, or gallop Respiratory: no respiratory distress, no rales or rhonchi Gastrointestinal: normoactive bowel sounds, soft, non-tender abdomen Genitourinary: no bladder fullness, No faulkner in urethra Skin: warm, normal color Musculoskeletal: full muscle strength Neurologic: AAOx3, sensation intact bilaterally ICD10 Worksheet Patient Problems: Problems Problem Status Onset TIA (transient ischemic attack) Acute Acute bronchitis Acute Asthma exacerbation Acute COPD exacerbation Acute Subarachnoid hemorrhage Acute Thoracic compression fracture Acute
[2019-01-07] MEDS: SODIUM CHLORIDE 1,000 MG TAB PO SCH (19:19)
[2019-01-07] MEDS ORDERED: LORazepam 2 MG/ML INJ IVP ONE (22:05)
[2019-01-08] MEDS: LEVOTHYROXINE 100 MCG TAB PO SCH (06:05)
[2019-01-08] MEDS: BECLOMETHASONE QVAR 80 REDIHALER 120 INH/10.6 GM MDI IH SCH ×2 (08:24→20:43)
[2019-01-08] MEDS: TIOTROPIUM INHALER 18 MCG/DOSE 5 DOSE/MDI IH SCH (08:24)
[2019-01-08] MEDS: SODIUM CHLORIDE 1,000 MG TAB PO SCH ×3 (08:53→17:58)
[2019-01-08] MEDS: ROSUVASTATIN CALCIUM 10 MG TAB PO SCH (08:54)
[2019-01-08] MEDS: METOPROLOL SUCCINATE XR 50 MG TAB PO SCH (08:54)
[2019-01-08] MEDS: DULoxetine 20 MG CAP PO SCH (08:55)
[2019-01-08] MEDS: ENOXAPARIN 30 MG/0.3 ML SYR SC SCH (08:55)
[2019-01-08] MEDS: ACETAMINOPHEN 325 MG TAB PO PRN ×2 (10:30→20:57)
--- NOTE | 2019-01-08 11:36 | HOSPPROG ---
Hospitalist Progress Note Assessment/Plan: 73 yo F w slurred speech and recent fall ?TIA; not a TIA hyponatremia: acute suspect this is the source of her slurred speech and fall SIADH fluid restrict, q8 Na and ensure w meals fell today despite fluid restriction start salt tabs 01/08- starting to rise additional history s/o poor po intake tsh OK goal 132, at least, prior to dc hip/pelvis pain: check films bearing weight, doubt hip fracture head hematoma: bigger today dc lmwh fall: PT/OT ? seizure: eeg probably negative given low suspicion, will call this negative htn: continue meds dispo: change to inpt proph: scd's Subjective: Na 128. c/o L hip and SI joint pain. acknowledges some confusion Objective: Vital Signs Temp Pulse Resp BP Pulse Ox 36.9 C 93 16 157/105 H 97 01/08/19 07:51 01/08/19 08:54 01/08/19 08:30 01/08/19 08:54 01/08/19 08:30 Laboratory Results 01/08/19 04:32 01/07/19 01/08/19 01/09/19 05:59 05:59 05:59 Intake Total 250 1000 Output Total 900 450 Balance -650 550 - Physical Exam Constitutional: no apparent distress, appears nourished Eyes: PERRL, anicteric sclera Ears, Nose, Mouth, Throat: moist mucous membranes, hearing normal Cardiovascular: regular rate and rhythym, no murmur, rub, or gallop Respiratory: no respiratory distress, no rales or rhonchi Gastrointestinal: normoactive bowel sounds, soft, non-tender abdomen Genitourinary: no bladder fullness, No faulkner in urethra Skin: warm, normal color Musculoskeletal: full muscle strength ICD10 Worksheet Patient Problems: Problems Problem Status Onset TIA (transient ischemic attack) Acute Acute bronchitis Acute Asthma exacerbation Acute COPD exacerbation Acute Subarachnoid hemorrhage Acute Thoracic compression fracture Acute
--- NOTE | 2019-01-08 15:43 | GCON ---
[f rep st] CONSULTATION CHIEF COMPLAINT: Left hip fracture. HISTORY OF PRESENT ILLNESS: A 73-year-old female who was rushed in on January 05 for slurred speech by her . She had fallen and been admitted to the hospital. During the hospitalization, she was actually able to ambulate to the bathroom and move her hip around with only mild discomfort. Howeve r, she did continue to complain of some groin pain, and x-rays were taken showing the minimally displ aced valgus impacted hip fracture. Says her hip is really only painful with certain range of motions and walking. She does not have much pain at rest. PAST MEDICAL HISTORY: Osteoporosis, hypothyroidism, reactive airways, GERD, hyperlipidemia, subarach noid hemorrhage, global amnesia, back injury, COPD. MEDICATIONS: Please see the inpatient medication list. ALLERGIES: Tramadol. FAMILY HISTORY: Reviewed and noncontributory. SOCIAL HISTORY: She does not smoke. She does drink alcohol. REVIEW OF SYSTEMS: A 10-point review of systems was performed, is negative other than the above, and the mental status problems, and SIADH. PHYSICAL EXAM: VITAL SIGNS: Stable. She is alert. She is oriented. She is appropriate. HEAD: S hows large ecchymosis on the left side and contusion of above her left forehead. EYES: Equal and re active. MOUTH: Shows moist mucous membranes. NECK: Supple. CARDIOVASCULAR: Regular rhythm. PUL MONARY: She has good inspiratory effort. ABDOMEN: Soft. EXTREMITIES: Her right upper extremity: She moves well without abnormalities or areas of tenderness. She has 5/5 strength. Her left lower extremity, I can internally and externally rotate her hip with only minimal discomfort. She has slig ht tenderness to palpation of the hip and with squeeze. She has 4/5 strength with hip flexion, abduc tion. Right hip, I can move without any tenderness or pain. Distally, she has no areas of tendernes s. She is neurovascularly intact distally, 5/5 strength. IMAGING: Radiographs show a mildly displaced valgus impacted femoral neck fracture on the left. PLAN: I discussed the nature of her condition and treatment options with her and her . Given the stable appearance on x-rays as well as ability to move this with only minimal pain, I recommende d fixing this with 3 screws. We also did discuss the possibility of a replacement. She is electing for the ORIF. I discussed the possible need for a conversion to a total hip arthroplasty if she fail s to heal or if this collapses. She understands this. I think she would do well with the fixation, however. We discussed risks of nonunion, malunion, continued pain, nerve injury, blood loss, and ane sthetic complications, especially given her low sodium. We will make surgical arrangements and take her to the OR tomorrow morning. /[id number]/MODL
--- NOTE | 2019-01-08 16:17 | ASMTCMCOM ---
CM Note CM Note Notes: Pts case discussed w/ KELLY Pepper. CM met w/ pt for dispo planning. Pt will most likely require SNF after hip surgery. CM provided her w/ the senior blue book. 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 Pt would like referrals made to [facility]. Pt reports that she does not mind paying for [facility] and understands the cost is between 300-400. Referrals sent and non triggering pasrr completed. CM to follow. Plan: TBD Date Signed: 01/08/2019 04:12 PM Electronically Signed By:RADHA Drummond
[2019-01-08] MEDS: traZODone 50 MG TAB PO PRN (22:31)
[2019-01-09] MEDS: LEVOTHYROXINE 100 MCG TAB PO SCH (06:20)
[2019-01-09] MEDS ORDERED: BUPIVACAINE/EPI 0.5% 30 ML SDV ONE (07:39)
[2019-01-09] MEDS ORDERED: BUPIVACAINE/EPI 0.25% 30 ML SDV ONE (07:39)
[2019-01-09] MEDS ORDERED: ceFAZolin 2 GM/DEXTROSE 100 ML IV ONE (07:46)
--- NOTE | 2019-01-09 07:46 | SOAPPROG ---
FIORELLA Progress Note Assessment/Plan: Assessment: left hip fx Plan: OR for ORIF left hip fracture consent obtained has been NPO 01/09/19 07:45 Subjective: mild pain left hip Objective: Vital Signs Temp Pulse Resp BP Pulse Ox 36.7 C 79 17 155/88 H 94 01/09/19 07:35 01/09/19 07:35 01/09/19 07:35 01/09/19 07:35 01/09/19 07:35 Laboratory Results 01/09/19 04:48 01/08/19 01/09/19 01/10/19 05:59 05:59 05:59 Intake Total 1000 550 Output Total 450 950 Balance 550 -400 Left hip rom possible with mild pain ICD10 Worksheet Patient Problems: Problems Problem Status Onset TIA (transient ischemic attack) Acute Acute bronchitis Acute Asthma exacerbation Acute COPD exacerbation Acute Subarachnoid hemorrhage Acute Thoracic compression fracture Acute
--- NOTE | 2019-01-09 07:48 | PDANEPAE ---
ANE History of Present Illness here for hip orif ANE Past Medical History - Cardiovascular History Hx Hypertension: No Hx Arrhythmias: No Hx Chest Pain: No Hx Coronary Artery / Peripheral Vascular Disease: No Hx CHF / Valvular Disease: No Hx Palpitations: No - Pulmonary History Hx COPD: Yes Hx Asthma/Reactive Airway Disease: No Hx Recent Upper Respiratory Infection: No Hx Oxygen in Use at Home: Yes O2 in Use at Home (L/minute): 2 Hx Sleep Apnea: No Sleep Apnea Screening Result - Last Documented: Positive - Neurologic History Neurologic History Comment: h/o TIA, global amnesia, hyponatremia - Endocrine History Hx Diabetes: No Hypothyroid: Yes - Renal History Hx Renal Disorders: No - Liver History Hx Hepatic Disorders: No ANE Review of Systems Review of systems is: negative Review of Systems: - Exercise capacity Exercise capacity: >=4 METS ANE Patient History - Allergies Allergies/Adverse Reactions: tramadol Allergy (Unknown, Verified 07/30/18 21:23) Other-Enter Comments - Home Medications Home medications: home medication list seen and reviewed Home Medications: Albuterol [Proventil Inhaler HFA (*)] 1 - 2 puffs IH Q4 PRN 01/06/17 [Last Taken 07/30/18] Levothyroxine [Synthroid 100 mcg (*)] 100 mcg PO DAILY06 11/13/17 [Last Taken ] Rosuvastatin Calcium [Crestor] 10 mg PO DAILY 11/13/17 [Last Taken 01/04/19] Cholecalciferol Vit D3 [Vitamin D3 2000 units tab (OTC)] 5,000 units PO DAILY [Last Taken 01/04/19] Multivitamins [Multivitamin (*)] 1 each PO DAILY 07/04/18 [Last Taken 01/04/19] [place]-3 Fatty Acids [Fish Oil 1000 mg (*)] 1,000 mg PO DAILY 07/04/18 [Last Taken 01/04/19] Tiotropium Inhaler [Spiriva Inhaler (RX)] 18 mcg IH DAILY 07/04/18 [Last Taken 01/04/19] Acetaminophen [Tylenol ES 500 mg (*)] 500 mg PO Q6 PRN 07/30/18 [Last Taken ] Ascorbic Acid [Vitamin C 500 mg (*)] 1,000 mg PO DAILY 01/05/19 [Last Taken ] Beclomethasone Qvar 80 [Qvar 80 Redihaler (*)] 1 inh IH BID 01/05/19 [Last Taken 01/04/19] C/E/Zn/Cu/OM3/DHA/EPA/LUT/ZEAX [Preservision Areds 2 Softgel] 2 each PO DAILY [Last Taken 01/04/19] DULoxetine [Cymbalta 20 MG (RX)] 20 mg PO DAILY 01/05/19 [Last Taken 01/04/19] Metoprolol Succinate Xr [Toprol Xl 50 mg (*)] 50 mg PO DAILY 01/05/19 [Last Taken 01/04/19] - NPO status NPO Status: no food or drink >8 hours NPO Since - Liquids (Date): 01/09/19 NPO Since - Liquids (Time): 00:00 NPO Since - Solids (Date): 01/09/19 NPO Since - Solids (Time): 00:00 - Smoking Hx Smoking Status: Former smoker - Alcohol Use Alcohol Use: Sober ANE Labs/Vital Signs - Labs Result Diagrams: 01/06/19 04:52 01/09/19 04:48 - Vital Signs Blood Pressure: 155/88 Heart Rate: 79 Respiratory Rate: 17 O2 Sat (%): 94 Height: 152.4 cm Weight: 47.627 kg ANE Physical Exam - Airway Neck exam: FROM Mallampati Score: Class 1 Mouth exam: normal dental/mouth exam - Pulmonary Pulmonary: no respiratory distress - Cardiovascular Cardiovascular: regular rate and rhythym - ASA Status ASA Status: III ANE Anesthesia Plan Anesthesia Plan: MAC, spinal
[2019-01-09] MEDS ORDERED: ONDANSETRON 4 MG/2 ML VIAL IVP PRN (07:50)
[2019-01-09] MEDS ORDERED: ALBUTEROL 3 ML DEYVIAL IH PRN (07:50)
[2019-01-09] MEDS ORDERED: fentaNYL 100 MCG/2 ML INJ IVP PRN ×2 (07:50→13:00)
[2019-01-09] MEDS ORDERED: DEXAMETHASONE 4 MG/ML VIAL IVP PRN (07:50)
[2019-01-09] MEDS ORDERED: HYDROmorphONE/DILAUDID 2 MG/ML INJ IVP PRN (07:50)
[2019-01-09] MEDS ORDERED: NALOXONE HCL 0.4 MG/ML INJ IVP PRN (07:50)
[2019-01-09] MEDS ORDERED: fentaNYL 100 MCG/2 ML INJ ONE (08:09)
[2019-01-09] MEDS ORDERED: PROPOFOL/EMULSION 500 MG/50 ML BOTTLE IV ONE (08:10)
[2019-01-09] MEDS ORDERED: BUPIVACAINE 0.5% 30 ML SDV ONE (08:11)
[2019-01-09] MEDS: TIOTROPIUM INHALER 18 MCG/DOSE 5 DOSE/MDI IH SCH (09:03)
[2019-01-09] MEDS: BECLOMETHASONE QVAR 80 REDIHALER 120 INH/10.6 GM MDI IH SCH ×2 (09:03→20:40)
--- NOTE | 2019-01-09 09:32 | POSTOPPROG ---
Post Op Note Date of Operation: 01/09/19 Surgeon: Marcellus Lu Poultry Service Technician: none Anesthesiologist: Godfrey Anesthesia: GET(General Endotracheal) Pre-op Diagnosis: Left hip fracture Post-op Diagnosis: same Indication: above Procedure: orif left hip Inf/Abcess present in the surg proc area at time of surgery?: No EBL: Minimal
--- NOTE | 2019-01-09 09:36 | POSTANESTH ---
Post Anesthetic Evaluation Cardiovascular Status: Normal, Stable Respiratory Status: Normal, Stable Level of Consciousness/Mental Status: Can Participate in Eval Pain Control: Adequate, Prn Tx Ordered Nausea/Vomiting Control: Adequate, Prn Tx Ordered Complications Possibly Related to Anesthesia: None Noted
[2019-01-09] MEDS: METOPROLOL SUCCINATE XR 50 MG TAB PO SCH (12:08)
[2019-01-09] MEDS: SODIUM CHLORIDE 1,000 MG TAB PO SCH ×3 (12:08→18:10)
[2019-01-09] MEDS: DULoxetine 20 MG CAP PO SCH (12:09)
[2019-01-09] MEDS: ROSUVASTATIN CALCIUM 10 MG TAB PO SCH (12:09)
[2019-01-09] MEDS ORDERED: HYDROCODONE/APAP 5/325 TAB PO PRN (13:01)
[2019-01-09] MEDS: ACETAMINOPHEN 325 MG TAB PO PRN ×2 (16:06→21:13)
--- NOTE | 2019-01-09 16:25 | HOSPPROG ---
Hospitalist Progress Note Assessment/Plan: Subjective Follow-up on encephalopathy, hematoma, and left hip fracture. Patient had surgery this morning and postoperatively seems to be doing rather well. She is sitting it chair at the bedside without any pain complaints. She does appear clearly confused as stating she was in [facility]. I reviewed this with her was present at the bedside and informed him I suspect she had a delirium which was probably multifactorial from multiple things going on at the same time. Case was also reviewed with nursing. 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 Left hip fracture-patient is status post surgery from this morning. And seems to be recovering well. Hyponatremia-improved from 125-133 with fluid restriction. Suspecting SIADH. Encephalopathy-suspect delirium. Monitor with improving metabolic abnormalities. Acute blood loss anemia-hemoglobin declined from 11-9.7. Reassess again in the morning. May need to stop Lovenox being used for DVT prophylaxis if further decline. Hematoma-scalp. Tachycardia-sounds sinus tachycardia by exam. Continue on telemetry monitoring. Hypertension-metoprolol. Chronic hypoxic respiratory failure secondary to COPD-patient is on oxygen at night only out at home. Continue QVAR and Spiriva. Hypothyroidism-levothyroxine 100 mcg daily. DVT prophylaxis-patient is on Lovenox 40 mg daily. Disposition-will need to see how she does over the coming days with PT and OT and determine safest place for discharge. Objective: Vital Signs Temp Pulse Resp BP Pulse Ox 36.4 C 104 H 18 129/85 H 93 01/09/19 13:20 01/09/19 13:20 01/09/19 13:20 01/09/19 13:20 01/09/19 13:20 Laboratory Results 01/09/19 04:48 01/08/19 01/09/19 01/10/19 05:59 05:59 05:59 Intake Total 1000 550 300 Output Total 450 950 5 Balance 550 -400 295 ICD10 Worksheet Patient Problems: Problems Problem Status Onset TIA (transient ischemic attack) Acute Acute bronchitis Acute Asthma exacerbation Acute COPD exacerbation Acute Subarachnoid hemorrhage Acute Thoracic compression fracture Acute
[2019-01-09] MEDS: traZODone 50 MG TAB PO PRN (20:15)
--- NOTE | 2019-01-09 21:40 | GOP ---
[f rep st] OPERATIVE REPORT DATE OF OPERATION: 01/09/2019 SURGEON: Marcellus Lu MD FACING BASTER JUMPBASTING: None. ANESTHESIA: General with spinal. PREOPERATIVE DIAGNOSIS: Left hip fracture, valgus impacted. POSTOPERATIVE DIAGNOSIS: Left hip fracture, valgus impacted. PROCEDURE PERFORMED: Open reduction and internal fixation, left hip fracture. FINDINGS: SPECIMENS: None. ESTIMATED BLOOD LOSS: 5 mL. INDICATIONS: This is a female who sustained a valgus impacted hip fracture. She was able to move the hip and actually bear a little bit of weight on it. This led to a delayed diagnosis of a couple days. She did continue to have pain when she was mobilizing, however. X-rays were taken showing the fracture. On exam, I was able to range this with minimal discomfort; however, she had pain with ambulating and walking. We discussed risks and benefits of operative intervention. We discussed risks of replacement versus ORIF with 3 screws. Given the nature of the fracture, its appearance on x-ray and the stability, we elected for ORIF with 3 screws, and she consented to this. We discussed the risk for need for conversion to a hip replacement in the future, nerve injury, blood clot, failure, nonunion, malunion, continued pain. She elected to proceed. Informed consent obtained. All questions answered. She was marked preoperatively. DESCRIPTION OF PROCEDURE: She was taken to the operative suite, sterilely prepped and draped in the usual fashion after being positioned, well padded on the fracture table. A time-out was performed, verifying the site, side and location in agreeance with team. I placed 3 pins across the femoral neck in an inverted triangle using fluoroscopy and the guide. Drilled these and then sequentially placed screws, a short thread in the most inferior screw to achieve some compression in this area. Then longer threads proximally for more stability. I felt this construct was stable when I was done, took final x-rays showing good stable construct and good hardware placement, screws had good purchase. She was irrigated, closed with 2-0 Vicryl, 3-0 Quill and Dermabond, was taken to PACU in stable condition. IMPLANTS: Synthes 6.5 partially threaded screws, cannulated, x3. COMPLICATIONS: None. DRAINS: None. CONDITION: Stable. /[id number]/MODL MTDD
[2019-01-10] MEDS: ACETAMINOPHEN 325 MG TAB PO PRN ×3 (04:38→14:56)
[2019-01-10 05:11] LABS: PLATELET COUNT 428 10^3/uL (150-400)
[2019-01-10] MEDS: LEVOTHYROXINE 100 MCG TAB PO SCH (06:00)
[2019-01-10] MEDS ORDERED: ENOXAPARIN 40 MG/0.4 ML SYR SC SCH (09:00)
[2019-01-10] MEDS ORDERED: OLANZapine 2.5 MG TAB PO ONE (09:12)
[2019-01-10] MEDS: METOPROLOL SUCCINATE XR 50 MG TAB PO SCH (09:25)
[2019-01-10] MEDS: DULoxetine 20 MG CAP PO SCH (09:25)
[2019-01-10] MEDS: SODIUM CHLORIDE 1,000 MG TAB PO SCH ×2 (09:25→14:56)
[2019-01-10] MEDS: ROSUVASTATIN CALCIUM 10 MG TAB PO SCH (09:25)
--- NOTE | 2019-01-10 09:35 | SOAPPROG ---
SOAP Progress Note Assessment/Plan: Assessment: left hip fx s/p orif 01/09 Plan: Doing well wt bearing as tolerated rom as tolerated may shower, leave dressing in place no submerging f/u with me in 5 days Subjective: pain at incision site Objective: Vital Signs Temp Pulse Resp BP Pulse Ox 36.8 C 114 H 17 158/91 H 91 L 01/10/19 08:00 01/10/19 09:25 01/10/19 08:00 01/10/19 09:25 01/10/19 08:00 Laboratory Results 01/10/19 04:51 01/10/19 04:51 01/09/19 01/10/19 01/11/19 05:59 05:59 05:59 Intake Total 550 1755 Output Total 950 165 Balance -400 1590 ttp at incision good hip rom with no pain nvi distally lle ICD10 Worksheet Patient Problems: Problems Problem Status Onset TIA (transient ischemic attack) Acute Acute bronchitis Acute Asthma exacerbation Acute COPD exacerbation Acute Subarachnoid hemorrhage Acute Thoracic compression fracture Acute
[2019-01-10] MEDS: TIOTROPIUM INHALER 18 MCG/DOSE 5 DOSE/MDI IH SCH (10:18)
[2019-01-10] MEDS: BECLOMETHASONE QVAR 80 REDIHALER 120 INH/10.6 GM MDI IH SCH (10:19)
[2019-01-10 15:49] VITALS: BP 159/99
--- NOTE | 2019-01-10 16:02 | PDIAF ---
- Diagnosis Diagnosis: hip fracture Code Status: Do Not Resuscitate - Medication Management Discharge Medications: electronically signed and located in the Home Medication List. - Orders Services needed: Physical Therapy, Occupational Therapy Isolation Type: None Diet Recommendation: fluid restriction (use comment for amount) (1,000ml per 24 hour period.) Diet Texture: Regular Texture Diet Additional Instructions: wt bearing as tolerated rom as tolerated may shower, leave dressing in place no submerging f/u with me in 5 days - Follow Up Care Current Providers and Referrals: Bruna Mercado MD [Primary Care Provider] - As per Instructions Marcellus Lu MD [Medical Doctor] - 01/15/19
--- NOTE | 2019-01-10 16:31 | ASMTLACE ---
LACE Length of stay for Answers: 4-6 days current admission Acuity / Level of Answers: Yes Care: Did the patient have an inpatient admission? Comorbidities - select Answers: Cerebrovascular disease all that apply (CVA, TIA, aneurysms, vasc ular dementia) # of Emergency department Answers: 1-2 visits in the last 6 months Score: 9 Date Signed: 01/10/2019 04:30 PM Electronically Signed By:ABE Aguirre
--- NOTE | 2019-01-10 16:34 | ASMTCMCOM ---
CM Note CM Note Notes: OT rec 12/05 supervision vs SNF, PT rec [facility], 24 supervision vs SNF. Pt and [facility] decline SNF and want to d/c today. Pt requires a ayesha walker, the prescription and clinicals were faxed to [facility] [phone]. Gina called [facility] and reported they would be able to deliver the walker to the hospital today. Pt agreeable to [facility] PT/OT, [facility] alerted for [facility] referral. Pt address/phone verified, orders to be obtained via Drop[employer]. Date Signed: 01/10/2019 04:33 PM Electronically Signed By:ABE Aguirre
--- NOTE | 2019-01-10 17:11 | GDS ---
[f rep st] DISCHARGE SUMMARY PRIMARY CARE PROVIDER: Fabiana Mercado MD DISCHARGE DIAGNOSES: 1. Left hip fracture. 2. Encephalopathy. HISTORY OF PRESENT ILLNESS: Ms. Mota is a pleasant 73-year-old female with a past medical history of hypertension as well as chronic hypoxic respiratory failure secondary to COPD, who was initially admitted to the hospital on 2018, with concerns for a stroke. MRI imaging of her brain did not reveal any evidence of an acute infarct. Neurology was consulted on her case. During her hospitalization, she complained of left hip pain and an x-ray was obtained, which showed evidence of a left femoral neck fracture. She subsequently underwent for surgery on the morning of 01/09/2019. Postoperatively, she did quite well, particularly in regard to pain control, only needing acetaminophen, but was quite confused and felt to most likely have a delirium. Her added that she had delirium on a prior hospitalization, which improved promptly upon returning to her home. Today, both the patient and her are requesting a discharge home. I worked with Case Management to ensure we had a front wheel walker along with arrangements for PT and OT. Fortunately, all these arrangements were able to occur and the patient was felt safe for discharge home with 12/05 supervision by her who was quite attentive to her during the hospitalization. HOSPITAL COURSE BY PROBLEM: 1. Left hip pain, good control with current acetaminophen. I recommend that we continue with this approach. I did, however, recommend that she have a prescription for hydrocodone at her pharmacy in case of escalating pain levels. 2. Left hip fracture, status post surgical intervention. Outpatient followup with Orthopedic Surgery. 3. Hyponatremia, improved, and is at 133 at the time of discharge. Possible SIADH. I recommend that she continue with a 1 L per 24 hour fluid restriction and plan on a followup visit with her primary provider, Dr. Mercado, to reassess sodium and see if we can liberate the fluid restriction. 4. Encephalopathy, metabolic. Likely delirium from multiple factors. I think she is better today as she was able to tell me we were in [place], [place], where yesterday she stated she was in [place], [place]. Her concedes that she does seem better as well. 5. Acute blood loss anemia, as expected from surgery. Hemoglobin is stable today at 9 from 9 yesterday. 6. Hematoma, left frontal head hematoma. This is secondary to her fall prior to coming in. It does not appear to be enlarging. 7. Hypertension, no changes were made during this hospitalization. 8. Chronic hypoxic respiratory failure secondary to COPD, stable during this hospitalization. She will continue her inhaler regimen. No changes made. 9. Hypothyroidism, levothyroxine unchanged. 10. DVT prophylaxis. Will continue with Lovenox for 13 more doses. Her mobility is quite better at this point in time. 11. Disposition: She appears stable for discharge home under the care of her . DISCHARGE PHYSICAL EXAMINATION: VITAL SIGNS: Temperature 36.8, blood pressure 158/91, heart rate 105, respirations 18, saturating 94%. GENERAL: Patient appears comfortable sitting in chair at the bedside. Awake, alert, conversant, no acute distress. Alert and oriented x3. HEART: Regular. No murmurs appreciated. LUNGS: Clear to auscultation with normal respiratory effort. ABDOMEN: Soft, nontender. : No Rivera catheter. EXTREMITIES: No significant edema or calf pain with palpation. NOTABLE STUDIES: Echocardiogram showed estimated ejection fraction 59%. No wall motion abnormalities. Mildly dilated left atrium. White blood cell count 9, hemoglobin 9.9, platelets 428. Sodium is 133, potassium 4.0, chloride 98, bicarb 27, BUN 10, creatinine 0.6, glucose 121. TSH 0.715. DISCHARGE MEDICATIONS: 1. Lovenox 40 mg subcu daily for 13 additional doses. 2. Hydrocodone/acetaminophen 5/325 one tablet every 4 hours as needed for pain , 10 tablets dispensed. 3. Albuterol inhaler as needed. 4. Crestor 10 mg daily. 5. Levothyroxine 100 mcg daily. 6. Spiriva 1 inhalation daily. 7. Cymbalta 20 mg daily. 8. Qvar 1 inhalation twice a day. 9. Metoprolol succinate XR 50 mg daily. DISCHARGE INSTRUCTIONS: A followup visit with her primary provider in 1-2 weeks ' time as well as with Orthopedic surgery on 01/15/2019. 40 minutes time dedicated to discharge efforts today. /[id number]/MODL MTDD
[2019-01-10] MEDS ORDERED: OLANZapine 2.5 MG TAB PO SCH (21:00)
--- NOTE | 2019-01-11 08:59 | ASDISCHSUM ---
Discharge Information Plan Status:Home with Home Health Medically Cleared to Leave: Discharge Date:01/10/2019 05:12 PM CM D/C Disposition: ADT D/C Disposition:Home Health Service Projected Discharge Date:01/10/2019 11:00 AM Transportation at D/C: Discharge Delay Reason: Follow-Up Date:01/10/2019 11:00 AM Discharge Slot: Final Diagnosis: Placement Information Referral Type:*Senior Living/SNF Referral ID:[id number] Provider Name: Address 1: Phone Number: Address 2: Fax Number: City: Selection Factors: State: Referral Type:*Home Health Care Services Referral ID:[id number] Provider Name:[facility] Address 1:[address] [address] Address 2: City:[place] Selection Factors: State:[place] Patient Contact Information Contact Name:SALMA Relationship: Address:[address] [place] [address] City:[place] Alternate Phone: State/Zip Code:[place] [address] Email: Financial Information Financial Class:Medicare Advantage Plans Primary Plan Desc:[employer] I PPO Primary Plan Number:[id number] Secondary Plan Desc: Secondary Plan Number: Assessment Information LACE LACE Length of stay for Answers: 4-6 days current admission Acuity / Level of Answers: Yes Care: Did the patient have an inpatient admission? Comorbidities - select Answers: Cerebrovascular disease all that apply (CVA, TIA, aneurysms, vasc ular dementia) # of Emergency department Answers: 1-2 visits in the last 6 months Score: 9 Date Signed: 01/10/2019 04:30 PM Electronically Signed By:ABE Aguirre [facility] Progress Note CM Note CM Note Notes: Pts case discussed w/ Dr. Alvarez and KELLY Garcia. Pt is a 73 y/o female admitted for a TIA. [facility] has cleared pt to d/c without any needs. Neurology has been following this pt. Needs are TBD at this time. CM to follow. Plan: TBD Date Signed: 01/06/2019 04:25 PM Electronically Signed By:RADHA [facility] Progress Note CM Note CM Note Notes: Pts case discussed w/ KELLY Pepper. CM met w/ pt for dispo planning. Pt will most likely require SNF after hip surgery. CM provided her w/ the senior blue book. 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 Pt would like referrals made to [facility] and [facility]. Pt reports that she does not mind paying for [facility] and understands the cost is between 300-400. Referrals sent and non triggering pasrr completed. CM to follow. Plan: TBD Date Signed: 01/08/2019 04:12 PM Electronically Signed By:RADHA [facility] Progress Note CM Note CM Note Notes: OT rec 12/05 supervision vs SNF, PT rec [facility], 12/05 supervision vs SNF. Pt and [facility] decline SNF and want to d/c today. Pt requires a ayesha walker, the prescription and clinicals were faxed to [facility] [phone]. Gina called [facility] and reported they would be able to deliver the walker to the hospital today. Pt agreeable to [facility] PT/OT, [place] alerted for [facility] referral. Pt address/phone verified, orders to be obtained via [employer]. Date Signed: 01/10/2019 04:33 PM Electronically Signed By:ABE Aguirre Intervention Information Intervention Type:No Admission Order Date of Service:01/06/2019 08:58 AM Patient Type:Observation Staff Member:KELLY Gomez, Tracie Hours: Discipline: Severity: Comment:
== END 2019-01-10 17:12 | disposition home health service (06) | DRG 480 ==
LOC: F3N 18:19 → OBSVTOIN 01-06 15:32
PROVIDERS: ADMIT Student in an Organized Health Care Education/Training Program; ATTEND Student in an Organized Health Care Education/Training Program
PROC: 0QS704Z Reposition Left Upper Femur with Internal Fixation Device, Open Approach (ICD-10-PCS; principal; 2019-01-09 08:00)
DX: S72.92XA Unspecified fracture of left femur, initial encounter for closed fracture (principal); W19.XXXA Unspecified fall, initial encounter; G93.41 Metabolic encephalopathy; D62 Acute posthemorrhagic anemia; E22.2 Syndrome of inappropriate secretion of antidiuretic hormone; S00.83XA Contusion of other part of head, initial encounter; R26.89 Other abnormalities of gait and mobility; J44.9 Chronic obstructive pulmonary disease, unspecified; J96.11 Chronic respiratory failure with hypoxia; E03.9 Hypothyroidism, unspecified; E78.00 Pure hypercholesterolemia, unspecified; K21.9 Gastro-esophageal reflux disease without esophagitis; Z99.81 Dependence on supplemental oxygen; Z87.891 Personal history of nicotine dependence
CPT/HCPCS: 70551-PN; 82435-PO; 82565-PO; 82947-PO; 84132-PO; 84295-PO; 84484-ER; 84520-PO; 85014-ER; 92523-GN; 97116-GP; 97161-GP; 97165-GO; 97530-GP; C1713; C1769; G0378; J0690; J1650; J2060; J2704; J3010